=== PATIENT | female | born 1940 | race Caucasian/White ===

== ENCOUNTER → 2017-09-20 | Outpatient (CLI) | payer MEDICARE, BC | END | disposition home or self-care (01) | LOC: KCIC MRI 13:03 | DX: M16.11 Unilateral primary osteoarthritis, right hip (principal); M25.751 Osteophyte, right hip | CPT/HCPCS: 73721 ==

== ENCOUNTER → 2017-10-20 | Outpatient (CLI) | payer MEDICARE, BC ==
[2017-10-20] MEDS: methylPREDNISolone ACETATE 40 MG/ML VIAL. INT ART (15:40)
[2017-10-20] MEDS: LIDOCAINE 1% Multi-Dose 20 ML VIAL. ID (15:40)
[2017-10-20] MEDS: BUPIVACAINE MPF 0.5% 10 ML VIAL for KCIC. IJ (15:40)
[2017-10-20] MEDS: IOHEXOL 300 MG/ML 50 ML VIAL. INT ART (15:40)
== END | disposition home or self-care (01) ==
LOC: KCIC 13:12
DX: M16.11 Unilateral primary osteoarthritis, right hip (principal)
CPT/HCPCS: 20610; 77002; J1030; Q9967

== ENCOUNTER → 2018-01-31 | Outpatient (CLI) | payer MEDICARE, BC ==
[2018-01-31 09:11] LABS: INR 0.9 (0.8-1.1)
[2018-01-31 09:12] LABS: PARTIAL THROMBOPLASTIN TIME 26 SEC (24-38)
[2018-01-31 10:07] LABS: SEDIMENTATION RATE 35 (0-25)
[2018-01-31 22:11] LABS: MRSA BY PCR Negative (Negative)
== END | disposition home or self-care (01) ==
LOC: SURGPAT 13:06
DX: Z01.818 Encounter for other preprocedural examination (principal); I10 Essential (primary) hypertension; J84.10 Pulmonary fibrosis, unspecified
CPT/HCPCS: 36415; 71046; 85610; 85651; 85730; 87641; 93005

== ENCOUNTER 2018-05-20 18:46 | Inpatient (IN) | payer MEDICARE, BC ==
[~2018-05-20] VITALS: Ht 162.6 cm; Wt 88.5 kg
[~2018-05-20 18:46] MED LIST: ASCO1TAB5 PO; BIOT10005 PO; CHOL100013 PO; ESTR2TAB4 PO; FAMO40TA4 PO; LEVO50TA5 PO; METF500T16 PO; POTA20TA82 PO; POTA99TA3 PO
[2018-05-20 21:00] VITALS: BP 146/76
[2018-05-20 21:15] VITALS: BP 142/52
[2018-05-20 21:30] VITALS: BP 112/53
[2018-05-20] MEDS ORDERED: ACETAMINOPHEN 325 MG TABLET. PO PRN (21:30)
[2018-05-20] MEDS ORDERED: MORPHINE SULFATE 2 MG/ML VIAL. IV PRN (21:30)
[2018-05-20 22:00] VITALS: BP 137/49
[2018-05-20] MEDS ORDERED: PANTOPRAZOLE IV PUSH 40 MG VIAL. IVP ONE (22:00)
[2018-05-20] MEDS ORDERED: METF10007 PO (22:02)
[2018-05-20] MEDS ORDERED: GLYB2.5T2 PO (22:02)
[2018-05-20] MEDS: PANTOPRAZOLE SODIUM IV DRIP 80 MG in IV NORMAL SALINE 100ML 100 ML IV SCH (22:26)
[2018-05-20] MEDS: IV NORMAL SALINE 1000ML BAG 1,000 ML IV SCH (22:27)
[2018-05-20 23:00] VITALS: BP 131/51
[2018-05-21] VITALS (25 sets, daily range): BP systolic 84–160; BP diastolic 39–73
[2018-05-21 05:02] LABS: BASO # 0.1 x10^3/uL (0.0-0.2); BASO % 1 % (0-3); EOS # 0.1 x10^3/uL (0.0-0.7); EOS % 2 % (0-3); HEMATOCRIT 30.4 % (36.0-47.0); HEMOGLOBIN 10.4 g/dL (12.0-15.5); LYMPH # 2.2 x10^3/uL (1.0-4.8); LYMPH % 28 % (24-48); MEAN CORPUSCULAR HEMOGLOBIN 35 pg (25-35); MEAN CORPUSCULAR HGB CONC 34 g/dL (31-37); MEAN CORPUSCULAR VOLUME 101 fL (79-100); MONO # 0.8 x10^3/uL (0.0-1.1); MONO % 11 % (0-9); NEUT # 4.7 x10^3uL (1.8-7.7); NEUT % 59 % (31-73); PLATELET COUNT 191 x10^3/uL (140-400); RED BLOOD COUNT 3.01 x10^6/uL (3.50-5.40); RED CELL DISTRIBUTION WIDTH 13.5 % (11.5-14.5); WHITE BLOOD COUNT 7.9 x10^3/uL (4.0-11.0)
[2018-05-21 05:08] LABS: PROTHROMBIN TIME PATIENT 14.3 SEC (11.7-14.0)
[2018-05-21 05:25] LABS: CALCIUM 7.8 mg/dL (8.5-10.1); CREATININE 0.6 mg/dL (0.6-1.0); GFR 97.2; POTASSIUM 4.2 mmol/L (3.5-5.1)
[2018-05-21] MEDS: PANTOPRAZOLE SODIUM IV DRIP 80 MG in IV NORMAL SALINE 100ML 100 ML IV SCH ×2 (06:47→22:53)
[2018-05-21] MEDS ORDERED: PANTOPRAZOLE IV PUSH 40 MG VIAL. IVP SCH (07:30)
[2018-05-21] MEDS: ONDANSETRON PF 4 MG/2 ML VIAL. IV PRN ×2 (09:39→21:55)
[2018-05-21] MEDS ORDERED: HEPARIN for NUC MED 500 UNIT/5 ML DISP.SYRIN. IV ONE (10:30)
[2018-05-21] MEDS ORDERED: IV NORMAL SALINE 1000ML BAG 1,000 ML IV ONE (10:45)
--- NOTE | 2018-05-21 12:39 | RAD ---
EXAM: Gastrointestinal bleeding study. HISTORY: Gastrointestinal hemorrhage, hypotension. COMPARISON: None. FINDINGS: 33 mCi technetium 99m UltraTag red blood cells were administered intravenously. Scintigraphic images of the abdomen were obtained through one hour. Activity develops within the left upper quadrant at approximately 33 minutes. This appears to be in the region of the splenic flexure of the colon. Activity passes retrograde into the transverse portion and slightly into the descending portion. IMPRESSION: 1. Active bleeding in the region of the splenic flexure of the colon. These findings were called to Jim by Haresh Brunson on 05/21/2018 at 12:34 PM. Electronically signed by: Basil Brunson MD (05/21/2018 12:36 PM) [facility]
[2018-05-21 12:52] LABS: HEMATOCRIT 29.8 % (36.0-47.0); HEMOGLOBIN 10.2 g/dL (12.0-15.5)
[2018-05-21] MEDS ORDERED: DEXTROSE 50% 25 GM / 50ML DISP.SYRIN. IV PRN (13:00)
--- NOTE | 2018-05-21 13:04 | PDOC1 ---
History and Physical Date of Admission Date of Admission 05/21/18 Identification/Chief Complaint Chief Complaint gib Source Source: Chart review, Patient History of Present Illness History of Present Illness 78YO f, previous EMT, with dm2, was transferred from [facility] for lower gib. pt said she has diverticula thinking it is from there and never happened before. SHe started to have bright red BM with some clots yesterday, 2 times before going to [facility] and 2 times here overnight. Pt said it looks "like wine". hb 14 in [facility], 10 here. BP lower side at 80s-90s systolic. when asked if she has any abd pain or N/V, she just said"no symptom". Past Medical History Endocrine: Diabetes Past Surgical History Past Surgical History: Other, No pertinent history Family History Family History: Hypertension Social History Smoke: No ALCOHOL: none Drugs: None Current Medications Current Medications Current Medications Medications (Trade) Dose Ordered Sig/Marco Start Time Stop Time Status Last Admin Dose Admin Acetaminophen (Tylenol) 650 mg PRN Q6HRS PRN 05/20/18 21:30 Heparin Sodium (Porcine) (HEPARIN for NUC MED) 100 unit 1X ONCE 05/21/18 10:30 05/21/18 10:31 DC 05/21/18 10:30 100 UNIT Morphine Sulfate (Morphine Sulfate) 2 mg PRN Q2HR PRN 05/20/18 21:30 Ondansetron HCl (Zofran) 4 mg PRN Q6HRS PRN 05/20/18 21:30 05/21/18 09:39 4 MG Pantoprazole Sodium (PROTONIX VIAL for IV PUSH) 80 mg 1X ONCE 05/20/18 22:00 05/20/18 22:01 DC 05/20/18 22:27 80 MG Pantoprazole Sodium 80 mg/ Sodium Chloride 100 ml @ 10 mls/hr Q10H 05/20/18 22:00 05/21/18 06:47 10 MLS/HR Sodium Chloride 1,000 ml @ 1,000 mls/hr 1X ONCE 05/21/18 10:45 05/21/18 11:44 DC 05/21/18 10:38 1,000 MLS/HR Allergies Allergies Allergies Coded Allergies Type Severity Reaction Last Updated Verified codeine Allergy Intermediate 10/20/17 Yes cephalexin Adverse Reaction Intermediate Rash 02/03/18 Yes ROS Review of System CONSTITUTIONAL: No fever or chills EYES: No recent changes SKIN: No rash or itching CARDIOVASCULAR: No chest pain, syncope, palpitations, or edema RESPIRATORY: No SOB or cough GASTROINTESTINAL: No nausea, vomiting or abdominal pain NEUROLOGICAL: No headaches or weakness ENDOCRINE: No cold or heat intolerance GENITOURINARY: No urgency or frequency of urination MUSCULOSKELETAL: No back pain or joint pain LYMPHATICS: No enlarged lymph nodes PSYCHIATRIC: No anxiety or depression Physical Exam Physical Exam GEN.: No apparent distress. Alert and oriented. HEENT: Head is normocephalic, atraumatic NECK: Supple. LUNGS: Clear to auscultation. HEART: RRR, S1, S2 present. Peripheral pulses intact ABDOMEN: Soft, nontender. very active bowel sounds. EXTREMITIES: Without any cyanosis. NEUROLOGIC: Normal speech, normal tone PSYCHIATRIC: Normal affect, normal mood. SKIN: No ulcerations Vitals Vitals Vital Signs Date Time Temp Pulse Resp B/P (MAP) Pulse Ox O2 Delivery O2 Flow Rate FiO2 05/21/18 11:00 79 16 131/57 (81) 97 Nasal Cannula 3.0 05/21/18 04:00 97.5 97.5 Labs Labs Laboratory Tests Test 05/21/18 03:45 05/21/18 12:45 White Blood Count 7.9 x10^3/uL (4.0-11.0) Red Blood Count 3.01 x10^6/uL (3.50-5.40) Hemoglobin 10.4 g/dL (12.0-15.5) 10.2 g/dL (12.0-15.5) Hematocrit 30.4 % (36.0-47.0) 29.8 % (36.0-47.0) Mean Corpuscular Volume 101 fL (79-100) Mean Corpuscular Hemoglobin 35 pg (25-35) Mean Corpuscular Hemoglobin Concent 34 g/dL (31-37) 34 g/dL (31-37) Red Cell Distribution Width 13.5 % (11.5-14.5) Platelet Count 191 x10^3/uL (140-400) Neutrophils (%) (Auto) 59 % (31-73) Lymphocytes (%) (Auto) 28 % (24-48) Monocytes (%) (Auto) 11 % (0-9) Eosinophils (%) (Auto) 2 % (0-3) Basophils (%) (Auto) 1 % (0-3) Neutrophils # (Auto) 4.7 x10^3uL (1.8-7.7) Lymphocytes # (Auto) 2.2 x10^3/uL (1.0-4.8) Monocytes # (Auto) 0.8 x10^3/uL (0.0-1.1) Eosinophils # (Auto) 0.1 x10^3/uL (0.0-0.7) Basophils # (Auto) 0.1 x10^3/uL (0.0-0.2) Prothrombin Time 14.3 SEC (11.7-14.0) Prothromb Time International Ratio 1.2 (0.8-1.1) Sodium Level 141 mmol/L (136-145) Potassium Level 4.2 mmol/L (3.5-5.1) Chloride Level 106 mmol/L (98-107) Carbon Dioxide Level 30 mmol/L (21-32) Anion Gap 5 (6-14) Blood Urea Nitrogen 25 mg/dL (7-20) Creatinine 0.6 mg/dL (0.6-1.0) Estimated GFR (Cockcroft-Gault) 97.2 Glucose Level 100 mg/dL (70-99) Calcium Level 7.8 mg/dL (8.5-10.1) Laboratory Tests Test 05/21/18 03:45 05/21/18 12:45 White Blood Count 7.9 x10^3/uL (4.0-11.0) Red Blood Count 3.01 x10^6/uL (3.50-5.40) Hemoglobin 10.4 g/dL (12.0-15.5) 10.2 g/dL (12.0-15.5) Hematocrit 30.4 % (36.0-47.0) 29.8 % (36.0-47.0) Mean Corpuscular Volume 101 fL (79-100) Mean Corpuscular Hemoglobin 35 pg (25-35) Mean Corpuscular Hemoglobin Concent 34 g/dL (31-37) 34 g/dL (31-37) Red Cell Distribution Width 13.5 % (11.5-14.5) Platelet Count 191 x10^3/uL (140-400) Neutrophils (%) (Auto) 59 % (31-73) Lymphocytes (%) (Auto) 28 % (24-48) Monocytes (%) (Auto) 11 % (0-9) Eosinophils (%) (Auto) 2 % (0-3) Basophils (%) (Auto) 1 % (0-3) Neutrophils # (Auto) 4.7 x10^3uL (1.8-7.7) Lymphocytes # (Auto) 2.2 x10^3/uL (1.0-4.8) Monocytes # (Auto) 0.8 x10^3/uL (0.0-1.1) Eosinophils # (Auto) 0.1 x10^3/uL (0.0-0.7) Basophils # (Auto) 0.1 x10^3/uL (0.0-0.2) Prothrombin Time 14.3 SEC (11.7-14.0) Prothromb Time International Ratio 1.2 (0.8-1.1) Sodium Level 141 mmol/L (136-145) Potassium Level 4.2 mmol/L (3.5-5.1) Chloride Level 106 mmol/L (98-107) Carbon Dioxide Level 30 mmol/L (21-32) Anion Gap 5 (6-14) Blood Urea Nitrogen 25 mg/dL (7-20) Creatinine 0.6 mg/dL (0.6-1.0) Estimated GFR (Cockcroft-Gault) 97.2 Glucose Level 100 mg/dL (70-99) Calcium Level 7.8 mg/dL (8.5-10.1) VTE Prophylaxis Ordered VTE Prophylaxis Devices: Yes VTE Pharmacological Prophylaxi: No Assessment/Plan Assessment/Plan active lower gib 2/2 diverticular bleeding likely acute anemia with gib hypotension with gib dm2 hld hypothyroidism plan: gi consult on protonix drip, can cont for now. not helping much if lower gib HH q6h 1u PRBC TRANSFusion given low BP altho Hb is ok. however, ICU nurse paged 4 h after i saw pt and said transfusion not done yet and cont having 4 times bloody BM and + bleeding scan at splenic flexure told ICU nurse to get IR consult and transfuse and cont monitor HH will get sx on board hold po home meds change synthroid to iv ssi, low dose for now IVF NS 100cc/h, BP actually better after bolus ICU care cc time 35min DARELL GUAMAN MD May 21, 2018 13:04
[2018-05-21] MEDS ORDERED: SODIUM PHOSPHATES 19/7GM 133 ML ENEMA. PR ONE ×2 (13:15)
--- NOTE | 2018-05-21 13:52 | PDOC2 ---
GI CONSULT Reason For Consult: gi bleed HPI: HPI: 78 year old female transfer from [facility]. She was at home yesterday when she began to have blood in her stools. She started to have more blood in her BMs. Initial Hgb 10.4.down to 10.2. Bleeding scan positive at splenic flexure. She has been taking Aleve for her hip. She reports a colonoscopy with Dr elizabeth 10 years ago that revealed a solitary diverticulum. She was planning on having another colonoscopy this year. PMH: PMH: Diabete left hip Vit D def hypothyroids GERD Meds: See MAR Includes daily aleve FH: Family History: Hypertension Social History: Smoke: No ALCOHOL: none Drugs: None ROS: GEN: Denies fevers, chills, sweats HEENT: Denies blurred vision, sore throat CV: Denies chest pain RESP: Denies shortness of air, cough GI: Per HPI : Denies hematuria, dysuria ENDO: Denies weight changes NEURO: Denies confusion, dizziness MSK: left hip pain SKIN: Denies jaundice, pruritus VItals: Vitals: Vital Signs Date Time Temp Pulse Resp B/P (MAP) Pulse Ox O2 Delivery O2 Flow Rate FiO2 05/21/18 13:34 97.7 78 16 111/45 97.7 05/21/18 11:00 97 Nasal Cannula 3.0 Labs: Labs: Laboratory Tests Test 05/21/18 03:45 05/21/18 12:45 White Blood Count 7.9 x10^3/uL (4.0-11.0) Red Blood Count 3.01 x10^6/uL (3.50-5.40) Hemoglobin 10.4 g/dL (12.0-15.5) 10.2 g/dL (12.0-15.5) Hematocrit 30.4 % (36.0-47.0) 29.8 % (36.0-47.0) Mean Corpuscular Volume 101 fL (79-100) Mean Corpuscular Hemoglobin 35 pg (25-35) Mean Corpuscular Hemoglobin Concent 34 g/dL (31-37) 34 g/dL (31-37) Red Cell Distribution Width 13.5 % (11.5-14.5) Platelet Count 191 x10^3/uL (140-400) Neutrophils (%) (Auto) 59 % (31-73) Lymphocytes (%) (Auto) 28 % (24-48) Monocytes (%) (Auto) 11 % (0-9) Eosinophils (%) (Auto) 2 % (0-3) Basophils (%) (Auto) 1 % (0-3) Neutrophils # (Auto) 4.7 x10^3uL (1.8-7.7) Lymphocytes # (Auto) 2.2 x10^3/uL (1.0-4.8) Monocytes # (Auto) 0.8 x10^3/uL (0.0-1.1) Eosinophils # (Auto) 0.1 x10^3/uL (0.0-0.7) Basophils # (Auto) 0.1 x10^3/uL (0.0-0.2) Prothrombin Time 14.3 SEC (11.7-14.0) Prothromb Time International Ratio 1.2 (0.8-1.1) Sodium Level 141 mmol/L (136-145) Potassium Level 4.2 mmol/L (3.5-5.1) Chloride Level 106 mmol/L (98-107) Carbon Dioxide Level 30 mmol/L (21-32) Anion Gap 5 (6-14) Blood Urea Nitrogen 25 mg/dL (7-20) Creatinine 0.6 mg/dL (0.6-1.0) Estimated GFR (Cockcroft-Gault) 97.2 Glucose Level 100 mg/dL (70-99) Calcium Level 7.8 mg/dL (8.5-10.1) Imaging: Imaging: EXAM: Gastrointestinal bleeding study. HISTORY: Gastrointestinal hemorrhage, hypotension. COMPARISON: None. FINDINGS: 33 mCi technetium 99m UltraTag red blood cells were administered intravenously. Scintigraphic images of the abdomen were obtained through one hour. Activity develops within the left upper quadrant at approximately 33 minutes. This appears to be in the region of the splenic flexure of the colon. Activity passes retrograde into the transverse portion and slightly into the descending portion. IMPRESSION: 1. Active bleeding in the region of the splenic flexure of the colon. These findings were called to Jim by Haresh Brunson on 05/21/2018 at 12:34 PM. Electronically signed by: Basil Brunson MD (05/21/2018 12:36 PM) PE: GEN: NAD HEENT: Atraumatic, PERRLA LUNGS: CTAB HEART: RRR, no murmurs ABD: NABS, S/ND/NT, no masses EXTREMITY: No edema SKIN: No rashes, no jaundice NEURO/PSYCH: A & O 3 A/P: A/P: A) 1) GIB 2) Positive bleed scan 3) Anemia P) Started PPI gtts last night Colonoscopy today- risks and benefits explained HAVEN BUSH MD May 21, 2018 13:52
[2018-05-21] MEDS: LEVOTHYROXINE SODIUM IVP SCH (13:56)
[2018-05-21] MEDS: NORMAL SALINE IVP SCH (13:56)
[2018-05-21] MEDS ORDERED: MIDAZOLAM HCL/PF 5 MG/5 ML VIAL. ONE ×2 (14:00→14:11)
[2018-05-21] MEDS ORDERED: fentaNYL PF VIAL 100 MCG/2 ML VIAL ONE ×2 (14:00→14:12)
[2018-05-21] MEDS ORDERED: EPINEPHrine SYRINGE 1 MG/10 ML SYRINGE ONE ×2 (14:00→14:47)
[2018-05-21] MEDS ORDERED: EPINEPHrine 1 MG/ML VIAL ONE (14:46)
[2018-05-21] MEDS ORDERED: fentaNYL PF VIAL 100 MCG/2 ML VIAL IV ONE ×2 (14:50→14:54)
[2018-05-21] MEDS ORDERED: MIDAZOLAM HCL/PF 5 MG/5 ML VIAL. IV ONE ×4 (14:51→15:02)
[2018-05-21] MEDS: IV NORMAL SALINE 1000ML BAG 1,000 ML IV SCH (15:00)
--- NOTE | 2018-05-21 15:47 | OP ---
DATE OF SURGERY: 05/21/2018 REQUESTING PHYSICIAN: Dr. Peters. PRIMARY CARE PHYSICIAN: Dr. Raman Plunkett. REASON FOR PROCEDURE: GI bleed. HISTORY OF PRESENT ILLNESS: This is a 78-year-old female who presented with rectal bleeding. She has had bright red blood per rectum and underwent a nuclear medicine bleeding scan that showed active bleeding in the region of the splenic flexure. She is to undergo colonoscopy for further evaluation. The risks and benefits including bleeding, perforation, non-diagnosis and sedation were explained and she has agreed to proceed. MEDICATIONS: 1. Versed 4 mg. 2. Fentanyl 100 mcg. DESCRIPTION OF PROCEDURE: The Olympus endoscope was introduced from the rectum and passed the sigmoid colon, descending colon, splenic flexure, transverse colon, ascending colon. The cecum was identified by the presence of the appendiceal orifice and ileocecal valve. The colon visualization was difficult due to both blood and stool in the colon. Of note, the colon was unprepped. A 360-degree view was performed upon withdrawal. Blood in stool was noted throughout the colon. Diverticulosis was also found. There was no one site of active bleeding. Visualization was precluded by the blood and stool. Retroflexion was performed. The scope was completely withdrawn. There were no complications. FINDINGS: 1. Blood and stool in the colon, precluding visualization. 2. Diverticulosis. 3. No single active site of bleeding found. Plan discussed with granddaughter, who is her DPOA. At this time, we will proceed with an Interventional Radiology consult due to positive bleeding scan. If they are unable to locate the bleeder or stop it, then we can consider doing a bowel prep and repeat colonoscopy tomorrow. At this time, we will continue her PPI drip and keep her n.p.o. Thank you for allowing me to participate in the care of this patient. HAVEN BUSH MD DR: BEV/boby JOB#: [id number] / [id number] RAMAN Marcano MD, CHUNMEI MD
[2018-05-21 16:22] LABS: HEMATOCRIT 31.9 % (36.0-47.0); HEMOGLOBIN 11.1 g/dL (12.0-15.5)
[2018-05-21] MEDS: INSULIN LISPRO 300 UNITS/3 ML INSULN.PEN. SQ SCH (17:00)
[2018-05-21] MEDS ORDERED: IOHEXOL 300 MG/ML 100ML VIAL. IV ONE (17:15)
--- NOTE | 2018-05-21 17:44 | RAD ---
CT ANGIOGRAPHY ABD AND PELVIS dated 05/21/2018 4:52 PM Indication:. Bleedingpositive gi bleed, Omni 300 90ml
. Comparison: Nuclear medicine study dated same day. Technique: Contiguous axial imaging of the abdomen and pelvis performed with and without the administration of 90 cc Isovue-370. Study performed as dedicated GI bleeding study with imaging acquired in the arterial and portal venous phases. Thin cut coronal and sagittal MIPS reconstructions and 3-D rotational reconstructions. One or more of the following individualized dose reduction techniques were utilized for this examination: 1. Automated exposure control 2. Adjustment of the mA and/or kV according to patient size 3. Use of iterative reconstruction technique Findings: There is some high density material within the splenic flexure and transverse colon on the precontrast images, limiting evaluation. This remains fairly static on the arterial and venous phases. There are a few scattered diverticula. No definite area of wall thickening or pericolonic inflammatory stranding. The appendix is normal in caliber. Abdominal aorta normal in caliber. There are abscess chronic calcifications throughout. There is mild narrowing of the celiac artery origin and moderate narrowing of SMA origin due to calcific plaque. Liver and spleen are homogeneous. No apparent hepatic mass. Biliary tree normal in caliber. Gallbladder surgically absent. Pancreas, adrenal glands and kidneys are unremarkable. No hydronephrosis. Images of pelvis show nondistended urinary bladder. Uterus is surgically absent.. No free fluid or lymphadenopathy. Limited images of lung bases are clear. Heart size within normal limits. No pleural or pericardial effusion. Bone windows show no acute findings. Multilevel spondylosis. IMPRESSION: 1. There is high density material within the splenic flexure and transverse colon on the precontrast images which remains relatively static on the postcontrast series. This could represent some intraluminal hemorrhage, although there is no definite active source identified on the CT exam. Based on the prior nuclear medicine study active hemorrhage was present and this could be intermittent. Correlate clinically. 2. Diverticulosis. 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 Electronically signed by: Kenny Trinh MD (05/21/2018 5:41 PM) [id number]
[2018-05-21] MEDS ORDERED: PEG 3350/NA SULF,BICARB,CL/KCL 4,000 ML SOLUTION. PO ONE (18:30)
[2018-05-22] VITALS (33 sets, daily range): BP systolic 69–148; BP diastolic 32–64
[2018-05-22 01:28] LABS: HEMATOCRIT 25.5 % (36.0-47.0)
[2018-05-22 04:42] LABS: BASO % 1 % (0-3); EOS # 0.1 x10^3/uL (0.0-0.7); EOS % 2 % (0-3); HEMATOCRIT 26.8 % (36.0-47.0); LYMPH # 2.3 x10^3/uL (1.0-4.8); LYMPH % 24 % (24-48); MEAN CORPUSCULAR HEMOGLOBIN 34 pg (25-35); MEAN CORPUSCULAR HGB CONC 34 g/dL (31-37); MEAN CORPUSCULAR VOLUME 101 fL (79-100); MONO # 0.9 x10^3/uL (0.0-1.1); MONO % 9 % (0-9); NEUT # 6.2 x10^3uL (1.8-7.7); NEUT % 65 % (31-73); PLATELET COUNT 164 x10^3/uL (140-400); RED BLOOD COUNT 2.66 x10^6/uL (3.50-5.40); RED CELL DISTRIBUTION WIDTH 13.9 % (11.5-14.5); WHITE BLOOD COUNT 9.5 x10^3/uL (4.0-11.0)
[2018-05-22 05:03] LABS: ALBUMIN 2.1 g/dL (3.4-5.0); ALBUMIN/GLOBULIN RATIO 0.8 (1.0-1.7); CALCIUM 7.6 mg/dL (8.5-10.1); CREATININE 0.5 mg/dL (0.6-1.0); POTASSIUM 3.9 mmol/L (3.5-5.1); TOTAL BILIRUBIN 0.3 mg/dL (0.2-1.0); TOTAL PROTEIN 4.9 g/dL (6.4-8.2)
[2018-05-22] MEDS: INSULIN LISPRO 300 UNITS/3 ML INSULN.PEN. SQ SCH ×3 (08:00→17:00)
[2018-05-22] MEDS: PANTOPRAZOLE SODIUM IV DRIP 80 MG in IV NORMAL SALINE 100ML 100 ML IV SCH ×2 (08:14→21:35)
--- NOTE | 2018-05-22 09:25 | PDOC2 ---
CONSULT Date of Consult Date of Consult DATE: 05/22/18 TIME: 09:19 History of Present Illness Reason for Visit: The patient is a 78 year old female who was admitted with a lower GI bleed. On Wednesday she noticed passage of significant amount of blood in her stool. She had no other symptoms and denies pain. Past Medical History Endocrine: Diabetes Past Surgical History Past Surgical History: Other, No pertinent history Family History Family History: Hypertension Social History No ALCOHOL: none Drugs: None Current Medications Current Medications Current Medications Sodium Chloride 1,000 ml @ 100 mls/hr Q10H IV Last administered on 05/21/18at 15:00; Start 05/20/18 at 21:30 Pantoprazole Sodium (PROTONIX VIAL for IV PUSH) 40 mg DAILYAC IVP ; Start at 07:30; Stop 05/21/18 at 13:41; Status DC Ondansetron HCl (Zofran) 4 mg PRN Q6HRS PRN IV NAUSEA/VOMITING Last administered on 05/21/18at 21:55; Start 05/20/18 at 21:30 Acetaminophen (Tylenol) 650 mg PRN Q6HRS PRN PO MILD PAIN; Start 05/20/18 at 21 :30 Morphine Sulfate (Morphine Sulfate) 2 mg PRN Q2HR PRN IV PAIN; Start 05/20/18 at 21:30 Pantoprazole Sodium 80 mg/ Sodium Chloride 100 ml @ 10 mls/hr Q10H IV Last administered on 05/22/18at 08:14; Start 05/20/18 at 22:00 Pantoprazole Sodium (PROTONIX VIAL for IV PUSH) 80 mg 1X ONCE IVP Last administered on 05/20/18at 22:27; Start 05/20/18 at 22:00; Stop 05/20/18 at 22:01 ; Status DC Heparin Sodium (Porcine) (HEPARIN for NUC MED) 100 unit 1X ONCE IV Last administered on 05/21/18at 10:30; Start 05/21/18 at 10:30; Stop 05/21/18 at 10:31 ; Status DC Sodium Chloride 1,000 ml @ 1,000 mls/hr 1X ONCE IV Last administered on at 10:38; Start 05/21/18 at 10:45; Stop 05/21/18 at 11:44; Status DC Levothyroxine Sodium 25 mcg/ Sodium Chloride 5 ml @ 100 mls/hr DAILY IVP Last administered on 05/21/18at 13:56; Start 05/21/18 at 13:00 Insulin Human Lispro (HumaLOG) 0-5 UNITS TIDWMEALS SQ ; Start 05/21/18 at 17:00 Dextrose (Dextrose 50%-Water Syringe) 12.5 gm PRN Q15MIN PRN IV SEE COMMENTS; Start 05/21/18 at 13:00 Sodium Monofluorophosphate (Fleet Adult) 133 ml 1X ONCE UT Last administered on 05/21/18at 13:58; Start 05/21/18 at 13:15; Stop 05/21/18 at 13:20; Status DC Sodium Monofluorophosphate (Fleet Adult) 133 ml 1X ONCE UT Last administered on 05/21/18at 13:55; Start 05/21/18 at 13:15; Stop 05/21/18 at 13:26; Status DC Midazolam HCl (Versed) 5 mg STK-MED ONCE .ROUTE ; Start 05/21/18 at 14:11; Stop 05/21/18 at 14:12; Status DC Fentanyl Citrate (Fentanyl 2ml Vial) 100 mcg STK-MED ONCE .ROUTE ; Start at 14:12; Stop 05/21/18 at 14:13; Status DC Epinephrine HCl (Adrenalin) 1 mg STK-MED ONCE .ROUTE ; Start 05/21/18 at 14:46; Stop 05/21/18 at 14:47; Status DC Epinephrine HCl (EPINEPHrine SYRINGE) 1 mg STK-MED ONCE .ROUTE ; Start 05/21/18 at 14:47; Stop 05/21/18 at 14:48; Status DC Fentanyl Citrate (Fentanyl 2ml Vial) 100 mcg STK-MED ONCE IV Last administered on 05/21/18at 14:50; Start 05/21/18 at 14:50; Stop 05/21/18 at 15:55; Status DC Midazolam HCl (Versed) 5 mg STK-MED ONCE IV Last administered on 05/21/18at 14: 51; Start 05/21/18 at 14:51; Stop 05/21/18 at 15:55; Status DC Midazolam HCl (Versed) 5 mg STK-MED ONCE IV Last administered on 05/21/18at 14: 52; Start 05/21/18 at 14:52; Stop 05/21/18 at 15:55; Status DC Fentanyl Citrate (Fentanyl 2ml Vial) 100 mcg STK-MED ONCE IV Last administered on 05/21/18at 14:54; Start 05/21/18 at 14:54; Stop 05/21/18 at 15:55; Status DC Midazolam HCl (Versed) 5 mg STK-MED ONCE IV Last administered on 05/21/18at 14: 56; Start 05/21/18 at 14:56; Stop 05/21/18 at 15:55; Status DC Midazolam HCl (Versed) 5 mg STK-MED ONCE IV Last administered on 05/21/18at 15: 02; Start 05/21/18 at 15:02; Stop 05/21/18 at 15:55; Status DC Iohexol (Omnipaque 300 Mg/ml) 90 ml 1X ONCE IV ; Start 05/21/18 at 17:15; Stop 05/21/18 at 17:17; Status DC Sodium Cl/Sod Bicarb/Potass Cl/ PEG (Golytely) 4,000 ml 1X ONCE PO Last administered on 05/21/18at 19:33; Start 05/21/18 at 18:30; Stop 05/21/18 at 18:31 ; Status DC Active Scripts Active Reported Metformin Hcl 1,000 Mg Tablet 1,000 Mg PO BID Glyburide 2.5 Mg Tablet 1 Tab PO DAILY Vitamin D (Cholecalciferol (Vitamin D3)) 1,000 Unit Capsule 1,500 Unit PO DAILY Famotidine 40 Mg Tablet 40 Mg PO DAILY Levothyroxine Sodium 50 Mcg Tablet 50 Mcg PO DAILYAC Estrace (Estradiol) 2 Mg Tablet 2 Mg PO DAILY Biotin 10,000 Mcg Capsule 10,000 Mcg PO DAILY Sugey-C 1,000 Mg Tablet (Ascorbate Calcium/Bioflavonoid) 1 Each Tablet 1 Each PO DAILY Allergies Allergies: Coded Allergies: codeine (Verified Allergy, Intermediate, 10/20/17) cephalexin (Verified Adverse Reaction, Intermediate, Rash, 02/03/18) ROS General: No: Chills, Night Sweats, Fatigue, Malaise, Appetite, Other PSYCHOLOGICAL ROS: No: Anxiety, Behavioral Disorder, Concentration difficultie , Decreased libido, Depression, Disorientation, Hallucinations, Hostility, Irritablity, Memory difficulties, Mood Swings, Obsessive thoughts, Physical abuse, Sexual abuse, Sleep disturbances, Suicidal ideation, Other Eyes: No Blurry vision, No Decreased vision, No Double vision, No Dry eyes, No Excessive tearing, No Eye Pain, No Itchy Eyes, No Loss of vision, No Photophobia , No Scotomata, No Uses contacts, No Uses glasses, No Other HEENT: No: Heacaches, Visual Changes, Hearing change, Nasal congestion, Nasal discharge, Oral lesions, Sinus pain, Sore Throat, Epistaxis, Sneezing, Snoring, Tinnitus, Vertigo, Vocal changes, Other Respiratory: No: Cough, Hemoptysis, Orthopnea, Pleuritic Pain, Shortness of breath, SOB with excertion, Sputum Changes, Stridor, Tachypnea, Wheezing, Other Cardiovascular: No Chest Pain, No Palpitations, No Orthopnea, No Paroxysmal Noc. Dyspnea, No Edema, No Lt Headedness, No Other Gastrointestinal: No Nausea, No Vomiting, No Abdominal Pain, No Diarrhea, No Constipation, No Melena, No Hematochezia, No Other Genitourinary: No Dysuria, No Frequency, No Incontinence, No Hematuria, No Retention, No Discharge, No Urgency, No Pain, No Flank Pain, No Other, No , No , No , No , No , No , No Musculoskeletal: No Gait Disturbance, No Joint Pain, No Joint Stiffness, No Joint Swelling, No Muscle Pain, No Muscular Weakness, No Pain In:, No Swelling In:, No Other Skin: No Dry Skin, No Eczema, No Hair Changes, No Lumps, No Mole Changes, No Mottling, No Nail Changes, No Pruritus, No Rash, No Skin Lesion Changes, No Other, No Acne Physical Exam General: Alert, Oriented X3, Cooperative, No acute distress HEENT: Atraumatic Lungs: Clear to auscultation Abdomen: Soft Extremities: No clubbing, No cyanosis Skin: No rashes Neuro: Normal speech Psych/Mental Status: Mental status NL Vitals VITALS Vital Signs Date Time Temp Pulse Resp B/P (MAP) Pulse Ox O2 Delivery O2 Flow Rate FiO2 05/22/18 09:00 86 16 148/59 (88) 95 Nasal Cannula 2.0 05/22/18 08:00 97.9 97.9 Labs Labs Laboratory Tests Test 05/20/18 23:45 05/21/18 03:45 10/6/18 12:45 05/21/18 14:00 Nasal Screen MRSA (PCR) Negative (Negative) White Blood Count 7.9 x10^3/uL (4.0-11.0) Red Blood Count 3.01 x10^6/uL (3.50-5.40) Hemoglobin 10.4 g/dL (12.0-15.5) 10.2 g/dL (12.0-15.5) Hematocrit 30.4 % (36.0-47.0) 29.8 % (36.0-47.0) Mean Corpuscular Volume 101 fL (79-100) Mean Corpuscular Hemoglobin 35 pg (25-35) Mean Corpuscular Hemoglobin Concent 34 g/dL (31-37) 34 g/dL (31-37) Red Cell Distribution Width 13.5 % (11.5-14.5) Platelet Count 191 x10^3/uL (140-400) Neutrophils (%) (Auto) 59 % (31-73) Lymphocytes (%) (Auto) 28 % (24-48) Monocytes (%) (Auto) 11 % (0-9) Eosinophils (%) (Auto) 2 % (0-3) Basophils (%) (Auto) 1 % (0-3) Neutrophils # (Auto) 4.7 x10^3uL (1.8-7.7) Lymphocytes # (Auto) 2.2 x10^3/uL (1.0-4.8) Monocytes # (Auto) 0.8 x10^3/uL (0.0-1.1) Eosinophils # (Auto) 0.1 x10^3/uL (0.0-0.7) Basophils # (Auto) 0.1 x10^3/uL (0.0-0.2) Prothrombin Time 14.3 SEC (11.7-14.0) Prothromb Time International Ratio 1.2 (0.8-1.1) Sodium Level 141 mmol/L (136-145) Potassium Level 4.2 mmol/L (3.5-5.1) Chloride Level 106 mmol/L (98-107) Carbon Dioxide Level 30 mmol/L (21-32) Anion Gap 5 (6-14) Blood Urea Nitrogen 25 mg/dL (7-20) Creatinine 0.6 mg/dL (0.6-1.0) Estimated GFR (Cockcroft-Gault) 97.2 Glucose Level 100 mg/dL (70-99) Calcium Level 7.8 mg/dL (8.5-10.1) Glucose (Fingerstick) 132 mg/dL (70-99) Test 05/21/18 16:00 05/21/18 18:33 05/22/18 01:10 05/22/18 03:30 Hemoglobin 11.1 g/dL (12.0-15.5) 9.0 g/dL (12.0-15.5) Hematocrit 31.9 % (36.0-47.0) 25.5 % (36.0-47.0) Mean Corpuscular Hemoglobin Concent 35 g/dL (31-37) 35 g/dL (31-37) Glucose (Fingerstick) 123 mg/dL (70-99) Sodium Level 140 mmol/L (136-145) Potassium Level 3.9 mmol/L (3.5-5.1) Chloride Level 106 mmol/L (98-107) Carbon Dioxide Level 28 mmol/L (21-32) Anion Gap 6 (6-14) Blood Urea Nitrogen 18 mg/dL (7-20) Creatinine 0.5 mg/dL (0.6-1.0) Estimated GFR (Cockcroft-Gault) 120.0 BUN/Creatinine Ratio 36 (6-20) Glucose Level 100 mg/dL (70-99) Calcium Level 7.6 mg/dL (8.5-10.1) Total Bilirubin 0.3 mg/dL (0.2-1.0) Aspartate Amino Transf (AST/SGOT) 13 U/L (15-37) Alanine Aminotransferase (ALT/SGPT) 11 U/L (14-59) Alkaline Phosphatase 35 U/L (46-116) Total Protein 4.9 g/dL (6.4-8.2) Albumin 2.1 g/dL (3.4-5.0) Albumin/Globulin Ratio 0.8 (1.0-1.7) Test 05/22/18 04:30 05/22/18 08:13 White Blood Count 9.5 x10^3/uL (4.0-11.0) Red Blood Count 2.66 x10^6/uL (3.50-5.40) Hemoglobin 9.0 g/dL (12.0-15.5) Hematocrit 26.8 % (36.0-47.0) Mean Corpuscular Volume 101 fL (79-100) Mean Corpuscular Hemoglobin 34 pg (25-35) Mean Corpuscular Hemoglobin Concent 34 g/dL (31-37) Red Cell Distribution Width 13.9 % (11.5-14.5) Platelet Count 164 x10^3/uL (140-400) Neutrophils (%) (Auto) 65 % (31-73) Lymphocytes (%) (Auto) 24 % (24-48) Monocytes (%) (Auto) 9 % (0-9) Eosinophils (%) (Auto) 2 % (0-3) Basophils (%) (Auto) 1 % (0-3) Neutrophils # (Auto) 6.2 x10^3uL (1.8-7.7) Lymphocytes # (Auto) 2.3 x10^3/uL (1.0-4.8) Monocytes # (Auto) 0.9 x10^3/uL (0.0-1.1) Eosinophils # (Auto) 0.1 x10^3/uL (0.0-0.7) Basophils # (Auto) 0.0 x10^3/uL (0.0-0.2) Glucose (Fingerstick) 97 mg/dL (70-99) Laboratory Tests Test 05/21/18 12:45 05/21/18 14:00 05/21/18 16:00 05/21/18 18:33 Hemoglobin 10.2 g/dL (12.0-15.5) 11.1 g/dL (12.0-15.5) Hematocrit 29.8 % (36.0-47.0) 31.9 % (36.0-47.0) Mean Corpuscular Hemoglobin Concent 34 g/dL (31-37) 35 g/dL (31-37) Glucose (Fingerstick) 132 mg/dL (70-99) 123 mg/dL (70-99) Test 05/22/18 01:10 05/22/18 03:30 05/22/18 04:30 05/22/18 08:13 Hemoglobin 9.0 g/dL (12.0-15.5) 9.0 g/dL (12.0-15.5) Hematocrit 25.5 % (36.0-47.0) 26.8 % (36.0-47.0) Mean Corpuscular Hemoglobin Concent 35 g/dL (31-37) 34 g/dL (31-37) Sodium Level 140 mmol/L (136-145) Potassium Level 3.9 mmol/L (3.5-5.1) Chloride Level 106 mmol/L (98-107) Carbon Dioxide Level 28 mmol/L (21-32) Anion Gap 6 (6-14) Blood Urea Nitrogen 18 mg/dL (7-20) Creatinine 0.5 mg/dL (0.6-1.0) Estimated GFR (Cockcroft-Gault) 120.0 BUN/Creatinine Ratio 36 (6-20) Glucose Level 100 mg/dL (70-99) Calcium Level 7.6 mg/dL (8.5-10.1) Total Bilirubin 0.3 mg/dL (0.2-1.0) Aspartate Amino Transf (AST/SGOT) 13 U/L (15-37) Alanine Aminotransferase (ALT/SGPT) 11 U/L (14-59) Alkaline Phosphatase 35 U/L (46-116) Total Protein 4.9 g/dL (6.4-8.2) Albumin 2.1 g/dL (3.4-5.0) Albumin/Globulin Ratio 0.8 (1.0-1.7) White Blood Count 9.5 x10^3/uL (4.0-11.0) Red Blood Count 2.66 x10^6/uL (3.50-5.40) Mean Corpuscular Volume 101 fL (79-100) Mean Corpuscular Hemoglobin 34 pg (25-35) Red Cell Distribution Width 13.9 % (11.5-14.5) Platelet Count 164 x10^3/uL (140-400) Neutrophils (%) (Auto) 65 % (31-73) Lymphocytes (%) (Auto) 24 % (24-48) Monocytes (%) (Auto) 9 % (0-9) Eosinophils (%) (Auto) 2 % (0-3) Basophils (%) (Auto) 1 % (0-3) Neutrophils # (Auto) 6.2 x10^3uL (1.8-7.7) Lymphocytes # (Auto) 2.3 x10^3/uL (1.0-4.8) Monocytes # (Auto) 0.9 x10^3/uL (0.0-1.1) Eosinophils # (Auto) 0.1 x10^3/uL (0.0-0.7) Basophils # (Auto) 0.0 x10^3/uL (0.0-0.2) Glucose (Fingerstick) 97 mg/dL (70-99) Assessment/Plan Assessment/Plan 78 year old female with lower GI bleed, scan suggestive of splenic flexure source. Colonoscopy planned for today, agree with plan of endoscopy with IR to follow. Surgery an option if less invasive measures do not control bleeding. WOODY SANCHEZ MD May 22, 2018 09:25
[2018-05-22] MEDS: NORMAL SALINE IVP SCH (09:46)
[2018-05-22] MEDS: LEVOTHYROXINE SODIUM IVP SCH (09:46)
[2018-05-22] MEDS: IV NORMAL SALINE 1000ML BAG 1,000 ML IV SCH ×3 (10:25→18:13)
[2018-05-22] MEDS: ONDANSETRON PF 4 MG/2 ML VIAL. IV PRN (11:23)
[2018-05-22 12:12] LABS: HEMOGLOBIN 7.7 g/dL (12.0-15.5)
[2018-05-22] MEDS ORDERED: PROPOFOL 40 ML IV ONE (12:33)
--- NOTE | 2018-05-22 12:34 | PDOC ---
PROGRESS NOTES Chief Complaint Chief Complaint active lower gib 2/2 diverticular bleeding likely acute anemia with gib hypotension with gib dm2 hld hypothyroidism plan: gi consulted, did colonoscopy 05/21, will do EGD AND Colonoscopy again today on protonix drip, can cont for now. not helping much if lower gib HH q6h 1u PRBc 05/21, 05/22 and + bleeding scan at splenic flexure, CTA not comfirmative with active bleeding got sx on board incase bleeding not controlled with gi and IR hold po home meds change synthroid to iv ssi, low dose for now IVF NS 100cc/h, BP actually better after bolus Pt cont having bright red bleeding per rectum overnight, Hb cont dropping, bp low now, will do another 1u PRBC, and EGD, COLOnoscopy as PER GI TOld ICU nurse to keep IR NOTified ICU care cc time 35min History of Present Illness History of Present Illness ROS: no fever, chills, sob or chest pain no abd pain, N/V cont having bright red bleeding many times, Hb 14 in [facility], 10 HERE, NOW 7 bp LOW to 100s now , this am was 130s systolic Vitals Vitals Vital Signs Date Time Temp Pulse Resp B/P (MAP) Pulse Ox O2 Delivery O2 Flow Rate FiO2 05/22/18 11:00 87 16 101/50 (67) 94 Nasal Cannula 2.0 05/22/18 08:00 97.9 97.9 Physical Exam General: Alert, Oriented X3, Cooperative, No acute distress Abdomen: Soft Extremities: No clubbing, No cyanosis Skin: No rashes Labs LABS Laboratory Tests Test 05/21/18 12:45 05/21/18 14:00 05/21/18 16:00 05/21/18 18:33 Hemoglobin 10.2 g/dL (12.0-15.5) 11.1 g/dL (12.0-15.5) Hematocrit 29.8 % (36.0-47.0) 31.9 % (36.0-47.0) Mean Corpuscular Hemoglobin Concent 34 g/dL (31-37) 35 g/dL (31-37) Glucose (Fingerstick) 132 mg/dL (70-99) 123 mg/dL (70-99) Test 05/22/18 01:10 10/7/18 03:30 05/22/18 04:30 05/22/18 08:13 Hemoglobin 9.0 g/dL (12.0-15.5) 9.0 g/dL (12.0-15.5) Hematocrit 25.5 % (36.0-47.0) 26.8 % (36.0-47.0) Mean Corpuscular Hemoglobin Concent 35 g/dL (31-37) 34 g/dL (31-37) Sodium Level 140 mmol/L (136-145) Potassium Level 3.9 mmol/L (3.5-5.1) Chloride Level 106 mmol/L (98-107) Carbon Dioxide Level 28 mmol/L (21-32) Anion Gap 6 (6-14) Blood Urea Nitrogen 18 mg/dL (7-20) Creatinine 0.5 mg/dL (0.6-1.0) Estimated GFR (Cockcroft-Gault) 120.0 BUN/Creatinine Ratio 36 (6-20) Glucose Level 100 mg/dL (70-99) Calcium Level 7.6 mg/dL (8.5-10.1) Total Bilirubin 0.3 mg/dL (0.2-1.0) Aspartate Amino Transf (AST/SGOT) 13 U/L (15-37) Alanine Aminotransferase (ALT/SGPT) 11 U/L (14-59) Alkaline Phosphatase 35 U/L (46-116) Total Protein 4.9 g/dL (6.4-8.2) Albumin 2.1 g/dL (3.4-5.0) Albumin/Globulin Ratio 0.8 (1.0-1.7) White Blood Count 9.5 x10^3/uL (4.0-11.0) Red Blood Count 2.66 x10^6/uL (3.50-5.40) Mean Corpuscular Volume 101 fL (79-100) Mean Corpuscular Hemoglobin 34 pg (25-35) Red Cell Distribution Width 13.9 % (11.5-14.5) Platelet Count 164 x10^3/uL (140-400) Neutrophils (%) (Auto) 65 % (31-73) Lymphocytes (%) (Auto) 24 % (24-48) Monocytes (%) (Auto) 9 % (0-9) Eosinophils (%) (Auto) 2 % (0-3) Basophils (%) (Auto) 1 % (0-3) Neutrophils # (Auto) 6.2 x10^3uL (1.8-7.7) Lymphocytes # (Auto) 2.3 x10^3/uL (1.0-4.8) Monocytes # (Auto) 0.9 x10^3/uL (0.0-1.1) Eosinophils # (Auto) 0.1 x10^3/uL (0.0-0.7) Basophils # (Auto) 0.0 x10^3/uL (0.0-0.2) Glucose (Fingerstick) 97 mg/dL (70-99) Test 05/22/18 11:59 05/22/18 12:00 Glucose (Fingerstick) 110 mg/dL (70-99) Hemoglobin 7.7 g/dL (12.0-15.5) Hematocrit 22.0 % (36.0-47.0) Mean Corpuscular Hemoglobin Concent 35 g/dL (31-37) Comment Review of Relevant I have reviewed the following items cynthia (where applicable) has been applied. Labs Laboratory Tests Test 05/20/18 23:45 05/21/18 03:45 05/21/18 12:45 05/21/18 14:00 Nasal Screen MRSA (PCR) Negative (Negative) White Blood Count 7.9 x10^3/uL (4.0-11.0) Red Blood Count 3.01 x10^6/uL (3.50-5.40) Hemoglobin 10.4 g/dL (12.0-15.5) 10.2 g/dL (12.0-15.5) Hematocrit 30.4 % (36.0-47.0) 29.8 % (36.0-47.0) Mean Corpuscular Volume 101 fL (79-100) Mean Corpuscular Hemoglobin 35 pg (25-35) Mean Corpuscular Hemoglobin Concent 34 g/dL (31-37) 34 g/dL (31-37) Red Cell Distribution Width 13.5 % (11.5-14.5) Platelet Count 191 x10^3/uL (140-400) Neutrophils (%) (Auto) 59 % (31-73) Lymphocytes (%) (Auto) 28 % (24-48) Monocytes (%) (Auto) 11 % (0-9) Eosinophils (%) (Auto) 2 % (0-3) Basophils (%) (Auto) 1 % (0-3) Neutrophils # (Auto) 4.7 x10^3uL (1.8-7.7) Lymphocytes # (Auto) 2.2 x10^3/uL (1.0-4.8) Monocytes # (Auto) 0.8 x10^3/uL (0.0-1.1) Eosinophils # (Auto) 0.1 x10^3/uL (0.0-0.7) Basophils # (Auto) 0.1 x10^3/uL (0.0-0.2) Prothrombin Time 14.3 SEC (11.7-14.0) Prothromb Time International Ratio 1.2 (0.8-1.1) Sodium Level 141 mmol/L (136-145) Potassium Level 4.2 mmol/L (3.5-5.1) Chloride Level 106 mmol/L (98-107) Carbon Dioxide Level 30 mmol/L (21-32) Anion Gap 5 (6-14) Blood Urea Nitrogen 25 mg/dL (7-20) Creatinine 0.6 mg/dL (0.6-1.0) Estimated GFR (Cockcroft-Gault) 97.2 Glucose Level 100 mg/dL (70-99) Calcium Level 7.8 mg/dL (8.5-10.1) Glucose (Fingerstick) 132 mg/dL (70-99) Test 05/21/18 16:00 05/21/18 18:33 05/22/18 01:10 05/22/18 03:30 Hemoglobin 11.1 g/dL (12.0-15.5) 9.0 g/dL (12.0-15.5) Hematocrit 31.9 % (36.0-47.0) 25.5 % (36.0-47.0) Mean Corpuscular Hemoglobin Concent 35 g/dL (31-37) 35 g/dL (31-37) Glucose (Fingerstick) 123 mg/dL (70-99) Sodium Level 140 mmol/L (136-145) Potassium Level 3.9 mmol/L (3.5-5.1) Chloride Level 106 mmol/L (98-107) Carbon Dioxide Level 28 mmol/L (21-32) Anion Gap 6 (6-14) Blood Urea Nitrogen 18 mg/dL (7-20) Creatinine 0.5 mg/dL (0.6-1.0) Estimated GFR (Cockcroft-Gault) 120.0 BUN/Creatinine Ratio 36 (6-20) Glucose Level 100 mg/dL (70-99) Calcium Level 7.6 mg/dL (8.5-10.1) Total Bilirubin 0.3 mg/dL (0.2-1.0) Aspartate Amino Transf (AST/SGOT) 13 U/L (15-37) Alanine Aminotransferase (ALT/SGPT) 11 U/L (14-59) Alkaline Phosphatase 35 U/L (46-116) Total Protein 4.9 g/dL (6.4-8.2) Albumin 2.1 g/dL (3.4-5.0) Albumin/Globulin Ratio 0.8 (1.0-1.7) Test 05/22/18 04:30 05/22/18 08:13 05/22/18 11:59 05/22/18 12:00 White Blood Count 9.5 x10^3/uL (4.0-11.0) Red Blood Count 2.66 x10^6/uL (3.50-5.40) Hemoglobin 9.0 g/dL (12.0-15.5) 7.7 g/dL (12.0-15.5) Hematocrit 26.8 % (36.0-47.0) 22.0 % (36.0-47.0) Mean Corpuscular Volume 101 fL (79-100) Mean Corpuscular Hemoglobin 34 pg (25-35) Mean Corpuscular Hemoglobin Concent 34 g/dL (31-37) 35 g/dL (31-37) Red Cell Distribution Width 13.9 % (11.5-14.5) Platelet Count 164 x10^3/uL (140-400) Neutrophils (%) (Auto) 65 % (31-73) Lymphocytes (%) (Auto) 24 % (24-48) Monocytes (%) (Auto) 9 % (0-9) Eosinophils (%) (Auto) 2 % (0-3) Basophils (%) (Auto) 1 % (0-3) Neutrophils # (Auto) 6.2 x10^3uL (1.8-7.7) Lymphocytes # (Auto) 2.3 x10^3/uL (1.0-4.8) Monocytes # (Auto) 0.9 x10^3/uL (0.0-1.1) Eosinophils # (Auto) 0.1 x10^3/uL (0.0-0.7) Basophils # (Auto) 0.0 x10^3/uL (0.0-0.2) Glucose (Fingerstick) 97 mg/dL (70-99) 110 mg/dL (70-99) Laboratory Tests Test 05/21/18 12:45 05/21/18 14:00 05/21/18 16:00 05/21/18 18:33 Hemoglobin 10.2 g/dL (12.0-15.5) 11.1 g/dL (12.0-15.5) Hematocrit 29.8 % (36.0-47.0) 31.9 % (36.0-47.0) Mean Corpuscular Hemoglobin Concent 34 g/dL (31-37) 35 g/dL (31-37) Glucose (Fingerstick) 132 mg/dL (70-99) 123 mg/dL (70-99) Test 05/22/18 01:10 05/22/18 03:30 05/22/18 04:30 05/22/18 08:13 Hemoglobin 9.0 g/dL (12.0-15.5) 9.0 g/dL (12.0-15.5) Hematocrit 25.5 % (36.0-47.0) 26.8 % (36.0-47.0) Mean Corpuscular Hemoglobin Concent 35 g/dL (31-37) 34 g/dL (31-37) Sodium Level 140 mmol/L (136-145) Potassium Level 3.9 mmol/L (3.5-5.1) Chloride Level 106 mmol/L (98-107) Carbon Dioxide Level 28 mmol/L (21-32) Anion Gap 6 (6-14) Blood Urea Nitrogen 18 mg/dL (7-20) Creatinine 0.5 mg/dL (0.6-1.0) Estimated GFR (Cockcroft-Gault) 120.0 BUN/Creatinine Ratio 36 (6-20) Glucose Level 100 mg/dL (70-99) Calcium Level 7.6 mg/dL (8.5-10.1) Total Bilirubin 0.3 mg/dL (0.2-1.0) Aspartate Amino Transf (AST/SGOT) 13 U/L (15-37) Alanine Aminotransferase (ALT/SGPT) 11 U/L (14-59) Alkaline Phosphatase 35 U/L (46-116) Total Protein 4.9 g/dL (6.4-8.2) Albumin 2.1 g/dL (3.4-5.0) Albumin/Globulin Ratio 0.8 (1.0-1.7) White Blood Count 9.5 x10^3/uL (4.0-11.0) Red Blood Count 2.66 x10^6/uL (3.50-5.40) Mean Corpuscular Volume 101 fL (79-100) Mean Corpuscular Hemoglobin 34 pg (25-35) Red Cell Distribution Width 13.9 % (11.5-14.5) Platelet Count 164 x10^3/uL (140-400) Neutrophils (%) (Auto) 65 % (31-73) Lymphocytes (%) (Auto) 24 % (24-48) Monocytes (%) (Auto) 9 % (0-9) Eosinophils (%) (Auto) 2 % (0-3) Basophils (%) (Auto) 1 % (0-3) Neutrophils # (Auto) 6.2 x10^3uL (1.8-7.7) Lymphocytes # (Auto) 2.3 x10^3/uL (1.0-4.8) Monocytes # (Auto) 0.9 x10^3/uL (0.0-1.1) Eosinophils # (Auto) 0.1 x10^3/uL (0.0-0.7) Basophils # (Auto) 0.0 x10^3/uL (0.0-0.2) Glucose (Fingerstick) 97 mg/dL (70-99) Test 05/22/18 11:59 05/22/18 12:00 Glucose (Fingerstick) 110 mg/dL (70-99) Hemoglobin 7.7 g/dL (12.0-15.5) Hematocrit 22.0 % (36.0-47.0) Mean Corpuscular Hemoglobin Concent 35 g/dL (31-37) Medications Current Medications Sodium Chloride 1,000 ml @ 100 mls/hr Q10H IV Last administered on 05/22/18at 10:25; Start 05/20/18 at 21:30 Pantoprazole Sodium (PROTONIX VIAL for IV PUSH) 40 mg DAILYAC IVP ; Start at 07:30; Stop 05/21/18 at 13:41; Status DC Ondansetron HCl (Zofran) 4 mg PRN Q6HRS PRN IV NAUSEA/VOMITING Last administered on 05/22/18at 11:23; Start 05/20/18 at 21:30 Acetaminophen (Tylenol) 650 mg PRN Q6HRS PRN PO MILD PAIN; Start 05/20/18 at 21 :30 Morphine Sulfate (Morphine Sulfate) 2 mg PRN Q2HR PRN IV PAIN; Start 05/20/18 at 21:30 Pantoprazole Sodium 80 mg/ Sodium Chloride 100 ml @ 10 mls/hr Q10H IV Last administered on 05/22/18at 08:14; Start 05/20/18 at 22:00 Pantoprazole Sodium (PROTONIX VIAL for IV PUSH) 80 mg 1X ONCE IVP Last administered on 05/20/18at 22:27; Start 05/20/18 at 22:00; Stop 05/20/18 at 22:01 ; Status DC Heparin Sodium (Porcine) (HEPARIN for NUC MED) 100 unit 1X ONCE IV Last administered on 05/21/18at 10:30; Start 05/21/18 at 10:30; Stop 05/21/18 at 10:31 ; Status DC Sodium Chloride 1,000 ml @ 1,000 mls/hr 1X ONCE IV Last administered on at 10:38; Start 05/21/18 at 10:45; Stop 05/21/18 at 11:44; Status DC Levothyroxine Sodium 25 mcg/ Sodium Chloride 5 ml @ 100 mls/hr DAILY IVP Last administered on 05/22/18at 09:46; Start 05/21/18 at 13:00 Insulin Human Lispro (HumaLOG) 0-5 UNITS TIDWMEALS SQ ; Start 05/21/18 at 17:00 Dextrose (Dextrose 50%-Water Syringe) 12.5 gm PRN Q15MIN PRN IV SEE COMMENTS; Start 05/21/18 at 13:00 Sodium Monofluorophosphate (Fleet Adult) 133 ml 1X ONCE MS Last administered on 05/21/18at 13:58; Start 05/21/18 at 13:15; Stop 05/21/18 at 13:20; Status DC Sodium Monofluorophosphate (Fleet Adult) 133 ml 1X ONCE MS Last administered on 05/21/18at 13:55; Start 05/21/18 at 13:15; Stop 05/21/18 at 13:26; Status DC Midazolam HCl (Versed) 5 mg STK-MED ONCE .ROUTE ; Start 05/21/18 at 14:11; Stop 05/21/18 at 14:12; Status DC Fentanyl Citrate (Fentanyl 2ml Vial) 100 mcg STK-MED ONCE .ROUTE ; Start at 14:12; Stop 05/21/18 at 14:13; Status DC Epinephrine HCl (Adrenalin) 1 mg STK-MED ONCE .ROUTE ; Start 05/21/18 at 14:46; Stop 05/21/18 at 14:47; Status DC Epinephrine HCl (EPINEPHrine SYRINGE) 1 mg STK-MED ONCE .ROUTE ; Start 05/21/18 at 14:47; Stop 05/21/18 at 14:48; Status DC Fentanyl Citrate (Fentanyl 2ml Vial) 100 mcg STK-MED ONCE IV Last administered on 05/21/18at 14:50; Start 05/21/18 at 14:50; Stop 05/21/18 at 15:55; Status DC Midazolam HCl (Versed) 5 mg STK-MED ONCE IV Last administered on 05/21/18at 14: 51; Start 05/21/18 at 14:51; Stop 05/21/18 at 15:55; Status DC Midazolam HCl (Versed) 5 mg STK-MED ONCE IV Last administered on 05/21/18at 14: 52; Start 05/21/18 at 14:52; Stop 05/21/18 at 15:55; Status DC Fentanyl Citrate (Fentanyl 2ml Vial) 100 mcg STK-MED ONCE IV Last administered on 05/21/18at 14:54; Start 05/21/18 at 14:54; Stop 05/21/18 at 15:55; Status DC Midazolam HCl (Versed) 5 mg STK-MED ONCE IV Last administered on 05/21/18at 14: 56; Start 05/21/18 at 14:56; Stop 05/21/18 at 15:55; Status DC Midazolam HCl (Versed) 5 mg STK-MED ONCE IV Last administered on 05/21/18at 15: 02; Start 05/21/18 at 15:02; Stop 05/21/18 at 15:55; Status DC Iohexol (Omnipaque 300 Mg/ml) 90 ml 1X ONCE IV ; Start 05/21/18 at 17:15; Stop 05/21/18 at 17:17; Status DC Sodium Cl/Sod Bicarb/Potass Cl/ PEG (Golytely) 4,000 ml 1X ONCE PO Last administered on 05/21/18at 19:33; Start 05/21/18 at 18:30; Stop 05/21/18 at 18:31 ; Status DC Active Scripts Active Reported Metformin Hcl 1,000 Mg Tablet 1,000 Mg PO BID Glyburide 2.5 Mg Tablet 1 Tab PO DAILY Vitamin D (Cholecalciferol (Vitamin D3)) 1,000 Unit Capsule 1,500 Unit PO DAILY Famotidine 40 Mg Tablet 40 Mg PO DAILY Levothyroxine Sodium 50 Mcg Tablet 50 Mcg PO DAILYAC Estrace (Estradiol) 2 Mg Tablet 2 Mg PO DAILY Biotin 10,000 Mcg Capsule 10,000 Mcg PO DAILY Sugey-C 1,000 Mg Tablet (Ascorbate Calcium/Bioflavonoid) 1 Each Tablet 1 Each PO DAILY Vitals/I & O Vital Sign - Last 24 Hours 05/21/18 05/21/18 05/21/18 05/21/18 13:00 13:34 13:49 14:00 Temp 97.7 98.1 97.7 98.1 Pulse 74 78 81 78 Resp 16 18 B/P (MAP) 111/45 (67) 111/45 132/50 132/50 (77) Pulse Ox 92 92 O2 Delivery Room Air Nasal Cannula O2 Flow Rate 2.0 05/21/18 05/21/18 05/21/18 05/21/18 14:49 14:50 14:55 15:00 Temp 98.5 98.5 Pulse 80 72 73 76 Resp 16 16 16 B/P (MAP) 160/53 160/53 (88) Pulse Ox 96 96 92 O2 Delivery Simple Mask Simple Mask Nasal Cannula O2 Flow Rate 10 10 2.0 05/21/18 05/21/18 05/21/18 05/21/18 15:00 15:05 15:08 15:10 Temp 97.0 98.1 97.0 98.1 Pulse 70 75 74 74 Resp 16 16 16 18 B/P (MAP) 107/51 85/45 Pulse Ox 96 98 98 O2 Delivery Simple Mask Simple Mask Simple Mask O2 Flow Rate 10 10 10 05/21/18 05/21/18 05/21/18 05/21/18 15:13 15:23 15:37 16:00 Temp 97.5 97.5 Pulse 75 84 82 70 Resp 18 16 16 B/P (MAP) 108/46 105/41 113/43 105/53 (70) Pulse Ox 99 93 93 97 O2 Delivery Nasal Cannula Nasal Cannula Nasal Cannula Nasal Cannula Simple Mask O2 Flow Rate 10 3 3 2.0 05/21/18 05/21/18 05/21/18 05/21/18 16:00 17:00 18:00 19:00 Temp 98.0 98.0 Pulse 74 64 71 Resp 18 16 16 B/P (MAP) 127/42 (70) 119/54 (75) 138/73 (94) Pulse Ox 97 97 96 O2 Delivery Room Air Nasal Cannula Nasal Cannula Nasal Cannula O2 Flow Rate 2.0 2.0 2.0 2.0 05/21/18 05/21/18 05/21/18 05/21/18 20:00 20:00 21:00 22:00 Pulse 75 78 78 Resp 18 16 16 B/P (MAP) 123/57 (79) 145/57 (86) 125/63 (83) Pulse Ox 97 98 97 O2 Delivery Nasal Cannula Room Air Nasal Cannula Nasal Cannula O2 Flow Rate 2.0 2.0 2.0 2.0 05/21/18 05/22/18 05/22/18 05/22/18 23:00 00:00 00:00 00:30 Temp 97.5 97.5 Pulse 76 75 Resp 16 18 B/P (MAP) 137/52 (80) 123/57 (79) 91/51 (64) Pulse Ox 98 98 O2 Delivery Nasal Cannula Nasal Cannula Room Air O2 Flow Rate 2.0 2.0 2.0 05/22/18 05/22/18 05/22/18 05/22/18 01:00 02:00 03:00 04:00 Temp 97.6 97.6 Pulse 78 66 81 80 Resp 16 17 16 18 B/P (MAP) 111/55 (73) 114/49 (70) 138/61 (86) 114/32 (59) Pulse Ox 98 99 98 98 O2 Delivery Nasal Cannula Nasal Cannula Nasal Cannula Nasal Cannula O2 Flow Rate 2.0 2.0 2.0 2.0 05/22/18 05/22/18 05/22/18 05/22/18 04:00 05:00 06:00 07:00 Pulse 77 78 75 Resp 16 16 16 B/P (MAP) 132/55 (80) 110/54 (72) 104/51 (68) Pulse Ox 96 98 96 O2 Delivery Room Air Nasal Cannula Nasal Cannula Nasal Cannula O2 Flow Rate 2.0 2.0 2.0 2.0 05/22/18 05/22/18 05/22/18 05/22/18 08:00 08:00 09:00 10:00 Temp 97.9 97.9 Pulse 82 86 81 Resp 16 16 18 B/P (MAP) 113/49 (70) 148/59 (88) 128/47 (74) Pulse Ox 95 95 96 O2 Delivery Nasal Cannula Nasal Cannula Nasal Cannula Nasal Cannula O2 Flow Rate 2.0 2.0 2.0 2.0 05/22/18 11:00 Pulse 87 Resp 16 B/P (MAP) 101/50 (67) Pulse Ox 94 O2 Delivery Nasal Cannula O2 Flow Rate 2.0 Intake and Output 05/21/18 05/21/18 05/22/18 15:00 23:00 07:00 Intake Total 1552 ml 1875 ml 2550 ml Output Total 1000 ml 1000 ml 1200 ml Balance 552 ml 875 ml 1350 ml DARELL GUAMAN MD May 22, 2018 12:34
--- NOTE | 2018-05-22 14:05 | PDOC ---
Subjective: Subjective: Hgb down to 7 today. More bleeding. Objective: Vital Signs: Vital Signs Date Time Temp Pulse Resp B/P (MAP) Pulse Ox O2 Delivery O2 Flow Rate FiO2 05/22/18 13:26 98.4 88 16 103/48 98.4 05/22/18 13:00 95 Nasal Cannula 2.0 Labs: Laboratory Tests Test 05/21/18 14:00 05/21/18 18:33 05/22/18 08:13 05/22/18 11:59 Glucose (Fingerstick) 132 mg/dL (70-99) 123 mg/dL (70-99) 97 mg/dL (70-99) 110 mg/dL (70-99) PE: GEN: NAD HEENT: Atraumatic, PERRLA LUNGS: CTAB HEART: RRR, no murmurs ABD: NABS, S/ND/NT, no masses EXTREMITY: No edema SKIN: No rashes, no jaundice NEURO/PSYCH: A & O 3 A/P: Full notes dictated [id number] EGD Findings: 1) normal esophagus 2) Normal stomach 3) Normal small bowel Plan: 1) Unrevealing EGD 2) colonoscopy today Colonoscopy Findings: 1) Diverticulosis 2) Internal hemorrhoids 3) Blood in entire colon 4) Red blood in terminal ileum to 30 cm Plan: 1) D/w IR. They will attempt intervention with 2) Surgery updated HAVEN BUSH MD May 22, 2018 14:05
--- NOTE | 2018-05-22 14:39 | OP ---
DATE OF SURGERY: 05/22/2018 PROCEDURES: Upper endoscopy report and Colonoscopy report REQUESTING PHYSICIAN: Dr. Peters. PRIMARY CARE PHYSICIAN: Dr. Raman Plunkett. REASON FOR PROCEDURE: GI bleeding. HISTORY OF PRESENT ILLNESS: This is a 78-year-old female who presented with a lower GI bleed. She initially came in with a hemoglobin of 11, then found in 7 range. She has received packed red blood cells and has been on a PPI drip. She was previously taking Aleve. She had a bleeding scan yesterday that demonstrated active bleeding at the splenic flexure. I attempted an unprepped colonoscopy yesterday and was unable to locate the bleeding. Today, she is to undergo upper endoscopy and colonoscopy after bowel prep to attempt to localize and stop the bleeding. The risks and benefits of the procedure including bleeding, perforation, non-diagnosis and sedation were explained to her and her family and they agreed to proceed. MEDICATIONS: Propofol per Anesthesia. EGD DESCRIPTION OF PROCEDURE: The upper Olympus endoscope was introduced in the mouth and passed through upper, middle, and lower esophagus. There were no abnormalities. The scope then passed through fundus, body and antrum of the stomach. No abnormalities were found. Retroflexion was performed. There was no hiatal hernia. The scope was then passed through the body and antrum of the stomach. No mucosal abnormalities were found. The scope was passed through the pylorus and into the duodenal bulb and first and second portion of the duodenum. No abnormalities were found. There was no evidence of bleeding. The scope was completely withdrawn. The patient suffered no complication. PLAN: 1. Unrevealing EGD. 2. Colonoscopy today. COLONOSCOPY REPORT DESCRIPTION OF PROCEDURE: The lower Olympus pediatric colonoscope was introduced in the rectum and passed through the sigmoid colon, descending colon, splenic flexure, transverse colon, hepatic flexure, ascending colon and the cecum was identified with the presence of the ileocecal valve and appendiceal orifice. Blood was found throughout the entire colon. The terminal ileum was intubated, approximately 30 cm. Bright blood was found. 360-degree viewing was performed upon withdrawal and diverticulosis was found. There was no evidence of active bleeding. Retroflexion was performed in the rectum, and internal hemorrhoids were noted. The scope was completely withdrawn. The patient suffered no complications. FINDINGS: 1. Diverticulosis. 2. Internal hemorrhoids. 3. Blood in the entire colon. 4. Red blood in the terminal ileum to 30 cm. PLAN: 1. I have discussed these findings with IR. They will attempt mesenteric angiography today. 2. I have also discussed these findings with Dr. Feliciano, so that he is aware. Thank you for allowing me to participate in the care of this patient. HAVEN BUSH MD DR: BEV/boby JOB#: [id number] / [id number] ecc RAMAN PLUNKETT CHUNMEI MD
[2018-05-22] MEDS ORDERED: IOHEXOL 240 MG/ML 50ML VIAL. ONE (15:01)
[2018-05-22] MEDS ORDERED: IOHEXOL 300 MG/ML 100ML VIAL. ONE ×2 (15:01→16:51)
[2018-05-22] MEDS ORDERED: LIDOCAINE WITH 8.4% SOD BICARB 3 ML DISP.SYRIN. ONE (15:01)
[2018-05-22] MEDS ORDERED: MIDAZOLAM HCL/PF 2 MG/2 ML VIAL. ONE ×2 (15:35→16:45)
[2018-05-22] MEDS ORDERED: fentaNYL PF VIAL 100 MCG/2 ML VIAL ONE ×2 (15:36→16:46)
[2018-05-22] MEDS ORDERED: IOHEXOL 240 MG/ML 50ML VIAL. IART ONE (16:45)
[2018-05-22] MEDS ORDERED: IOHEXOL 300 MG/ML 100ML VIAL. IART ONE (16:45)
[2018-05-22] MEDS ORDERED: LIDOCAINE WITH 8.4% SOD BICARB 3 ML DISP.SYRIN. IJ ONE (16:45)
[2018-05-22] MEDS ORDERED: fentaNYL PF VIAL 100 MCG/2 ML VIAL IV ONE (16:45)
[2018-05-22] MEDS ORDERED: MIDAZOLAM HCL/PF 2 MG/2 ML VIAL. IV ONE (16:45)
[2018-05-22] MEDS ORDERED: CONTRAST GIVEN. MC PRN (17:00)
--- NOTE | 2018-05-22 17:41 | PDOC ---
Exam [employer] brandie Transportation Department Head Transportation Department Head n/a Pre-Procedure Diagnosis Pre-Procedure Diagnosis Small Intestine Bleeding Post-Procedure Diagnosis Post-Procedure Diagnosis Descending Colon Hemorrhage Procedure Performed Procedure Performed 3 vessel Angiography with superselective SMA x 4, KEDAR x 1; Coil Embolization left colic branches marginal artery descending colon Type of Anesthesia Type of Anesthesia moderate sedation Estimated Blood Loss EBL: trace Specimens Specimans n/a Condition of Patient Condition of Patient stable Disposition Disposition ICU JOSE ROBERTO TSAI MD May 22, 2018 17:41
[2018-05-22 18:17] LABS: HEMOGLOBIN 9.4 g/dL (12.0-15.5)
[2018-05-23] VITALS (15 sets, daily range): BP systolic 90–147; BP diastolic 38–64
[2018-05-23 00:49] LABS: HEMATOCRIT 29.3 % (36.0-47.0)
[2018-05-23] MEDS: PANTOPRAZOLE SODIUM IV DRIP 80 MG in IV NORMAL SALINE 100ML 100 ML IV SCH ×2 (03:07→09:29)
[2018-05-23] MEDS: IV NORMAL SALINE 1000ML BAG 1,000 ML IV SCH (03:07)
[2018-05-23 05:18] LABS: BASO % 0 % (0-3); EOS % 0 % (0-3); HEMATOCRIT 26.1 % (36.0-47.0); HEMOGLOBIN 9.1 g/dL (12.0-15.5); LYMPH # 1.7 x10^3/uL (1.0-4.8); LYMPH % 17 % (24-48); MEAN CORPUSCULAR HEMOGLOBIN 33 pg (25-35); MEAN CORPUSCULAR HGB CONC 35 g/dL (31-37); MONO # 1.1 x10^3/uL (0.0-1.1); MONO % 11 % (0-9); NEUT # 7.6 x10^3uL (1.8-7.7); NEUT % 73 % (31-73); PLATELET COUNT 110 x10^3/uL (140-400); RED BLOOD COUNT 2.75 x10^6/uL (3.50-5.40); RED CELL DISTRIBUTION WIDTH 16.4 % (11.5-14.5); WHITE BLOOD COUNT 10.5 x10^3/uL (4.0-11.0)
[2018-05-23 05:28] LABS: MEAN CORPUSCULAR VOLUME 95 fL (79-100)
[2018-05-23 05:34] LABS: CALCIUM 6.8 mg/dL (8.5-10.1); CREATININE 0.6 mg/dL (0.6-1.0); GFR 97.2; POTASSIUM 3.9 mmol/L (3.5-5.1)
[2018-05-23] MEDS: INSULIN LISPRO 300 UNITS/3 ML INSULN.PEN. SQ SCH ×3 (08:00→17:00)
[2018-05-23] MEDS: LEVOTHYROXINE SODIUM IVP SCH (09:29)
[2018-05-23] MEDS: NORMAL SALINE IVP SCH (09:29)
--- NOTE | 2018-05-23 09:35 | PDOC ---
REECE RUSSELL [employer] APPRENTICE 05/23/18 0935: SURGICAL PROGRESS NOTE Subjective no pain no further bleeding after coil last night very thirsty Vital Signs Vital Signs Date Time Temp Pulse Resp B/P (MAP) Pulse Ox O2 Delivery O2 Flow Rate FiO2 05/23/18 06:00 83 10 106/48 (67) 96 Nasal Cannula 4.0 05/23/18 04:00 97.9 97.9 I&O Intake and Output 05/23/18 07:00 Intake Total 6713.8 ml Output Total 1050 ml Balance 5663.8 ml IV Total 3750.8 ml Blood Product IV Normal Saline Flush 2963 ml Urine/Stool Mix 1050 ml # Voids 5 General: Alert, Oriented X3, Cooperative, No acute distress Abdomen: Soft, No tenderness Labs Laboratory Tests Test 05/21/18 12:45 05/21/18 14:00 05/21/18 16:00 05/21/18 18:33 Hemoglobin 10.2 g/dL (12.0-15.5) 11.1 g/dL (12.0-15.5) Hematocrit 29.8 % (36.0-47.0) 31.9 % (36.0-47.0) Mean Corpuscular Hemoglobin Concent 34 g/dL (31-37) 35 g/dL (31-37) Glucose (Fingerstick) 132 mg/dL (70-99) 123 mg/dL (70-99) Test 05/22/18 01:10 05/22/18 03:30 05/22/18 04:30 05/22/18 08:13 Hemoglobin 9.0 g/dL (12.0-15.5) 9.0 g/dL (12.0-15.5) Hematocrit 25.5 % (36.0-47.0) 26.8 % (36.0-47.0) Mean Corpuscular Hemoglobin Concent 35 g/dL (31-37) 34 g/dL (31-37) Sodium Level 140 mmol/L (136-145) Potassium Level 3.9 mmol/L (3.5-5.1) Chloride Level 106 mmol/L (98-107) Carbon Dioxide Level 28 mmol/L (21-32) Anion Gap 6 (6-14) Blood Urea Nitrogen 18 mg/dL (7-20) Creatinine 0.5 mg/dL (0.6-1.0) Estimated GFR (Cockcroft-Gault) 120.0 BUN/Creatinine Ratio 36 (6-20) Glucose Level 100 mg/dL (70-99) Calcium Level 7.6 mg/dL (8.5-10.1) Total Bilirubin 0.3 mg/dL (0.2-1.0) Aspartate Amino Transf (AST/SGOT) 13 U/L (15-37) Alanine Aminotransferase (ALT/SGPT) 11 U/L (14-59) Alkaline Phosphatase 35 U/L (46-116) Total Protein 4.9 g/dL (6.4-8.2) Albumin 2.1 g/dL (3.4-5.0) Albumin/Globulin Ratio 0.8 (1.0-1.7) White Blood Count 9.5 x10^3/uL (4.0-11.0) Red Blood Count 2.66 x10^6/uL (3.50-5.40) Mean Corpuscular Volume 101 fL (79-100) Mean Corpuscular Hemoglobin 34 pg (25-35) Red Cell Distribution Width 13.9 % (11.5-14.5) Platelet Count 164 x10^3/uL (140-400) Neutrophils (%) (Auto) 65 % (31-73) Lymphocytes (%) (Auto) 24 % (24-48) Monocytes (%) (Auto) 9 % (0-9) Eosinophils (%) (Auto) 2 % (0-3) Basophils (%) (Auto) 1 % (0-3) Neutrophils # (Auto) 6.2 x10^3uL (1.8-7.7) Lymphocytes # (Auto) 2.3 x10^3/uL (1.0-4.8) Monocytes # (Auto) 0.9 x10^3/uL (0.0-1.1) Eosinophils # (Auto) 0.1 x10^3/uL (0.0-0.7) Basophils # (Auto) 0.0 x10^3/uL (0.0-0.2) Glucose (Fingerstick) 97 mg/dL (70-99) Test 05/22/18 11:59 05/22/18 12:00 05/22/18 14:54 05/22/18 18:05 Glucose (Fingerstick) 110 mg/dL (70-99) 108 mg/dL (70-99) Hemoglobin 7.7 g/dL (12.0-15.5) 9.4 g/dL (12.0-15.5) Hematocrit 22.0 % (36.0-47.0) 28.0 % (36.0-47.0) Mean Corpuscular Hemoglobin Concent 35 g/dL (31-37) 34 g/dL (31-37) Test 05/22/18 18:11 05/23/18 00:40 05/23/18 04:45 Glucose (Fingerstick) 137 mg/dL (70-99) Hemoglobin 10.0 g/dL (12.0-15.5) 9.1 g/dL (12.0-15.5) Hematocrit 29.3 % (36.0-47.0) 26.1 % (36.0-47.0) Mean Corpuscular Hemoglobin Concent 34 g/dL (31-37) 35 g/dL (31-37) White Blood Count 10.5 x10^3/uL (4.0-11.0) Red Blood Count 2.75 x10^6/uL (3.50-5.40) Mean Corpuscular Volume 95 fL (79-100) Mean Corpuscular Hemoglobin 33 pg (25-35) Red Cell Distribution Width 16.4 % (11.5-14.5) Platelet Count 110 x10^3/uL (140-400) Neutrophils (%) (Auto) 73 % (31-73) Lymphocytes (%) (Auto) 17 % (24-48) Monocytes (%) (Auto) 11 % (0-9) Eosinophils (%) (Auto) 0 % (0-3) Basophils (%) (Auto) 0 % (0-3) Neutrophils # (Auto) 7.6 x10^3uL (1.8-7.7) Lymphocytes # (Auto) 1.7 x10^3/uL (1.0-4.8) Monocytes # (Auto) 1.1 x10^3/uL (0.0-1.1) Eosinophils # (Auto) 0.0 x10^3/uL (0.0-0.7) Basophils # (Auto) 0.0 x10^3/uL (0.0-0.2) Sodium Level 144 mmol/L (136-145) Potassium Level 3.9 mmol/L (3.5-5.1) Chloride Level 110 mmol/L (98-107) Carbon Dioxide Level 27 mmol/L (21-32) Anion Gap 7 (6-14) Blood Urea Nitrogen 12 mg/dL (7-20) Creatinine 0.6 mg/dL (0.6-1.0) Estimated GFR (Cockcroft-Gault) 97.2 Glucose Level 122 mg/dL (70-99) Calcium Level 6.8 mg/dL (8.5-10.1) Laboratory Tests Test 05/22/18 11:59 05/22/18 12:00 05/22/18 14:54 05/22/18 18:05 Glucose (Fingerstick) 110 mg/dL (70-99) 108 mg/dL (70-99) Hemoglobin 7.7 g/dL (12.0-15.5) 9.4 g/dL (12.0-15.5) Hematocrit 22.0 % (36.0-47.0) 28.0 % (36.0-47.0) Mean Corpuscular Hemoglobin Concent 35 g/dL (31-37) 34 g/dL (31-37) Test 05/22/18 18:11 05/23/18 00:40 05/23/18 04:45 Glucose (Fingerstick) 137 mg/dL (70-99) Hemoglobin 10.0 g/dL (12.0-15.5) 9.1 g/dL (12.0-15.5) Hematocrit 29.3 % (36.0-47.0) 26.1 % (36.0-47.0) Mean Corpuscular Hemoglobin Concent 34 g/dL (31-37) 35 g/dL (31-37) White Blood Count 10.5 x10^3/uL (4.0-11.0) Red Blood Count 2.75 x10^6/uL (3.50-5.40) Mean Corpuscular Volume 95 fL (79-100) Mean Corpuscular Hemoglobin 33 pg (25-35) Red Cell Distribution Width 16.4 % (11.5-14.5) Platelet Count 110 x10^3/uL (140-400) Neutrophils (%) (Auto) 73 % (31-73) Lymphocytes (%) (Auto) 17 % (24-48) Monocytes (%) (Auto) 11 % (0-9) Eosinophils (%) (Auto) 0 % (0-3) Basophils (%) (Auto) 0 % (0-3) Neutrophils # (Auto) 7.6 x10^3uL (1.8-7.7) Lymphocytes # (Auto) 1.7 x10^3/uL (1.0-4.8) Monocytes # (Auto) 1.1 x10^3/uL (0.0-1.1) Eosinophils # (Auto) 0.0 x10^3/uL (0.0-0.7) Basophils # (Auto) 0.0 x10^3/uL (0.0-0.2) Sodium Level 144 mmol/L (136-145) Potassium Level 3.9 mmol/L (3.5-5.1) Chloride Level 110 mmol/L (98-107) Carbon Dioxide Level 27 mmol/L (21-32) Anion Gap 7 (6-14) Blood Urea Nitrogen 12 mg/dL (7-20) Creatinine 0.6 mg/dL (0.6-1.0) Estimated GFR (Cockcroft-Gault) 97.2 Glucose Level 122 mg/dL (70-99) Calcium Level 6.8 mg/dL (8.5-10.1) Problem List gi bleed coil embolization no further bleeding ok with clears if ok with GI WOODY SANCHEZ MD 05/23/18 1221: SURGICAL PROGRESS NOTE Assessment/Plan Reviewed, agree with above REECE RUSSELL [employer] APPRENTICE May 23, 2018 09:35 WOODY SANCHEZ MD May 23, 2018 12:21
--- NOTE | 2018-05-23 10:20 | PDOC ---
Subjective: Subjective: "I've had no symptoms." Wants to be sure I know she had a colonoscopy and doesn't need another. Objective: Objective: No bleeding per RN, asks about clear liquid trial and transfer out of ICU. Vital Signs: Vital Signs Date Time Temp Pulse Resp B/P (MAP) Pulse Ox O2 Delivery O2 Flow Rate FiO2 05/23/18 09:00 87 16 116/48 (70) 96 Nasal Cannula 4.0 05/23/18 07:00 98.9 98.9 Labs: Laboratory Tests Test 05/22/18 11:59 05/22/18 12:00 05/22/18 14:54 05/22/18 18:05 Glucose (Fingerstick) 110 mg/dL 108 mg/dL Hemoglobin 7.7 g/dL 9.4 g/dL Hematocrit 22.0 % 28.0 % Mean Corpuscular Hemoglobin Concent 35 g/dL 34 g/dL Test 05/22/18 18:11 05/23/18 00:40 05/23/18 04:45 Glucose (Fingerstick) 137 mg/dL Hemoglobin 10.0 g/dL 9.1 g/dL Hematocrit 29.3 % 26.1 % Mean Corpuscular Hemoglobin Concent 34 g/dL 35 g/dL White Blood Count 10.5 x10^3/uL Red Blood Count 2.75 x10^6/uL Mean Corpuscular Volume 95 fL Mean Corpuscular Hemoglobin 33 pg Red Cell Distribution Width 16.4 % Platelet Count 110 x10^3/uL Neutrophils (%) (Auto) 73 % Lymphocytes (%) (Auto) 17 % Monocytes (%) (Auto) 11 % Eosinophils (%) (Auto) 0 % Basophils (%) (Auto) 0 % Neutrophils # (Auto) 7.6 x10^3uL Lymphocytes # (Auto) 1.7 x10^3/uL Monocytes # (Auto) 1.1 x10^3/uL Eosinophils # (Auto) 0.0 x10^3/uL Basophils # (Auto) 0.0 x10^3/uL Sodium Level 144 mmol/L Potassium Level 3.9 mmol/L Chloride Level 110 mmol/L Carbon Dioxide Level 27 mmol/L Anion Gap 7 Blood Urea Nitrogen 12 mg/dL Creatinine 0.6 mg/dL Estimated GFR (Cockcroft-Gault) 97.2 Glucose Level 122 mg/dL Calcium Level 6.8 mg/dL Imaging: GI Bleed 05/21 IMPRESSION: 1. Active bleeding in the region of the splenic flexure of the colon. Colonoscopy 05/21 Blood and stool in the colon, precluding visualization. Diverticulosis. No single active site of bleeding found. CTA A/P 05/21 IMPRESSION: 1. There is high density material within the splenic flexure and transverse colon on the precontrast images which remains relatively static on the postcontrast series. This could represent some intraluminal hemorrhage, although there is no definite active source identified on the CT exam. Based on the prior nuclear medicine study active hemorrhage was present and this could be intermittent. Correlate clinically. 2. Diverticulosis. 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 EGD and colonoscopy 05/22 Unrevealing EGD. Diverticulosis. Internal hemorrhoids. Blood in the entire colon. IR note 05/22 - 3 vessel Angiography with superselective SMA x 4, KEDAR x 1; Coil Embolization left colic branches marginal artery descending colon PE: GEN: NAD, up to chair LUNGS: NC HEART: RRR ABD: S/ND/NT NEURO/PSYCH: A & O 3 A/P: GI bleeding - resolved s/p IR coil -- Reviewed w/ Dr. Rosario - okay to try APOLONIA hughes, transfer our of ICU. JULIO CESAR RENTERIA May 23, 2018 10:20
[2018-05-23] MEDS ORDERED: ACETAMINOPHEN 500 MG TABLET PO PRN (11:45)
--- NOTE | 2018-05-23 11:59 | PDOC ---
PROGRESS NOTES Chief Complaint Chief Complaint active lower gib 2/2 diverticular bleeding likely s/p coiling by iR acute anemia with gib hypotension with gib resolved dm2 controlled hld hypothyroidism History of Present Illness History of Present Illness Status post coiling by IR yesterday Wednesday and so far no major bleeding, some bright red blood per rectum residual but nothing major Vital signs holding No abdominal pain Started on clear liquid by GI Plan okay to transfer out of ICU Current IVF to consume DC HHV-6, H&H tomorrow If no more rebleeding possible discharge tomorrow ROS: no fever, chills, sob or chest pain Vitals Vitals Vital Signs Date Time Temp Pulse Resp B/P (MAP) Pulse Ox O2 Delivery O2 Flow Rate FiO2 05/23/18 09:00 87 16 116/48 (70) 96 Nasal Cannula 4.0 05/23/18 07:00 98.9 98.9 Physical Exam General: Alert, Oriented X3, Cooperative, No acute distress Heart: Regular rate, Normal S1, Normal S2 Lungs: Clear, Wheezing Abdomen: Normal bowel sounds, Soft, No tenderness Extremities: No clubbing, No cyanosis Skin: No rashes, No breakdown Labs LABS Laboratory Tests Test 05/22/18 11:59 05/22/18 12:00 05/22/18 14:54 05/22/18 18:05 Glucose (Fingerstick) 110 mg/dL (70-99) 108 mg/dL (70-99) Hemoglobin 7.7 g/dL (12.0-15.5) 9.4 g/dL (12.0-15.5) Hematocrit 22.0 % (36.0-47.0) 28.0 % (36.0-47.0) Mean Corpuscular Hemoglobin Concent 35 g/dL (31-37) 34 g/dL (31-37) Test 05/22/18 18:11 05/23/18 00:40 05/23/18 04:45 Glucose (Fingerstick) 137 mg/dL (70-99) Hemoglobin 10.0 g/dL (12.0-15.5) 9.1 g/dL (12.0-15.5) Hematocrit 29.3 % (36.0-47.0) 26.1 % (36.0-47.0) Mean Corpuscular Hemoglobin Concent 34 g/dL (31-37) 35 g/dL (31-37) White Blood Count 10.5 x10^3/uL (4.0-11.0) Red Blood Count 2.75 x10^6/uL (3.50-5.40) Mean Corpuscular Volume 95 fL (79-100) Mean Corpuscular Hemoglobin 33 pg (25-35) Red Cell Distribution Width 16.4 % (11.5-14.5) Platelet Count 110 x10^3/uL (140-400) Neutrophils (%) (Auto) 73 % (31-73) Lymphocytes (%) (Auto) 17 % (24-48) Monocytes (%) (Auto) 11 % (0-9) Eosinophils (%) (Auto) 0 % (0-3) Basophils (%) (Auto) 0 % (0-3) Neutrophils # (Auto) 7.6 x10^3uL (1.8-7.7) Lymphocytes # (Auto) 1.7 x10^3/uL (1.0-4.8) Monocytes # (Auto) 1.1 x10^3/uL (0.0-1.1) Eosinophils # (Auto) 0.0 x10^3/uL (0.0-0.7) Basophils # (Auto) 0.0 x10^3/uL (0.0-0.2) Sodium Level 144 mmol/L (136-145) Potassium Level 3.9 mmol/L (3.5-5.1) Chloride Level 110 mmol/L (98-107) Carbon Dioxide Level 27 mmol/L (21-32) Anion Gap 7 (6-14) Blood Urea Nitrogen 12 mg/dL (7-20) Creatinine 0.6 mg/dL (0.6-1.0) Estimated GFR (Cockcroft-Gault) 97.2 Glucose Level 122 mg/dL (70-99) Calcium Level 6.8 mg/dL (8.5-10.1) Review of Systems Review of Systems A 14 point ROS was completed with the following noted as positive: Other systems reviewed and negative. \CONSTITUTIONAL: No fever or chills EYES: No recent changes SKIN: No rash or itching CARDIOVASCULAR: No chest pain, syncope, palpitations, or edema RESPIRATORY: No SOB or cough GASTROINTESTINAL: No nausea, vomiting or abdominal pain NEUROLOGICAL: No headaches or weakness ENDOCRINE: No cold or heat intolerance GENITOURINARY: No urgency or frequency of urination MUSCULOSKELETAL: No back pain or joint pain LYMPHATICS: No enlarged lymph nodes PSYCHIATRIC: No anxiety or depression Comment Review of Relevant I have reviewed the following items cynthia (where applicable) has been applied. Labs Laboratory Tests Test 05/21/18 12:45 05/21/18 14:00 05/21/18 16:00 05/21/18 18:33 Hemoglobin 10.2 g/dL (12.0-15.5) 11.1 g/dL (12.0-15.5) Hematocrit 29.8 % (36.0-47.0) 31.9 % (36.0-47.0) Mean Corpuscular Hemoglobin Concent 34 g/dL (31-37) 35 g/dL (31-37) Glucose (Fingerstick) 132 mg/dL (70-99) 123 mg/dL (70-99) Test 05/22/18 01:10 05/22/18 03:30 05/22/18 04:30 05/22/18 08:13 Hemoglobin 9.0 g/dL (12.0-15.5) 9.0 g/dL (12.0-15.5) Hematocrit 25.5 % (36.0-47.0) 26.8 % (36.0-47.0) Mean Corpuscular Hemoglobin Concent 35 g/dL (31-37) 34 g/dL (31-37) Sodium Level 140 mmol/L (136-145) Potassium Level 3.9 mmol/L (3.5-5.1) Chloride Level 106 mmol/L (98-107) Carbon Dioxide Level 28 mmol/L (21-32) Anion Gap 6 (6-14) Blood Urea Nitrogen 18 mg/dL (7-20) Creatinine 0.5 mg/dL (0.6-1.0) Estimated GFR (Cockcroft-Gault) 120.0 BUN/Creatinine Ratio 36 (6-20) Glucose Level 100 mg/dL (70-99) Calcium Level 7.6 mg/dL (8.5-10.1) Total Bilirubin 0.3 mg/dL (0.2-1.0) Aspartate Amino Transf (AST/SGOT) 13 U/L (15-37) Alanine Aminotransferase (ALT/SGPT) 11 U/L (14-59) Alkaline Phosphatase 35 U/L (46-116) Total Protein 4.9 g/dL (6.4-8.2) Albumin 2.1 g/dL (3.4-5.0) Albumin/Globulin Ratio 0.8 (1.0-1.7) White Blood Count 9.5 x10^3/uL (4.0-11.0) Red Blood Count 2.66 x10^6/uL (3.50-5.40) Mean Corpuscular Volume 101 fL (79-100) Mean Corpuscular Hemoglobin 34 pg (25-35) Red Cell Distribution Width 13.9 % (11.5-14.5) Platelet Count 164 x10^3/uL (140-400) Neutrophils (%) (Auto) 65 % (31-73) Lymphocytes (%) (Auto) 24 % (24-48) Monocytes (%) (Auto) 9 % (0-9) Eosinophils (%) (Auto) 2 % (0-3) Basophils (%) (Auto) 1 % (0-3) Neutrophils # (Auto) 6.2 x10^3uL (1.8-7.7) Lymphocytes # (Auto) 2.3 x10^3/uL (1.0-4.8) Monocytes # (Auto) 0.9 x10^3/uL (0.0-1.1) Eosinophils # (Auto) 0.1 x10^3/uL (0.0-0.7) Basophils # (Auto) 0.0 x10^3/uL (0.0-0.2) Glucose (Fingerstick) 97 mg/dL (70-99) Test 05/22/18 11:59 05/22/18 12:00 05/22/18 14:54 05/22/18 18:05 Glucose (Fingerstick) 110 mg/dL (70-99) 108 mg/dL (70-99) Hemoglobin 7.7 g/dL (12.0-15.5) 9.4 g/dL (12.0-15.5) Hematocrit 22.0 % (36.0-47.0) 28.0 % (36.0-47.0) Mean Corpuscular Hemoglobin Concent 35 g/dL (31-37) 34 g/dL (31-37) Test 05/22/18 18:11 05/23/18 00:40 05/23/18 04:45 Glucose (Fingerstick) 137 mg/dL (70-99) Hemoglobin 10.0 g/dL (12.0-15.5) 9.1 g/dL (12.0-15.5) Hematocrit 29.3 % (36.0-47.0) 26.1 % (36.0-47.0) Mean Corpuscular Hemoglobin Concent 34 g/dL (31-37) 35 g/dL (31-37) White Blood Count 10.5 x10^3/uL (4.0-11.0) Red Blood Count 2.75 x10^6/uL (3.50-5.40) Mean Corpuscular Volume 95 fL (79-100) Mean Corpuscular Hemoglobin 33 pg (25-35) Red Cell Distribution Width 16.4 % (11.5-14.5) Platelet Count 110 x10^3/uL (140-400) Neutrophils (%) (Auto) 73 % (31-73) Lymphocytes (%) (Auto) 17 % (24-48) Monocytes (%) (Auto) 11 % (0-9) Eosinophils (%) (Auto) 0 % (0-3) Basophils (%) (Auto) 0 % (0-3) Neutrophils # (Auto) 7.6 x10^3uL (1.8-7.7) Lymphocytes # (Auto) 1.7 x10^3/uL (1.0-4.8) Monocytes # (Auto) 1.1 x10^3/uL (0.0-1.1) Eosinophils # (Auto) 0.0 x10^3/uL (0.0-0.7) Basophils # (Auto) 0.0 x10^3/uL (0.0-0.2) Sodium Level 144 mmol/L (136-145) Potassium Level 3.9 mmol/L (3.5-5.1) Chloride Level 110 mmol/L (98-107) Carbon Dioxide Level 27 mmol/L (21-32) Anion Gap 7 (6-14) Blood Urea Nitrogen 12 mg/dL (7-20) Creatinine 0.6 mg/dL (0.6-1.0) Estimated GFR (Cockcroft-Gault) 97.2 Glucose Level 122 mg/dL (70-99) Calcium Level 6.8 mg/dL (8.5-10.1) Laboratory Tests Test 05/22/18 11:59 05/22/18 12:00 05/22/18 14:54 05/22/18 18:05 Glucose (Fingerstick) 110 mg/dL (70-99) 108 mg/dL (70-99) Hemoglobin 7.7 g/dL (12.0-15.5) 9.4 g/dL (12.0-15.5) Hematocrit 22.0 % (36.0-47.0) 28.0 % (36.0-47.0) Mean Corpuscular Hemoglobin Concent 35 g/dL (31-37) 34 g/dL (31-37) Test 05/22/18 18:11 05/23/18 00:40 05/23/18 04:45 Glucose (Fingerstick) 137 mg/dL (70-99) Hemoglobin 10.0 g/dL (12.0-15.5) 9.1 g/dL (12.0-15.5) Hematocrit 29.3 % (36.0-47.0) 26.1 % (36.0-47.0) Mean Corpuscular Hemoglobin Concent 34 g/dL (31-37) 35 g/dL (31-37) White Blood Count 10.5 x10^3/uL (4.0-11.0) Red Blood Count 2.75 x10^6/uL (3.50-5.40) Mean Corpuscular Volume 95 fL (79-100) Mean Corpuscular Hemoglobin 33 pg (25-35) Red Cell Distribution Width 16.4 % (11.5-14.5) Platelet Count 110 x10^3/uL (140-400) Neutrophils (%) (Auto) 73 % (31-73) Lymphocytes (%) (Auto) 17 % (24-48) Monocytes (%) (Auto) 11 % (0-9) Eosinophils (%) (Auto) 0 % (0-3) Basophils (%) (Auto) 0 % (0-3) Neutrophils # (Auto) 7.6 x10^3uL (1.8-7.7) Lymphocytes # (Auto) 1.7 x10^3/uL (1.0-4.8) Monocytes # (Auto) 1.1 x10^3/uL (0.0-1.1) Eosinophils # (Auto) 0.0 x10^3/uL (0.0-0.7) Basophils # (Auto) 0.0 x10^3/uL (0.0-0.2) Sodium Level 144 mmol/L (136-145) Potassium Level 3.9 mmol/L (3.5-5.1) Chloride Level 110 mmol/L (98-107) Carbon Dioxide Level 27 mmol/L (21-32) Anion Gap 7 (6-14) Blood Urea Nitrogen 12 mg/dL (7-20) Creatinine 0.6 mg/dL (0.6-1.0) Estimated GFR (Cockcroft-Gault) 97.2 Glucose Level 122 mg/dL (70-99) Calcium Level 6.8 mg/dL (8.5-10.1) Medications Current Medications Sodium Chloride 1,000 ml @ 100 mls/hr Q10H IV Last administered on 05/23/18at 03:07; Start 05/20/18 at 21:30 Pantoprazole Sodium (PROTONIX VIAL for IV PUSH) 40 mg DAILYAC IVP ; Start at 07:30; Stop 05/21/18 at 13:41; Status DC Ondansetron HCl (Zofran) 4 mg PRN Q6HRS PRN IV NAUSEA/VOMITING Last administered on 05/22/18at 11:23; Start 05/20/18 at 21:30 Acetaminophen (Tylenol) 650 mg PRN Q6HRS PRN PO MILD PAIN; Start 05/20/18 at 21 :30; Stop 05/23/18 at 11:35; Status DC Morphine Sulfate (Morphine Sulfate) 2 mg PRN Q2HR PRN IV PAIN; Start 05/20/18 at 21:30 Pantoprazole Sodium 80 mg/ Sodium Chloride 100 ml @ 10 mls/hr Q10H IV Last administered on 05/23/18at 09:29; Start 05/20/18 at 22:00; Stop 05/23/18 at 10:19 ; Status DC Pantoprazole Sodium (PROTONIX VIAL for IV PUSH) 80 mg 1X ONCE IVP Last administered on 05/20/18at 22:27; Start 05/20/18 at 22:00; Stop 05/20/18 at 22:01 ; Status DC Heparin Sodium (Porcine) (HEPARIN for NUC MED) 100 unit 1X ONCE IV Last administered on 05/21/18at 10:30; Start 05/21/18 at 10:30; Stop 05/21/18 at 10:31 ; Status DC Sodium Chloride 1,000 ml @ 1,000 mls/hr 1X ONCE IV Last administered on at 10:38; Start 05/21/18 at 10:45; Stop 05/21/18 at 11:44; Status DC Levothyroxine Sodium 25 mcg/ Sodium Chloride 5 ml @ 100 mls/hr DAILY IVP Last administered on 05/23/18at 09:29; Start 05/21/18 at 13:00; Stop 05/23/18 at 11:33 ; Status DC Insulin Human Lispro (HumaLOG) 0-5 UNITS TIDWMEALS SQ ; Start 05/21/18 at 17:00 Dextrose (Dextrose 50%-Water Syringe) 12.5 gm PRN Q15MIN PRN IV SEE COMMENTS; Start 05/21/18 at 13:00 Sodium Monofluorophosphate (Fleet Adult) 133 ml 1X ONCE [place] Last administered on 05/21/18at 13:58; Start 05/21/18 at 13:15; Stop 05/21/18 at 13:20; Status DC Sodium Monofluorophosphate (Fleet Adult) 133 ml 1X ONCE IL Last administered on 05/21/18at 13:55; Start 05/21/18 at 13:15; Stop 05/21/18 at 13:26; Status DC Midazolam HCl (Versed) 5 mg STK-MED ONCE .ROUTE ; Start 05/21/18 at 14:11; Stop 05/21/18 at 14:12; Status DC Fentanyl Citrate (Fentanyl 2ml Vial) 100 mcg STK-MED ONCE .ROUTE ; Start at 14:12; Stop 05/21/18 at 14:13; Status DC Epinephrine HCl (Adrenalin) 1 mg STK-MED ONCE .ROUTE ; Start 05/21/18 at 14:46; Stop 05/21/18 at 14:47; Status DC Epinephrine HCl (EPINEPHrine SYRINGE) 1 mg STK-MED ONCE .ROUTE ; Start 05/21/18 at 14:47; Stop 05/21/18 at 14:48; Status DC Fentanyl Citrate (Fentanyl 2ml Vial) 100 mcg STK-MED ONCE IV Last administered on 05/21/18at 14:50; Start 05/21/18 at 14:50; Stop 05/21/18 at 15:55; Status DC Midazolam HCl (Versed) 5 mg STK-MED ONCE IV Last administered on 05/21/18at 14: 51; Start 05/21/18 at 14:51; Stop 05/21/18 at 15:55; Status DC Midazolam HCl (Versed) 5 mg STK-MED ONCE IV Last administered on 05/21/18at 14: 52; Start 05/21/18 at 14:52; Stop 05/21/18 at 15:55; Status DC Fentanyl Citrate (Fentanyl 2ml Vial) 100 mcg STK-MED ONCE IV Last administered on 05/21/18at 14:54; Start 05/21/18 at 14:54; Stop 05/21/18 at 15:55; Status DC Midazolam HCl (Versed) 5 mg STK-MED ONCE IV Last administered on 05/21/18at 14: 56; Start 05/21/18 at 14:56; Stop 05/21/18 at 15:55; Status DC Midazolam HCl (Versed) 5 mg STK-MED ONCE IV Last administered on 05/21/18at 15: 02; Start 05/21/18 at 15:02; Stop 05/21/18 at 15:55; Status DC Iohexol (Omnipaque 300 Mg/ml) 90 ml 1X ONCE IV ; Start 05/21/18 at 17:15; Stop 05/21/18 at 17:17; Status DC Sodium Cl/Sod Bicarb/Potass Cl/ PEG (Golytely) 4,000 ml 1X ONCE PO Last administered on 05/21/18at 19:33; Start 05/21/18 at 18:30; Stop 05/21/18 at 18:31 ; Status DC Propofol 40 ml @ As Directed STK-MED ONCE IV ; Start 05/22/18 at 12:33; Stop at 12:34; Status DC Lidocaine/Sodium Bicarbonate (Buffered Lidocaine 1%) 3 ml STK-MED ONCE .ROUTE ; Start 05/22/18 at 15:01; Stop 05/22/18 at 15:02; Status DC Iohexol (Omnipaque 240 Mg/ml) 50 ml STK-MED ONCE .ROUTE ; Start 05/22/18 at 15: 01; Stop 05/22/18 at 15:02; Status DC Iohexol (Omnipaque 300 Mg/ml) 100 ml STK-MED ONCE .ROUTE ; Start 05/22/18 at 15: 01; Stop 05/22/18 at 15:02; Status DC Heparin Sodium/ Sodium Chloride 1,000 ml @ As Directed STK-MED ONCE .ROUTE ; Start 05/22/18 at 15:01; Stop 05/22/18 at 15:02; Status DC Midazolam HCl (Versed) 2 mg STK-MED ONCE .ROUTE ; Start 05/22/18 at 15:35; Stop 05/22/18 at 15:36; Status DC Fentanyl Citrate (Fentanyl 2ml Vial) 100 mcg STK-MED ONCE .ROUTE ; Start at 15:36; Stop 05/22/18 at 15:37; Status DC Heparin Sodium/ Sodium Chloride (HEPARIN for ARTERIAL LINE FLUSH) 1,000 unit 1X ONCE IART Last administered on 05/22/18at 17:40; Start 05/22/18 at 16:45; Stop 05/22/18 at 16:46; Status DC Lidocaine/Sodium Bicarbonate (Buffered Lidocaine 1%) 3 ml 1X ONCE IJ Last administered on 05/22/18at 17:40; Start 05/22/18 at 16:45; Stop 05/22/18 at 16:46 ; Status DC Midazolam HCl (Versed) 2 mg 1X ONCE IV Last administered on 05/22/18 17:39; Start 05/22/18 at 16:45; Stop 05/22/18 at 16:46; Status DC Fentanyl Citrate (Fentanyl 2ml Vial) 100 mcg 1X ONCE IV Last administered on 05/22/18at 17:39; Start 05/22/18 at 16:45; Stop 05/22/18 at 16:46; Status DC Iohexol (Omnipaque 300 Mg/ml) 100 ml 1X ONCE IART Last administered on at 17:39; Start 05/22/18 at 16:45; Stop 05/22/18 at 16:46; Status DC Iohexol (Omnipaque 240 Mg/ml) 50 ml 1X ONCE IART Last administered on at 17:40; Start 05/22/18 at 16:45; Stop 05/22/18 at 16:46; Status DC Info (CONTRAST GIVEN -- Rx MONITORING) 1 each PRN DAILY PRN MC SEE COMMENTS; Start 05/22/18 at 17:00; Stop 05/24/18 at 16:59 Midazolam HCl (Versed) 2 mg STK-MED ONCE .ROUTE ; Start 05/22/18 at 16:45; Stop 05/22/18 at 16:46; Status DC Fentanyl Citrate (Fentanyl 2ml Vial) 100 mcg STK-MED ONCE .ROUTE ; Start at 16:46; Stop 05/22/18 at 16:47; Status DC Iohexol (Omnipaque 300 Mg/ml) 100 ml STK-MED ONCE .ROUTE ; Start 05/22/18 at 16: 51; Stop 05/22/18 at 16:52; Status DC Epinephrine HCl (EPINEPHrine SYRINGE) 1 mg STK-MED ONCE .ROUTE ; Start 05/21/18 at 14:00; Stop 05/23/18 at 07:59; Status DC Fentanyl Citrate (Fentanyl 2ml Vial) 100 mcg STK-MED ONCE .ROUTE ; Start at 14:00; Stop 05/23/18 at 07:59; Status DC Midazolam HCl (Versed) 5 mg STK-MED ONCE .ROUTE ; Start 05/21/18 at 14:00; Stop 05/23/18 at 07:59; Status DC Pantoprazole Sodium (Protonix) 40 mg DAILYAC PO ; Start 05/24/18 at 07:30 Acetaminophen (Tylenol) 500 mg PRN Q6HRS PRN PO MILD PAIN / TEMP; Start at 11:45 Levothyroxine Sodium (Synthroid) 50 mcg DAILY06 PO ; Start 05/24/18 at 06:00 Active Scripts Active Reported Metformin Hcl 1,000 Mg Tablet 1,000 Mg PO BID Glyburide 2.5 Mg Tablet 1 Tab PO DAILY Vitamin D (Cholecalciferol (Vitamin D3)) 1,000 Unit Capsule 1,500 Unit PO DAILY Famotidine 40 Mg Tablet 40 Mg PO DAILY Levothyroxine Sodium 50 Mcg Tablet 50 Mcg PO DAILYAC Estrace (Estradiol) 2 Mg Tablet 2 Mg PO DAILY Biotin 10,000 Mcg Capsule 10,000 Mcg PO DAILY Sugey-C 1,000 Mg Tablet (Ascorbate Calcium/Bioflavonoid) 1 Each Tablet 1 Each PO DAILY Vitals/I & O Vital Sign - Last 24 Hours 05/22/18 05/22/18 05/22/18 05/22/18 12:00 12:00 12:49 13:00 Temp 98.4 97.9 98.4 97.9 Pulse 88 90 88 Resp 16 16 16 B/P (MAP) 122/52 (75) 116/53 (74) Pulse Ox 95 94 95 O2 Delivery Nasal Cannula Nasal Cannula Nasal Cannula O2 Flow Rate 2.0 2.0 2.0 05/22/18 05/22/18 05/22/18 05/22/18 13:26 13:45 13:51 13:53 Temp 98.4 98.8 97.5 98.4 98.8 97.5 Pulse 88 80 86 91 Resp 16 16 16 16 B/P (MAP) 103/48 80/34 69/42 83/32 Pulse Ox 97 97 O2 Delivery Nasal Cannula Nasal Cannula O2 Flow Rate 3 2 05/22/18 05/22/18 05/22/18 05/22/18 13:59 14:00 14:08 14:20 Pulse 91 90 97 89 Resp 16 18 16 16 B/P (MAP) 96/39 93/39 (57) 101/45 118/52 Pulse Ox 96 97 96 7 O2 Delivery Nasal Cannula Nasal Cannula Nasal Cannula Nasal Cannula O2 Flow Rate 3 2.0 2 3 05/22/18 05/22/18 05/22/18 05/22/18 14:30 15:00 16:00 16:25 Temp 97.5 98.8 97.5 98.8 Pulse 87 89 87 Resp 16 16 20 B/P (MAP) 147/57 147/57 (87) 122/51 Pulse Ox 94 O2 Delivery Nasal Cannula Non-Rebreather O2 Flow Rate 3.0 15.0 05/22/18 05/22/18 05/22/18 05/22/18 16:38 17:25 17:39 17:41 Temp 99.0 98.0 99.0 98.0 Pulse 88 89 97 Resp 20 20 16 20 B/P (MAP) 117/53 142/51 Pulse Ox 94 94 O2 Delivery Nasal Cannula Nasal Cannula O2 Flow Rate 4.0 4.0 05/22/18 05/22/18 05/22/18 05/22/18 17:45 18:00 18:20 18:31 Temp 97.5 97.6 97.6 97.5 97.6 97.6 Pulse 85 89 89 Resp 15 15 15 16 B/P (MAP) 127/64 127/64 (85) 134/64 Pulse Ox 98 98 O2 Delivery Nasal Cannula Nasal Cannula O2 Flow Rate 4.0 4.0 05/22/18 05/22/18 05/22/18 05/22/18 19:00 20:00 20:00 20:30 Temp 97.6 98.1 97.6 98.1 Pulse 89 104 60 Resp 16 18 18 B/P (MAP) 138/56 (83) 99/48 (65) 125/48 Pulse Ox 99 99 O2 Delivery Nasal Cannula Nasal Cannula Nasal Cannula O2 Flow Rate 4.0 4.0 4.0 05/22/18 05/22/18 05/22/18 05/23/18 21:00 22:00 23:00 00:00 Temp 98.0 98.0 Pulse 94 91 93 98 Resp 15 26 23 10 B/P (MAP) 137/45 (75) 125/53 (77) 125/53 (77) 104/47 (66) Pulse Ox 99 99 99 96 O2 Delivery Nasal Cannula Nasal Cannula Nasal Cannula Nasal Cannula O2 Flow Rate 4.0 4.0 4.0 4.0 05/23/18 05/23/18 05/23/18 05/23/18 00:00 01:00 02:00 03:00 Pulse 87 85 90 Resp 12 14 12 B/P (MAP) 143/49 (80) 100/40 (60) 90/38 (55) Pulse Ox 98 98 97 O2 Delivery Nasal Cannula Nasal Cannula Nasal Cannula Nasal Cannula O2 Flow Rate 4.0 4.0 4.0 4.0 05/23/18 05/23/18 05/23/18 05/23/18 04:00 04:00 05:00 06:00 Temp 97.9 97.9 Pulse 89 87 83 Resp 15 12 10 B/P (MAP) 100/48 (65) 110/54 (72) 106/48 (67) Pulse Ox 94 96 96 O2 Delivery Nasal Cannula Nasal Cannula Nasal Cannula Nasal Cannula O2 Flow Rate 4.0 4.0 4.0 4.0 05/23/18 05/23/18 05/23/18 05/23/18 07:00 08:00 08:00 08:30 Temp 98.9 98.9 Pulse 88 88 Resp 16 16 B/P (MAP) 111/57 (75) 147/50 (82) Pulse Ox 96 96 86 O2 Delivery Nasal Cannula Nasal Cannula Nasal Cannula Room Air O2 Flow Rate 4.0 4.0 4.0 05/23/18 09:00 Pulse 87 Resp 16 B/P (MAP) 116/48 (70) Pulse Ox 96 O2 Delivery Nasal Cannula O2 Flow Rate 4.0 Intake and Output 05/22/18 05/22/18 05/23/18 15:00 23:00 07:00 Intake Total 1629 ml 3409 ml 1675.8 ml Output Total 1050 ml Balance 579 ml 3409 ml 1675.8 ml GREY MANE MD May 23, 2018 11:59
[2018-05-23 12:03] LABS: HEMATOCRIT 28.2 % (36.0-47.0); HEMOGLOBIN 9.6 g/dL (12.0-15.5)
--- NOTE | 2018-05-23 14:24 | RAD ---
Ultrasound-guided vascular access, celiac artery angiogram; mesenteric artery angiogram; inferior mesenteric artery angiograms; superselective SMA second order branches x3; super selective inferior mesenteric artery fourth order x1; inferior mesenteric artery embolization: HISTORY: Patient with gastrointestinal hemorrhage. Positive nuclear medicine study suggesting splenic flexure: Hemorrhage, negative CT angiography, persistent GI bleeding. Upper endoscopy clear. Lower endoscopy shows blood and all of the visualized ileum suggesting small intestine hemorrhage. Exposure: Herman area product: 570 Gycm2 Anesthesia: Conscious sedation was performed with continuous cardiopulmonary monitoring by independent observer. Intravenous Versed and fentanyl were administered. Intraprocedure [id number] time was 126 minutes. ULTRASOUND: Real-time [place] scale sonographic imaging of the right groin was made. A very short right common femoral artery was seen but is noted to be patent. This was documented in the patient's permanent record in [facility] PACS. PROCEDURE: The right groin was draped and prepped in normal sterile fashion. Maximal barrier sterile technique was used. Local anesthesia with 1 percent lidocaine was performed. Under real-time ultrasound a 21-gauge needle was advanced to the right common femoral artery. Needle placement was confirmed by pulsatile blood flow. A microwire was placed the needle was exchanged with a wire for transitional sheath. This was exchanged over a wire for a short 5 [place] vascular sheath. Injuring the arteriotomy confirms a very short right common femoral artery with the arteriotomy in the middle of the right common femoral artery. There is mild spasm of the mid right external iliac artery incidentally noted with no flow limitation. A selective catheter was advanced into the upper abdominal aorta over a wire. Selective catheterization of the superior mesenteric artery was performed. Digital subtraction power injection angiography was performed of the superior mesenteric artery. This reveals some calcific plaque at the origin without evidence of significant stenosis. There is no evidence of contrast extravasation to suggest active hemorrhaging. Superselective catheterization with a microcatheter of early jejunal arcade going to the left upper quadrant proximal small intestine was selectively catheterized and digital subtraction angiogram was performed. No evidence of active hemorrhage. A second early SMA second order branch was selectively catheterized and this was seen in the mid upper abdomen and digital traction injury and was performed. This reveals a inferior pancreaticoduodenal artery with reflux collateral flow into a dorsal pancreatic artery off the celiac. No evidence of active gastrointestinal hemorrhage is seen. The third superselective catheterization with a microcatheter of a proximal SMA branch was performed. This reveals a component of the right colic artery but no evidence of active gastrointestinal hemorrhage. Selective catheterization of the celiac artery was performed. Digital subtraction power injection angiogram was obtained. No evidence of active gastrointestinal hemorrhage is identified. Selective catheterization of the inferior mesenteric artery was performed. Power injection digital subtraction angiogram was obtained. Active gastrointestinal hemorrhage is identified in the mid proximal descending colon. The microcatheter was then advanced out the left colic artery to the fourth order marginal artery of the mid descending colon just distal to the hemorrhage. 3 mm x 2 mm tornado coils were then deployed in sequence both proximal and distal to the hemorrhagic side with progression angiograms performed to document progression of hemostasis from the hemorrhage site. Perclose device was utilized for good hemostasis at the arteriotomy. IMPRESSION: Active hemorrhage identified in the mid descending colon off of fourth order and fifth order branches of the left colic artery in the marginal artery of [place]. Successful coil embolization with no evidence of residual hemorrhage following embolization Negative angiography in the SMA with superselective branches as described Negative angiography of the celiac artery Electronically signed by: Yared Osman MD (05/23/2018 2:21 PM) [facility] [place]
[2018-05-23] MEDS: ONDANSETRON PF 4 MG/2 ML VIAL. IV PRN (16:59)
[2018-05-23] MEDS ORDERED: CHOL10003 PO (20:10)
[2018-05-24] VITALS (7 sets, daily range): BP systolic 118–165; BP diastolic 40–80
[2018-05-24] MEDS: LEVOTHYROXINE 50 MCG TABLET PO SCH (06:20)
[2018-05-24] MEDS ORDERED: Pantoprazole PO (07:48)
[2018-05-24 07:50] LABS: HEMATOCRIT 26.2 % (36.0-47.0)
--- NOTE | 2018-05-24 08:36 | PDOC ---
PROGRESS NOTES Chief Complaint Chief Complaint AV mal, diverticular bleed s/p coiling by iR (04/22/18) acute anemia with gib hypotension with gib resolved dm2 controlled hld hypothyroidism History of Present Illness History of Present Illness Some blood-tinged stool today Hemodynamically stable Hemoglobin did drop to 9 from 9.6 in the last 12- 24 hrs. No abdominal pain Plan: Maintain clear for now, await GI Rounds H&H tomorrow if patient still stays Patient transfer out of ICU to room 508 Vitals Vitals Vital Signs Date Time Temp Pulse Resp B/P (MAP) Pulse Ox O2 Delivery O2 Flow Rate FiO2 05/24/18 04:00 98.0 85 18 127/40 (69) 100 Nasal Cannula 4.0 98.0 Physical Exam General: Alert, Oriented X3, Cooperative, No acute distress Heart: Regular rate, Normal S1, Normal S2 Lungs: Clear, Wheezing Abdomen: Normal bowel sounds, Soft, No tenderness Extremities: No clubbing, No cyanosis Skin: No rashes, No breakdown Labs LABS Laboratory Tests Test 05/23/18 11:45 05/23/18 12:25 05/23/18 17:28 05/23/18 20:26 Hemoglobin 9.6 g/dL (12.0-15.5) Hematocrit 28.2 % (36.0-47.0) Mean Corpuscular Hemoglobin Concent 34 g/dL (31-37) Glucose (Fingerstick) 131 mg/dL (70-99) 150 mg/dL (70-99) 133 mg/dL (70-99) Test 05/24/18 06:47 Hemoglobin 9.0 g/dL (12.0-15.5) Hematocrit 26.2 % (36.0-47.0) Mean Corpuscular Hemoglobin Concent 34 g/dL (31-37) Review of Systems Review of Systems A 14 point ROS was completed with the following noted as positive: Other systems reviewed and negative. \CONSTITUTIONAL: No fever or chills EYES: No recent changes SKIN: No rash or itching CARDIOVASCULAR: No chest pain, syncope, palpitations, or edema RESPIRATORY: No SOB or cough GASTROINTESTINAL: No nausea, vomiting or abdominal pain NEUROLOGICAL: No headaches or weakness ENDOCRINE: No cold or heat intolerance GENITOURINARY: No urgency or frequency of urination MUSCULOSKELETAL: No back pain or joint pain LYMPHATICS: No enlarged lymph nodes PSYCHIATRIC: No anxiety or depression Comment Review of Relevant I have reviewed the following items cynthia (where applicable) has been applied. Labs Laboratory Tests Test 05/22/18 11:59 05/22/18 12:00 05/22/18 14:54 05/22/18 18:05 Glucose (Fingerstick) 110 mg/dL (70-99) 108 mg/dL (70-99) Hemoglobin 7.7 g/dL (12.0-15.5) 9.4 g/dL (12.0-15.5) Hematocrit 22.0 % (36.0-47.0) 28.0 % (36.0-47.0) Mean Corpuscular Hemoglobin Concent 35 g/dL (31-37) 34 g/dL (31-37) Test 05/22/18 18:11 05/23/18 00:40 05/23/18 04:45 05/23/18 11:45 Glucose (Fingerstick) 137 mg/dL (70-99) Hemoglobin 10.0 g/dL (12.0-15.5) 9.1 g/dL (12.0-15.5) 9.6 g/dL (12.0-15.5) Hematocrit 29.3 % (36.0-47.0) 26.1 % (36.0-47.0) 28.2 % (36.0-47.0) Mean Corpuscular Hemoglobin Concent 34 g/dL (31-37) 35 g/dL (31-37) 34 g/dL (31-37) White Blood Count 10.5 x10^3/uL (4.0-11.0) Red Blood Count 2.75 x10^6/uL (3.50-5.40) Mean Corpuscular Volume 95 fL (79-100) Mean Corpuscular Hemoglobin 33 pg (25-35) Red Cell Distribution Width 16.4 % (11.5-14.5) Platelet Count 110 x10^3/uL (140-400) Neutrophils (%) (Auto) 73 % (31-73) Lymphocytes (%) (Auto) 17 % (24-48) Monocytes (%) (Auto) 11 % (0-9) Eosinophils (%) (Auto) 0 % (0-3) Basophils (%) (Auto) 0 % (0-3) Neutrophils # (Auto) 7.6 x10^3uL (1.8-7.7) Lymphocytes # (Auto) 1.7 x10^3/uL (1.0-4.8) Monocytes # (Auto) 1.1 x10^3/uL (0.0-1.1) Eosinophils # (Auto) 0.0 x10^3/uL (0.0-0.7) Basophils # (Auto) 0.0 x10^3/uL (0.0-0.2) Sodium Level 144 mmol/L (136-145) Potassium Level 3.9 mmol/L (3.5-5.1) Chloride Level 110 mmol/L (98-107) Carbon Dioxide Level 27 mmol/L (21-32) Anion Gap 7 (6-14) Blood Urea Nitrogen 12 mg/dL (7-20) Creatinine 0.6 mg/dL (0.6-1.0) Estimated GFR (Cockcroft-Gault) 97.2 Glucose Level 122 mg/dL (70-99) Calcium Level 6.8 mg/dL (8.5-10.1) Test 05/23/18 12:25 05/23/18 17:28 05/23/18 20:26 05/24/18 06:47 Glucose (Fingerstick) 131 mg/dL (70-99) 150 mg/dL (70-99) 133 mg/dL (70-99) Hemoglobin 9.0 g/dL (12.0-15.5) Hematocrit 26.2 % (36.0-47.0) Mean Corpuscular Hemoglobin Concent 34 g/dL (31-37) Laboratory Tests Test 05/23/18 11:45 05/23/18 12:25 05/23/18 17:28 05/23/18 20:26 Hemoglobin 9.6 g/dL (12.0-15.5) Hematocrit 28.2 % (36.0-47.0) Mean Corpuscular Hemoglobin Concent 34 g/dL (31-37) Glucose (Fingerstick) 131 mg/dL (70-99) 150 mg/dL (70-99) 133 mg/dL (70-99) Test 05/24/18 06:47 Hemoglobin 9.0 g/dL (12.0-15.5) Hematocrit 26.2 % (36.0-47.0) Mean Corpuscular Hemoglobin Concent 34 g/dL (31-37) Medications Current Medications Sodium Chloride 1,000 ml @ 100 mls/hr Q10H IV Last administered on 05/23/18 03:07; Start 05/20/18 at 21:30; Stop 05/23/18 at 11:58; Status DC Pantoprazole Sodium (PROTONIX VIAL for IV PUSH) 40 mg DAILYAC IVP ; Start at 07:30; Stop 05/21/18 at 13:41; Status DC Ondansetron HCl (Zofran) 4 mg PRN Q6HRS PRN IV NAUSEA/VOMITING Last administered on 05/23/18at 16:59; Start 05/20/18 at 21:30 Acetaminophen (Tylenol) 650 mg PRN Q6HRS PRN PO MILD PAIN; Start 05/20/18 at 21 :30; Stop 05/23/18 at 11:35; Status DC Morphine Sulfate (Morphine Sulfate) 2 mg PRN Q2HR PRN IV PAIN; Start 05/20/18 at 21:30 Pantoprazole Sodium 80 mg/ Sodium Chloride 100 ml @ 10 mls/hr Q10H IV Last administered on 05/23/18at 09:29; Start 05/20/18 at 22:00; Stop 05/23/18 at 10:19 ; Status DC Pantoprazole Sodium (PROTONIX VIAL for IV PUSH) 80 mg 1X ONCE IVP Last administered on 05/20/18at 22:27; Start 05/20/18 at 22:00; Stop 05/20/18 at 22:01 ; Status DC Heparin Sodium (Porcine) (HEPARIN for NUC MED) 100 unit 1X ONCE IV Last administered on 05/21/18at 10:30; Start 05/21/18 at 10:30; Stop 05/21/18 at 10:31 ; Status DC Sodium Chloride 1,000 ml @ 1,000 mls/hr 1X ONCE IV Last administered on at 10:38; Start 05/21/18 at 10:45; Stop 05/21/18 at 11:44; Status DC Levothyroxine Sodium 25 mcg/ Sodium Chloride 5 ml @ 100 mls/hr DAILY IVP Last administered on 10/8/18at 09:29; Start 05/21/18 at 13:00; Stop 05/23/18 at 11:33 ; Status DC Insulin Human Lispro (HumaLOG) 0-5 UNITS TIDWMEALS SQ ; Start 05/21/18 at 17:00 Dextrose (Dextrose 50%-Water Syringe) 12.5 gm PRN Q15MIN PRN IV SEE COMMENTS; Start 05/21/18 at 13:00 Sodium Monofluorophosphate (Fleet Adult) 133 ml 1X ONCE CA Last administered on 05/21/18at 13:58; Start 05/21/18 at 13:15; Stop 05/21/18 at 13:20; Status DC Sodium Monofluorophosphate (Fleet Adult) 133 ml 1X ONCE CA Last administered on 05/21/18at 13:55; Start 05/21/18 at 13:15; Stop 05/21/18 at 13:26; Status DC Midazolam HCl (Versed) 5 mg STK-MED ONCE .ROUTE ; Start 05/21/18 at 14:11; Stop 05/21/18 at 14:12; Status DC Fentanyl Citrate (Fentanyl 2ml Vial) 100 mcg STK-MED ONCE .ROUTE ; Start at 14:12; Stop 05/21/18 at 14:13; Status DC Epinephrine HCl (Adrenalin) 1 mg STK-MED ONCE .ROUTE ; Start 05/21/18 at 14:46; Stop 05/21/18 at 14:47; Status DC Epinephrine HCl (EPINEPHrine SYRINGE) 1 mg STK-MED ONCE .ROUTE ; Start 05/21/18 at 14:47; Stop 05/21/18 at 14:48; Status DC Fentanyl Citrate (Fentanyl 2ml Vial) 100 mcg STK-MED ONCE IV Last administered on 05/21/18at 14:50; Start 05/21/18 at 14:50; Stop 05/21/18 at 15:55; Status DC Midazolam HCl (Versed) 5 mg STK-MED ONCE IV Last administered on 05/21/18at 14: 51; Start 05/21/18 at 14:51; Stop 05/21/18 at 15:55; Status DC Midazolam HCl (Versed) 5 mg STK-MED ONCE IV Last administered on 05/21/18at 14: 52; Start 05/21/18 at 14:52; Stop 05/21/18 at 15:55; Status DC Fentanyl Citrate (Fentanyl 2ml Vial) 100 mcg STK-MED ONCE IV Last administered on 05/21/18at 14:54; Start 05/21/18 at 14:54; Stop 05/21/18 at 15:55; Status DC Midazolam HCl (Versed) 5 mg STK-MED ONCE IV Last administered on 05/21/18at 14: 56; Start 05/21/18 at 14:56; Stop 05/21/18 at 15:55; Status DC Midazolam HCl (Versed) 5 mg STK-MED ONCE IV Last administered on 05/21/18at 15: 02; Start 05/21/18 at 15:02; Stop 05/21/18 at 15:55; Status DC Iohexol (Omnipaque 300 Mg/ml) 90 ml 1X ONCE IV ; Start 05/21/18 at 17:15; Stop 05/21/18 at 17:17; Status DC Sodium Cl/Sod Bicarb/Potass Cl/ PEG (Golytely) 4,000 ml 1X ONCE PO Last administered on 05/21/18at 19:33; Start 05/21/18 at 18:30; Stop 05/21/18 at 18:31 ; Status DC Propofol 40 ml @ As Directed STK-MED ONCE IV ; Start 05/22/18 at 12:33; Stop at 12:34; Status DC Lidocaine/Sodium Bicarbonate (Buffered Lidocaine 1%) 3 ml STK-MED ONCE .ROUTE ; Start 05/22/18 at 15:01; Stop 05/22/18 at 15:02; Status DC Iohexol (Omnipaque 240 Mg/ml) 50 ml STK-MED ONCE .ROUTE ; Start 05/22/18 at 15: 01; Stop 05/22/18 at 15:02; Status DC Iohexol (Omnipaque 300 Mg/ml) 100 ml STK-MED ONCE .ROUTE ; Start 05/22/18 at 15: 01; Stop 05/22/18 at 15:02; Status DC Heparin Sodium/ Sodium Chloride 1,000 ml @ As Directed STK-MED ONCE .ROUTE ; Start 05/22/18 at 15:01; Stop 05/22/18 at 15:02; Status DC Midazolam HCl (Versed) 2 mg STK-MED ONCE .ROUTE ; Start 05/22/18 at 15:35; Stop 05/22/18 at 15:36; Status DC Fentanyl Citrate (Fentanyl 2ml Vial) 100 mcg STK-MED ONCE .ROUTE ; Start at 15:36; Stop 05/22/18 at 15:37; Status DC Heparin Sodium/ Sodium Chloride (HEPARIN for ARTERIAL LINE FLUSH) 1,000 unit 1X ONCE IART Last administered on 05/22/18at 17:40; Start 05/22/18 at 16:45; Stop 05/22/18 at 16:46; Status DC Lidocaine/Sodium Bicarbonate (Buffered Lidocaine 1%) 3 ml 1X ONCE IJ Last administered on 05/22/18at 17:40; Start 05/22/18 at 16:45; Stop 05/22/18 at 16:46 ; Status DC Midazolam HCl (Versed) 2 mg 1X ONCE IV Last administered on 05/22/18at 17:39; Start 05/22/18 at 16:45; Stop 05/22/18 at 16:46; Status DC Fentanyl Citrate (Fentanyl 2ml Vial) 100 mcg 1X ONCE IV Last administered on 05/22/18at 17:39; Start 05/22/18 at 16:45; Stop 05/22/18 at 16:46; Status DC Iohexol (Omnipaque 300 Mg/ml) 100 ml 1X ONCE IART Last administered on at 17:39; Start 05/22/18 at 16:45; Stop 05/22/18 at 16:46; Status DC Iohexol (Omnipaque 240 Mg/ml) 50 ml 1X ONCE IART Last administered on at 17:40; Start 05/22/18 at 16:45; Stop 05/22/18 at 16:46; Status DC Info (CONTRAST GIVEN -- Rx MONITORING) 1 each PRN DAILY PRN MC SEE COMMENTS; Start 05/22/18 at 17:00; Stop 05/24/18 at 16:59 Midazolam HCl (Versed) 2 mg STK-MED ONCE .ROUTE ; Start 05/22/18 at 16:45; Stop 05/22/18 at 16:46; Status DC Fentanyl Citrate (Fentanyl 2ml Vial) 100 mcg STK-MED ONCE .ROUTE ; Start at 16:46; Stop 05/22/18 at 16:47; Status DC Iohexol (Omnipaque 300 Mg/ml) 100 ml STK-MED ONCE .ROUTE ; Start 05/22/18 at 16: 51; Stop 05/22/18 at 16:52; Status DC Epinephrine HCl (EPINEPHrine SYRINGE) 1 mg STK-MED ONCE .ROUTE ; Start 05/21/18 at 14:00; Stop 05/23/18 at 07:59; Status DC Fentanyl Citrate (Fentanyl 2ml Vial) 100 mcg STK-MED ONCE .ROUTE ; Start at 14:00; Stop 05/23/18 at 07:59; Status DC Midazolam HCl (Versed) 5 mg STK-MED ONCE .ROUTE ; Start 05/21/18 at 14:00; Stop 05/23/18 at 07:59; Status DC Pantoprazole Sodium (Protonix) 40 mg DAILYAC PO ; Start 05/24/18 at 07:30 Acetaminophen (Tylenol) 500 mg PRN Q6HRS PRN PO MILD PAIN / TEMP; Start at 11:45 Levothyroxine Sodium (Synthroid) 50 mcg DAILY06 PO Last administered on at 06:20; Start 05/24/18 at 06:00 Vitamin D (Vitamin D3) 3,000 unit DAILY PO ; Start 05/24/18 at 09:00 Non-Formulary Medication (Ascorbate Calcium/ Bioflavonoid (Sugey-C 1,000 Mg Tablet)) 1 each DAILY PO ; Start 05/24/18 at 09:00; Status UNV Non-Formulary Medication (Biotin ) 10,000 mcg DAILY PO ; Start 05/24/18 at 09:00 ; Status UNV Estradiol (Estrace) 2 mg DAILY PO ; Start 05/24/18 at 09:00 Glyburide (Diabeta) 2.5 mg DAILY PO ; Start 05/24/18 at 09:00 Metformin HCl (Glucophage) 1,000 mg BIDWMEALS PO ; Start 05/24/18 at 17:00 Active Scripts Active [Pantoprazole] 40 MG Tablet.dr 40 Mg PO DAILYAC Reported Vitamin D3 (Cholecalciferol (Vitamin D3)) 1,000 Unit Tablet 3 Tab PO DAILY Metformin Hcl 1,000 Mg Tablet 1,000 Mg PO BID Glyburide 2.5 Mg Tablet 1 Tab PO DAILY Famotidine 40 Mg Tablet 40 Mg PO DAILY Levothyroxine Sodium 50 Mcg Tablet 50 Mcg PO DAILYAC Estrace (Estradiol) 2 Mg Tablet 2 Mg PO DAILY Biotin 10,000 Mcg Capsule 10,000 Mcg PO DAILY Sugey-C 1,000 Mg Tablet (Ascorbate Calcium/Bioflavonoid) 1 Each Tablet 1 Each PO DAILY Vitals/I & O Vital Sign - Last 24 Hours 05/23/18 05/23/18 05/23/18 05/23/18 09:00 10:00 11:00 12:00 Pulse 87 82 88 Resp 16 16 16 B/P (MAP) 116/48 (70) 135/53 (80) 118/42 (67) Pulse Ox 96 99 99 O2 Delivery Nasal Cannula Nasal Cannula Nasal Cannula Nasal Cannula O2 Flow Rate 4.0 4.0 4.0 4.0 05/23/18 05/23/18 05/23/18 05/23/18 12:00 16:00 20:00 21:00 Temp 98.1 98.0 97.9 98.1 98.0 97.9 Pulse 82 82 93 Resp 16 20 18 B/P (MAP) 94/60 (71) 102/56 (71) 138/64 (88) Pulse Ox 99 100 96 O2 Delivery Nasal Cannula Nasal Cannula Nasal Cannula Nasal Cannula O2 Flow Rate 4.0 4.0 4.0 4.0 05/24/18 05/24/18 00:00 04:00 Temp 98.1 98.0 98.1 98.0 Pulse 97 85 Resp 20 18 B/P (MAP) 165/80 (108) 127/40 (69) Pulse Ox 99 100 O2 Delivery Nasal Cannula Nasal Cannula O2 Flow Rate 4.0 4.0 Intake and Output 05/23/18 05/23/18 05/24/18 15:00 23:00 07:00 Intake Total 236 ml Output Total 360 ml 120 ml Balance -360 ml 116 ml GREY MANE MD May 24, 2018 08:36
[2018-05-24] MEDS ORDERED: NON FORMULARY ITEM (Biotin 10,000 MCG) PO SCH (09:00)
[2018-05-24] MEDS ORDERED: NON FORMULARY ITEM (Ascorbate Calcium/Bioflavonoid (Ester-C 1,000 Mg Tablet) 1 EACH) PO SCH (09:00)
[2018-05-24] MEDS: INSULIN LISPRO 300 UNITS/3 ML INSULN.PEN. SQ SCH ×3 (09:03→16:32)
[2018-05-24] MEDS: PANTOPRAZOLE 40 MG TABLET.DR. PO SCH (09:07)
--- NOTE | 2018-05-24 09:36 | PDOC ---
REECE RUSSELL [employer] 05/24/18 0936: SURGICAL PROGRESS NOTE Subjective tolerating liquids maybe one stool with blood yesterday, she is unsure none since Vital Signs Vital Signs Date Time Temp Pulse Resp B/P (MAP) Pulse Ox O2 Delivery O2 Flow Rate FiO2 05/24/18 04:00 98.0 85 18 127/40 (69) 100 Nasal Cannula 4.0 98.0 I&O Intake and Output 05/24/18 07:00 Intake Total 236 ml Output Total 480 ml Balance -244 ml Intake Oral 236 ml Urine/Stool Mix 480 ml # Voids 3 General: Alert, Oriented X3, Cooperative, No acute distress Abdomen: Soft, No tenderness Labs Laboratory Tests Test 05/22/18 11:59 05/22/18 12:00 05/22/18 14:54 05/22/18 18:05 Glucose (Fingerstick) 110 mg/dL (70-99) 108 mg/dL (70-99) Hemoglobin 7.7 g/dL (12.0-15.5) 9.4 g/dL (12.0-15.5) Hematocrit 22.0 % (36.0-47.0) 28.0 % (36.0-47.0) Mean Corpuscular Hemoglobin Concent 35 g/dL (31-37) 34 g/dL (31-37) Test 05/22/18 18:11 05/23/18 00:40 05/23/18 04:45 05/23/18 11:45 Glucose (Fingerstick) 137 mg/dL (70-99) Hemoglobin 10.0 g/dL (12.0-15.5) 9.1 g/dL (12.0-15.5) 9.6 g/dL (12.0-15.5) Hematocrit 29.3 % (36.0-47.0) 26.1 % (36.0-47.0) 28.2 % (36.0-47.0) Mean Corpuscular Hemoglobin Concent 34 g/dL (31-37) 35 g/dL (31-37) 34 g/dL (31-37) White Blood Count 10.5 x10^3/uL (4.0-11.0) Red Blood Count 2.75 x10^6/uL (3.50-5.40) Mean Corpuscular Volume 95 fL (79-100) Mean Corpuscular Hemoglobin 33 pg (25-35) Red Cell Distribution Width 16.4 % (11.5-14.5) Platelet Count 110 x10^3/uL (140-400) Neutrophils (%) (Auto) 73 % (31-73) Lymphocytes (%) (Auto) 17 % (24-48) Monocytes (%) (Auto) 11 % (0-9) Eosinophils (%) (Auto) 0 % (0-3) Basophils (%) (Auto) 0 % (0-3) Neutrophils # (Auto) 7.6 x10^3uL (1.8-7.7) Lymphocytes # (Auto) 1.7 x10^3/uL (1.0-4.8) Monocytes # (Auto) 1.1 x10^3/uL (0.0-1.1) Eosinophils # (Auto) 0.0 x10^3/uL (0.0-0.7) Basophils # (Auto) 0.0 x10^3/uL (0.0-0.2) Sodium Level 144 mmol/L (136-145) Potassium Level 3.9 mmol/L (3.5-5.1) Chloride Level 110 mmol/L (98-107) Carbon Dioxide Level 27 mmol/L (21-32) Anion Gap 7 (6-14) Blood Urea Nitrogen 12 mg/dL (7-20) Creatinine 0.6 mg/dL (0.6-1.0) Estimated GFR (Cockcroft-Gault) 97.2 Glucose Level 122 mg/dL (70-99) Calcium Level 6.8 mg/dL (8.5-10.1) Test 05/23/18 12:25 05/23/18 17:28 05/23/18 20:26 05/24/18 06:47 Glucose (Fingerstick) 131 mg/dL (70-99) 150 mg/dL (70-99) 133 mg/dL (70-99) Hemoglobin 9.0 g/dL (12.0-15.5) Hematocrit 26.2 % (36.0-47.0) Mean Corpuscular Hemoglobin Concent 34 g/dL (31-37) Test 05/24/18 09:01 Glucose (Fingerstick) 132 mg/dL (70-99) Laboratory Tests Test 05/23/18 11:45 05/23/18 12:25 05/23/18 17:28 05/23/18 20:26 Hemoglobin 9.6 g/dL (12.0-15.5) Hematocrit 28.2 % (36.0-47.0) Mean Corpuscular Hemoglobin Concent 34 g/dL (31-37) Glucose (Fingerstick) 131 mg/dL (70-99) 150 mg/dL (70-99) 133 mg/dL (70-99) Test 05/24/18 06:47 05/24/18 09:01 Hemoglobin 9.0 g/dL (12.0-15.5) Hematocrit 26.2 % (36.0-47.0) Mean Corpuscular Hemoglobin Concent 34 g/dL (31-37) Glucose (Fingerstick) 132 mg/dL (70-99) Problem List gi bleed, hgb 9, was 9.6 yesterday--no surgical plans at this point WOODY SANCHEZ MD 05/24/18 2158: SURGICAL PROGRESS NOTE Assessment/Plan Agree with above, stable following IR coiling REECE RUSSELL APRN May 24, 2018 09:36 WOODY SANCHEZ MD May 24, 2018 21:58
[2018-05-24] MEDS: glyBURIDE 5 MG TABLET PO SCH (10:23)
[2018-05-24] MEDS: ESTRADIOL 1 MG TABLET. PO SCH (10:23)
[2018-05-24] MEDS: CHOLECALCIFEROL (VITAMIN D3) 1,000 UNIT TABLET PO SCH (10:24)
--- NOTE | 2018-05-24 11:39 | PDOC ---
Subjective: Subjective: Asked about bleeding, she says "apparently I had some" but doesn't remember/didn 't see it. Had some nausea yesterday, better now. No abd pain, tolerating clears. Has some questions about diverticulosis. Objective: Objective: Reviewed w/ RN - in ICU this morning before transferring to floor, passed a small dark red clot without stool. Reviewed other notes - kept on clears. Vital Signs: Vital Signs Date Time Temp Pulse Resp B/P (MAP) Pulse Ox O2 Delivery O2 Flow Rate FiO2 05/24/18 08:00 Nasal Cannula 4.0 05/24/18 07:00 98.0 85 127/40 (69) 100 98.0 05/24/18 04:00 18 Labs: Laboratory Tests Test 05/23/18 11:45 05/23/18 12:25 05/23/18 17:28 05/23/18 20:26 Hemoglobin 9.6 g/dL Hematocrit 28.2 % Mean Corpuscular Hemoglobin Concent 34 g/dL Glucose (Fingerstick) 131 mg/dL 150 mg/dL 133 mg/dL Test 05/24/18 06:47 05/24/18 09:01 05/24/18 10:49 Hemoglobin 9.0 g/dL Hematocrit 26.2 % Mean Corpuscular Hemoglobin Concent 34 g/dL Glucose (Fingerstick) 132 mg/dL 125 mg/dL PE: GEN: NAD, up to chair LUNGS: NC HEART: RRR ABD: S/ND/NT NEURO/PSYCH: A & O 3 A/P: GI bleeding - s/p IR coil -- Passed some blood this morning - ?residual, Hgb stable (9.6 to 9) Has been kept on clears. RN called around 1400 - pt passed a larger amount of dark red blood w/ clots. Will check hemogram and defer to surgery re: bleeding (and diet). JULIO CESAR RENTERIA May 24, 2018 11:39
[2018-05-24 14:51] LABS: HEMATOCRIT 26.4 % (36.0-47.0); RED BLOOD COUNT 2.75 x10^6/uL (3.50-5.40); RED CELL DISTRIBUTION WIDTH 16.6 % (11.5-14.5); WHITE BLOOD COUNT 9.9 x10^3/uL (4.0-11.0)
[2018-05-24] MEDS: metFORMIN 500 MG TABLET PO SCH (17:00)
[2018-05-25] MEDS: LEVOTHYROXINE 50 MCG TABLET PO SCH (06:17)
[2018-05-25 06:24] LABS: HEMATOCRIT 23.1 % (36.0-47.0); HEMOGLOBIN 7.8 g/dL (12.0-15.5)
[2018-05-25 07:00] VITALS: BP 140/59
[2018-05-25] MEDS: INSULIN LISPRO 300 UNITS/3 ML INSULN.PEN. SQ SCH ×3 (07:48→17:00)
[2018-05-25] MEDS: metFORMIN 500 MG TABLET PO SCH ×3 (08:00→16:42)
[2018-05-25] MEDS: CHOLECALCIFEROL (VITAMIN D3) 1,000 UNIT TABLET PO SCH (08:03)
[2018-05-25] MEDS: glyBURIDE 5 MG TABLET PO SCH (08:04)
[2018-05-25] MEDS: PANTOPRAZOLE 40 MG TABLET.DR. PO SCH (08:04)
[2018-05-25] MEDS: ESTRADIOL 1 MG TABLET. PO SCH (08:04)
--- NOTE | 2018-05-25 08:15 | PDOC ---
REECE RUSSELL [employer] 05/25/18 0815: SURGICAL PROGRESS NOTE Subjective depressed hgb is down no pain no bleeding this AM some dark blood yesterday am pt thinks Vital Signs Vital Signs Date Time Temp Pulse Resp B/P (MAP) Pulse Ox O2 Delivery O2 Flow Rate FiO2 05/24/18 23:00 96.4 94 18 121/58 (79) 99 Nasal Cannula 3.0 96.4 I&O Intake and Output 05/25/18 07:00 Intake Total 300 ml Balance 300 ml Intake Oral 300 ml # Voids 2 General: Alert, Oriented X3, Cooperative, No acute distress Abdomen: Soft, No tenderness Labs Laboratory Tests Test 05/23/18 11:45 05/23/18 12:25 05/23/18 17:28 05/23/18 20:26 Hemoglobin 9.6 g/dL (12.0-15.5) Hematocrit 28.2 % (36.0-47.0) Mean Corpuscular Hemoglobin Concent 34 g/dL (31-37) Glucose (Fingerstick) 131 mg/dL (70-99) 150 mg/dL (70-99) 133 mg/dL (70-99) Test 05/24/18 06:47 05/24/18 09:01 05/24/18 10:49 05/24/18 14:40 Hemoglobin 9.0 g/dL (12.0-15.5) 9.0 g/dL (12.0-15.5) Hematocrit 26.2 % (36.0-47.0) 26.4 % (36.0-47.0) Mean Corpuscular Hemoglobin Concent 34 g/dL (31-37) 34 g/dL (31-37) Glucose (Fingerstick) 132 mg/dL (70-99) 125 mg/dL (70-99) White Blood Count 9.9 x10^3/uL (4.0-11.0) Red Blood Count 2.75 x10^6/uL (3.50-5.40) Mean Corpuscular Volume 96 fL (79-100) Mean Corpuscular Hemoglobin 33 pg (25-35) Red Cell Distribution Width 16.6 % (11.5-14.5) Platelet Count 126 x10^3/uL (140-400) Test 05/24/18 16:46 05/24/18 20:39 05/25/18 04:56 05/25/18 07:35 Glucose (Fingerstick) 98 mg/dL (70-99) 92 mg/dL (70-99) 98 mg/dL (70-99) Hemoglobin 7.8 g/dL (12.0-15.5) Hematocrit 23.1 % (36.0-47.0) Mean Corpuscular Hemoglobin Concent 34 g/dL (31-37) Laboratory Tests Test 05/24/18 09:01 05/24/18 10:49 05/24/18 14:40 05/24/18 16:46 Glucose (Fingerstick) 132 mg/dL (70-99) 125 mg/dL (70-99) 98 mg/dL (70-99) White Blood Count 9.9 x10^3/uL (4.0-11.0) Red Blood Count 2.75 x10^6/uL (3.50-5.40) Hemoglobin 9.0 g/dL (12.0-15.5) Hematocrit 26.4 % (36.0-47.0) Mean Corpuscular Volume 96 fL (79-100) Mean Corpuscular Hemoglobin 33 pg (25-35) Mean Corpuscular Hemoglobin Concent 34 g/dL (31-37) Red Cell Distribution Width 16.6 % (11.5-14.5) Platelet Count 126 x10^3/uL (140-400) Test 05/24/18 20:39 05/25/18 04:56 05/25/18 07:35 Glucose (Fingerstick) 92 mg/dL (70-99) 98 mg/dL (70-99) Hemoglobin 7.8 g/dL (12.0-15.5) Hematocrit 23.1 % (36.0-47.0) Mean Corpuscular Hemoglobin Concent 34 g/dL (31-37) Assessment/Plan gi bleed, s/p coil hgb 7.8-was 9---monitor for bleeding today, h/h in AM will review with WOODY Toledo MD 05/25/18 0951: SURGICAL PROGRESS NOTE Assessment/Plan Agree with above, continue observation REECE RUSSELL APRN May 25, 2018 08:15 WOODY SANCHEZ MD May 25, 2018 09:51
--- NOTE | 2018-05-25 08:51 | PDOC ---
PROGRESS NOTES Chief Complaint Chief Complaint AV mal, diverticular bleed s/p coiling by iR (04/22/18) acute anemia with gib DROP IN HGB hypotension with gib resolved dm2 controlled hld hypothyroidism History of Present Illness History of Present Illness Some blood-tinged stool Hemodynamically stable Hemoglobin did drop to 9 from 7.6 in the last 12- 48 hrs. No abdominal pain Plan: Maintain clear for now, await GI Rounds H&H AT 1 PM Vitals Vitals Vital Signs Date Time Temp Pulse Resp B/P (MAP) Pulse Ox O2 Delivery O2 Flow Rate FiO2 05/25/18 07:00 98.2 96 18 140/59 (86) 95 Nasal Cannula 3.0 98.2 Physical Exam General: Alert, Oriented X3, Cooperative, No acute distress Heart: Regular rate, Normal S1, Normal S2 Lungs: Clear, Wheezing Abdomen: Soft, No tenderness Extremities: No clubbing, No cyanosis Skin: No rashes, No breakdown Labs LABS Laboratory Tests Test 05/24/18 09:01 05/24/18 10:49 05/24/18 14:40 05/24/18 16:46 Glucose (Fingerstick) 132 mg/dL (70-99) 125 mg/dL (70-99) 98 mg/dL (70-99) White Blood Count 9.9 x10^3/uL (4.0-11.0) Red Blood Count 2.75 x10^6/uL (3.50-5.40) Hemoglobin 9.0 g/dL (12.0-15.5) Hematocrit 26.4 % (36.0-47.0) Mean Corpuscular Volume 96 fL (79-100) Mean Corpuscular Hemoglobin 33 pg (25-35) Mean Corpuscular Hemoglobin Concent 34 g/dL (31-37) Red Cell Distribution Width 16.6 % (11.5-14.5) Platelet Count 126 x10^3/uL (140-400) Test 05/24/18 20:39 05/25/18 04:56 05/25/18 07:35 Glucose (Fingerstick) 92 mg/dL (70-99) 98 mg/dL (70-99) Hemoglobin 7.8 g/dL (12.0-15.5) Hematocrit 23.1 % (36.0-47.0) Mean Corpuscular Hemoglobin Concent 34 g/dL (31-37) Comment Review of Relevant I have reviewed the following items cynthia (where applicable) has been applied. Labs Laboratory Tests Test 05/23/18 11:45 05/23/18 12:25 05/23/18 17:28 05/23/18 20:26 Hemoglobin 9.6 g/dL (12.0-15.5) Hematocrit 28.2 % (36.0-47.0) Mean Corpuscular Hemoglobin Concent 34 g/dL (31-37) Glucose (Fingerstick) 131 mg/dL (70-99) 150 mg/dL (70-99) 133 mg/dL (70-99) Test 05/24/18 06:47 05/24/18 09:01 05/24/18 10:49 05/24/18 14:40 Hemoglobin 9.0 g/dL (12.0-15.5) 9.0 g/dL (12.0-15.5) Hematocrit 26.2 % (36.0-47.0) 26.4 % (36.0-47.0) Mean Corpuscular Hemoglobin Concent 34 g/dL (31-37) 34 g/dL (31-37) Glucose (Fingerstick) 132 mg/dL (70-99) 125 mg/dL (70-99) White Blood Count 9.9 x10^3/uL (4.0-11.0) Red Blood Count 2.75 x10^6/uL (3.50-5.40) Mean Corpuscular Volume 96 fL (79-100) Mean Corpuscular Hemoglobin 33 pg (25-35) Red Cell Distribution Width 16.6 % (11.5-14.5) Platelet Count 126 x10^3/uL (140-400) Test 05/24/18 16:46 05/24/18 20:39 05/25/18 04:56 05/25/18 07:35 Glucose (Fingerstick) 98 mg/dL (70-99) 92 mg/dL (70-99) 98 mg/dL (70-99) Hemoglobin 7.8 g/dL (12.0-15.5) Hematocrit 23.1 % (36.0-47.0) Mean Corpuscular Hemoglobin Concent 34 g/dL (31-37) Laboratory Tests Test 05/24/18 09:01 05/24/18 10:49 05/24/18 14:40 05/24/18 16:46 Glucose (Fingerstick) 132 mg/dL (70-99) 125 mg/dL (70-99) 98 mg/dL (70-99) White Blood Count 9.9 x10^3/uL (4.0-11.0) Red Blood Count 2.75 x10^6/uL (3.50-5.40) Hemoglobin 9.0 g/dL (12.0-15.5) Hematocrit 26.4 % (36.0-47.0) Mean Corpuscular Volume 96 fL (79-100) Mean Corpuscular Hemoglobin 33 pg (25-35) Mean Corpuscular Hemoglobin Concent 34 g/dL (31-37) Red Cell Distribution Width 16.6 % (11.5-14.5) Platelet Count 126 x10^3/uL (140-400) Test 05/24/18 20:39 05/25/18 04:56 05/25/18 07:35 Glucose (Fingerstick) 92 mg/dL (70-99) 98 mg/dL (70-99) Hemoglobin 7.8 g/dL (12.0-15.5) Hematocrit 23.1 % (36.0-47.0) Mean Corpuscular Hemoglobin Concent 34 g/dL (31-37) Medications Current Medications Sodium Chloride 1,000 ml @ 100 mls/hr Q10H IV Last administered on 05/23/18at 03:07; Start 05/20/18 at 21:30; Stop 05/23/18 at 11:58; Status DC Pantoprazole Sodium (PROTONIX VIAL for IV PUSH) 40 mg DAILYAC IVP ; Start at 07:30; Stop 05/21/18 at 13:41; Status DC Ondansetron HCl (Zofran) 4 mg PRN Q6HRS PRN IV NAUSEA/VOMITING Last administered on 05/23/18at 16:59; Start 05/20/18 at 21:30 Acetaminophen (Tylenol) 650 mg PRN Q6HRS PRN PO MILD PAIN; Start 05/20/18 at 21 :30; Stop 05/23/18 at 11:35; Status DC Morphine Sulfate (Morphine Sulfate) 2 mg PRN Q2HR PRN IV PAIN; Start 05/20/18 at 21:30 Pantoprazole Sodium 80 mg/ Sodium Chloride 100 ml @ 10 mls/hr Q10H IV Last administered on 05/23/18at 09:29; Start 05/20/18 at 22:00; Stop 05/23/18 at 10:19 ; Status DC Pantoprazole Sodium (PROTONIX VIAL for IV PUSH) 80 mg 1X ONCE IVP Last administered on 05/20/18at 22:27; Start 05/20/18 at 22:00; Stop 05/20/18 at 22:01 ; Status DC Heparin Sodium (Porcine) (HEPARIN for NUC MED) 100 unit 1X ONCE IV Last administered on 05/21/18at 10:30; Start 05/21/18 at 10:30; Stop 05/21/18 at 10:31 ; Status DC Sodium Chloride 1,000 ml @ 1,000 mls/hr 1X ONCE IV Last administered on at 10:38; Start 05/21/18 at 10:45; Stop 05/21/18 at 11:44; Status DC Levothyroxine Sodium 25 mcg/ Sodium Chloride 5 ml @ 100 mls/hr DAILY IVP Last administered on 05/23/18at 09:29; Start 05/21/18 at 13:00; Stop 05/23/18 at 11:33 ; Status DC Insulin Human Lispro (HumaLOG) 0-5 UNITS TIDWMEALS SQ ; Start 05/21/18 at 17:00 Dextrose (Dextrose 50%-Water Syringe) 12.5 gm PRN Q15MIN PRN IV SEE COMMENTS; Start 05/21/18 at 13:00 Sodium Monofluorophosphate (Fleet Adult) 133 ml 1X ONCE SD Last administered on 05/21/18at 13:58; Start 05/21/18 at 13:15; Stop 05/21/18 at 13:20; Status DC Sodium Monofluorophosphate (Fleet Adult) 133 ml 1X ONCE SD Last administered on 05/21/18at 13:55; Start 05/21/18 at 13:15; Stop 05/21/18 at 13:26; Status DC Midazolam HCl (Versed) 5 mg STK-MED ONCE .ROUTE ; Start 05/21/18 at 14:11; Stop 05/21/18 at 14:12; Status DC Fentanyl Citrate (Fentanyl 2ml Vial) 100 mcg STK-MED ONCE .ROUTE ; Start at 14:12; Stop 05/21/18 at 14:13; Status DC Epinephrine HCl (Adrenalin) 1 mg STK-MED ONCE .ROUTE ; Start 05/21/18 at 14:46; Stop 05/21/18 at 14:47; Status DC Epinephrine HCl (EPINEPHrine SYRINGE) 1 mg STK-MED ONCE .ROUTE ; Start 05/21/18 at 14:47; Stop 05/21/18 at 14:48; Status DC Fentanyl Citrate (Fentanyl 2ml Vial) 100 mcg STK-MED ONCE IV Last administered on 05/21/18at 14:50; Start 05/21/18 at 14:50; Stop 05/21/18 at 15:55; Status DC Midazolam HCl (Versed) 5 mg STK-MED ONCE IV Last administered on 05/21/18at 14: 51; Start 05/21/18 at 14:51; Stop 05/21/18 at 15:55; Status DC Midazolam HCl (Versed) 5 mg STK-MED ONCE IV Last administered on 05/21/18at 14: 52; Start 05/21/18 at 14:52; Stop 05/21/18 at 15:55; Status DC Fentanyl Citrate (Fentanyl 2ml Vial) 100 mcg STK-MED ONCE IV Last administered on 05/21/18at 14:54; Start 05/21/18 at 14:54; Stop 05/21/18 at 15:55; Status DC Midazolam HCl (Versed) 5 mg STK-MED ONCE IV Last administered on 05/21/18at 14: 56; Start 05/21/18 at 14:56; Stop 05/21/18 at 15:55; Status DC Midazolam HCl (Versed) 5 mg STK-MED ONCE IV Last administered on 05/21/18at 15: 02; Start 05/21/18 at 15:02; Stop 05/21/18 at 15:55; Status DC Iohexol (Omnipaque 300 Mg/ml) 90 ml 1X ONCE IV ; Start 05/21/18 at 17:15; Stop 05/21/18 at 17:17; Status DC Sodium Cl/Sod Bicarb/Potass Cl/ PEG (Golytely) 4,000 ml 1X ONCE PO Last administered on 05/21/18at 19:33; Start 05/21/18 at 18:30; Stop 05/21/18 at 18:31 ; Status DC Propofol 40 ml @ As Directed STK-MED ONCE IV ; Start 05/22/18 at 12:33; Stop at 12:34; Status DC Lidocaine/Sodium Bicarbonate (Buffered Lidocaine 1%) 3 ml STK-MED ONCE .ROUTE ; Start 05/22/18 at 15:01; Stop 05/22/18 at 15:02; Status DC Iohexol (Omnipaque 240 Mg/ml) 50 ml STK-MED ONCE .ROUTE ; Start 05/22/18 at 15: 01; Stop 05/22/18 at 15:02; Status DC Iohexol (Omnipaque 300 Mg/ml) 100 ml STK-MED ONCE .ROUTE ; Start 05/22/18 at 15: 01; Stop 05/22/18 at 15:02; Status DC Heparin Sodium/ Sodium Chloride 1,000 ml @ As Directed STK-MED ONCE .ROUTE ; Start 05/22/18 at 15:01; Stop 05/22/18 at 15:02; Status DC Midazolam HCl (Versed) 2 mg STK-MED ONCE .ROUTE ; Start 05/22/18 at 15:35; Stop 05/22/18 at 15:36; Status DC Fentanyl Citrate (Fentanyl 2ml Vial) 100 mcg STK-MED ONCE .ROUTE ; Start at 15:36; Stop 05/22/18 at 15:37; Status DC Heparin Sodium/ Sodium Chloride (HEPARIN for ARTERIAL LINE FLUSH) 1,000 unit 1X ONCE IART Last administered on 05/22/18at 17:40; Start 05/22/18 at 16:45; Stop 05/22/18 at 16:46; Status DC Lidocaine/Sodium Bicarbonate (Buffered Lidocaine 1%) 3 ml 1X ONCE IJ Last administered on 05/22/18at 17:40; Start 05/22/18 at 16:45; Stop 05/22/18 at 16:46 ; Status DC Midazolam HCl (Versed) 2 mg 1X ONCE IV Last administered on 05/22/18at 17:39; Start 05/22/18 at 16:45; Stop 05/22/18 at 16:46; Status DC Fentanyl Citrate (Fentanyl 2ml Vial) 100 mcg 1X ONCE IV Last administered on 05/22/18at 17:39; Start 05/22/18 at 16:45; Stop 05/22/18 at 16:46; Status DC Iohexol (Omnipaque 300 Mg/ml) 100 ml 1X ONCE IART Last administered on at 17:39; Start 05/22/18 at 16:45; Stop 05/22/18 at 16:46; Status DC Iohexol (Omnipaque 240 Mg/ml) 50 ml 1X ONCE IART Last administered on at 17:40; Start 05/22/18 at 16:45; Stop 05/22/18 at 16:46; Status DC Info (CONTRAST GIVEN -- Rx MONITORING) 1 each PRN DAILY PRN MC SEE COMMENTS; Start 05/22/18 at 17:00; Stop 05/24/18 at 16:59; Status DC Midazolam HCl (Versed) 2 mg STK-MED ONCE .ROUTE ; Start 05/22/18 at 16:45; Stop 05/22/18 at 16:46; Status DC Fentanyl Citrate (Fentanyl 2ml Vial) 100 mcg STK-MED ONCE .ROUTE ; Start at 16:46; Stop 05/22/18 at 16:47; Status DC Iohexol (Omnipaque 300 Mg/ml) 100 ml STK-MED ONCE .ROUTE ; Start 05/22/18 at 16: 51; Stop 05/22/18 at 16:52; Status DC Epinephrine HCl (EPINEPHrine SYRINGE) 1 mg STK-MED ONCE .ROUTE ; Start 05/21/18 at 14:00; Stop 05/23/18 at 07:59; Status DC Fentanyl Citrate (Fentanyl 2ml Vial) 100 mcg STK-MED ONCE .ROUTE ; Start at 14:00; Stop 05/23/18 at 07:59; Status DC Midazolam HCl (Versed) 5 mg STK-MED ONCE .ROUTE ; Start 05/21/18 at 14:00; Stop 05/23/18 at 07:59; Status DC Pantoprazole Sodium (Protonix) 40 mg DAILYAC PO Last administered on at 08:04; Start 05/24/18 at 07:30 Acetaminophen (Tylenol) 500 mg PRN Q6HRS PRN PO MILD PAIN / TEMP; Start at 11:45 Levothyroxine Sodium (Synthroid) 50 mcg DAILY06 PO Last administered on at 06:17; Start 05/24/18 at 06:00 Vitamin D (Vitamin D3) 3,000 unit DAILY PO Last administered on 05/25/18at 08: 03; Start 05/24/18 at 09:00 Non-Formulary Medication (Ascorbate Calcium/ Bioflavonoid (Sugey-C 1,000 Mg Tablet)) 1 each DAILY PO ; Start 05/24/18 at 09:00; Status UNV Non-Formulary Medication (Biotin ) 10,000 mcg DAILY PO ; Start 05/24/18 at 09:00 ; Status UNV Estradiol (Estrace) 2 mg DAILY PO Last administered on 05/25/18at 08:04; Start 05/24/18 at 09:00 Glyburide (Diabeta) 2.5 mg DAILY PO Last administered on 05/25/18at 08:04; Start 05/24/18 at 09:00 Metformin HCl (Glucophage) 1,000 mg BIDWMEALS PO ; Start 05/24/18 at 17:00 Active Scripts Active [Pantoprazole] 40 MG Tablet.dr 40 Mg PO DAILYAC Reported Vitamin D3 (Cholecalciferol (Vitamin D3)) 1,000 Unit Tablet 3 Tab PO DAILY Metformin Hcl 1,000 Mg Tablet 1,000 Mg PO BID Glyburide 2.5 Mg Tablet 1 Tab PO DAILY Famotidine 40 Mg Tablet 40 Mg PO DAILY Levothyroxine Sodium 50 Mcg Tablet 50 Mcg PO DAILYAC Estrace (Estradiol) 2 Mg Tablet 2 Mg PO DAILY Biotin 10,000 Mcg Capsule 10,000 Mcg PO DAILY Sugey-C 1,000 Mg Tablet (Ascorbate Calcium/Bioflavonoid) 1 Each Tablet 1 Each PO DAILY Vitals/I & O Vital Sign - Last 24 Hours 05/24/18 05/24/18 05/24/18 05/24/18 11:00 15:00 19:00 19:49 Temp 97.5 97.9 97.9 97.5 97.9 97.9 Pulse 85 86 98 Resp 18 16 18 B/P (MAP) 118/40 (66) 136/53 (80) 151/68 (95) Pulse Ox 96 93 94 O2 Delivery Nasal Cannula Nasal Cannula Nasal Cannula Nasal Cannula O2 Flow Rate 3.0 3.0 05/24/18 05/25/18 23:00 07:00 Temp 96.4 98.2 96.4 98.2 Pulse 94 96 Resp 18 18 B/P (MAP) 121/58 (79) 140/59 (86) Pulse Ox 99 95 O2 Delivery Nasal Cannula Nasal Cannula O2 Flow Rate 3.0 3.0 Intake and Output 05/24/18 05/24/18 05/25/18 15:00 23:00 07:00 Intake Total 300 ml Balance 300 ml FADI MAX MD May 25, 2018 08:51
[2018-05-25 11:00] VITALS: BP 144/60
--- NOTE | 2018-05-25 11:46 | PDOC ---
Subjective: Subjective: Not encouraged that she's still seeing blood. Still on clears, doesn't want more than that. Objective: Objective: Reviewed w/ RN - passed some small red clots this morning. Vital Signs: Vital Signs Date Time Temp Pulse Resp B/P (MAP) Pulse Ox O2 Delivery O2 Flow Rate FiO2 05/25/18 08:10 Nasal Cannula 2.0 05/25/18 07:00 98.2 96 18 140/59 (86) 95 98.2 Labs: Laboratory Tests Test 05/24/18 14:40 05/24/18 16:46 05/24/18 20:39 05/25/18 04:56 White Blood Count 9.9 x10^3/uL Red Blood Count 2.75 x10^6/uL Hemoglobin 9.0 g/dL 7.8 g/dL Hematocrit 26.4 % 23.1 % Mean Corpuscular Volume 96 fL Mean Corpuscular Hemoglobin 33 pg Mean Corpuscular Hemoglobin Concent 34 g/dL 34 g/dL Red Cell Distribution Width 16.6 % Platelet Count 126 x10^3/uL Glucose (Fingerstick) 98 mg/dL 92 mg/dL Test 05/25/18 07:35 Glucose (Fingerstick) 98 mg/dL PE: GEN: NAD LUNGS: CTAB HEART: RRR ABD: S/ND/NT NEURO/PSYCH: A & O 3 A/P: GI bleed - s/p EGD, colonoscopy x 2 (diverticulosis), and IR coil to left colon 05/22 Anemia - Hgb 9 to 7.8 today -- She wants to continue clears. Surgery following. JULIO CESAR RENTERIA May 25, 2018 11:46
[2018-05-25 12:24] LABS: HEMATOCRIT 25.8 % (36.0-47.0); HEMOGLOBIN 8.9 g/dL (12.0-15.5); RED BLOOD COUNT 2.69 x10^6/uL (3.50-5.40); WHITE BLOOD COUNT 8.1 x10^3/uL (4.0-11.0)
[2018-05-25 14:52] VITALS: BP 132/67
[2018-05-25 19:00] VITALS: BP 187/81
[2018-05-25 23:00] VITALS: BP 203/81
[2018-05-25 23:30] VITALS: BP 138/85
[2018-05-26 03:00] VITALS: BP 126/58
[2018-05-26 05:06] LABS: BASO % 0 % (0-3); EOS # 0.2 x10^3/uL (0.0-0.7); EOS % 3 % (0-3); HEMATOCRIT 22.7 % (36.0-47.0); HEMOGLOBIN 8.1 g/dL (12.0-15.5); LYMPH # 1.6 x10^3/uL (1.0-4.8); LYMPH % 23 % (24-48); MEAN CORPUSCULAR HEMOGLOBIN 34 pg (25-35); MEAN CORPUSCULAR HGB CONC 36 g/dL (31-37); MEAN CORPUSCULAR VOLUME 95 fL (79-100); MONO # 0.8 x10^3/uL (0.0-1.1); MONO % 12 % (0-9); NEUT # 4.3 x10^3uL (1.8-7.7); NEUT % 62 % (31-73); PLATELET COUNT 145 x10^3/uL (140-400); RED BLOOD COUNT 2.38 x10^6/uL (3.50-5.40); RED CELL DISTRIBUTION WIDTH 15.5 % (11.5-14.5)
[2018-05-26] MEDS: LEVOTHYROXINE 50 MCG TABLET PO SCH (05:25)
[2018-05-26 05:59] LABS: ALBUMIN 2.1 g/dL (3.4-5.0); ALBUMIN/GLOBULIN RATIO 0.7 (1.0-1.7); CALCIUM 7.7 mg/dL (8.5-10.1); CREATININE 0.6 mg/dL (0.6-1.0); GFR 97.2; POTASSIUM 3.5 mmol/L (3.5-5.1); TOTAL BILIRUBIN 0.3 mg/dL (0.2-1.0); TOTAL PROTEIN 5.1 g/dL (6.4-8.2)
[2018-05-26 07:00] VITALS: BP 158/69
[2018-05-26] MEDS: glyBURIDE 5 MG TABLET PO SCH (07:38)
[2018-05-26] MEDS: metFORMIN 500 MG TABLET PO SCH ×2 (07:38→07:43)
[2018-05-26] MEDS: CHOLECALCIFEROL (VITAMIN D3) 1,000 UNIT TABLET PO SCH (07:39)
[2018-05-26] MEDS: PANTOPRAZOLE 40 MG TABLET.DR. PO SCH (07:39)
[2018-05-26] MEDS: ESTRADIOL 1 MG TABLET. PO SCH (07:40)
[2018-05-26] MEDS: INSULIN LISPRO 300 UNITS/3 ML INSULN.PEN. SQ SCH ×3 (08:00→17:00)
--- NOTE | 2018-05-26 09:47 | PDOC ---
REECE RUSSELL TIMBER SURVEYOR 05/26/18 0947: SURGICAL PROGRESS NOTE Subjective tolerating liquids had some dark blood in stool yesterday, none today so far Vital Signs Vital Signs Date Time Temp Pulse Resp B/P (MAP) Pulse Ox O2 Delivery O2 Flow Rate FiO2 05/26/18 07:00 97.7 92 18 158/69 (98) 96 Nasal Cannula 3.0 97.7 I&O Intake and Output 05/26/18 07:00 Intake Total 420 ml Balance 420 ml Intake Oral 420 ml # Voids 3 General: Alert, Oriented X3, Cooperative, No acute distress Abdomen: Soft, No tenderness Labs Laboratory Tests Test 05/24/18 10:49 05/24/18 14:40 05/24/18 16:46 05/24/18 20:39 Glucose (Fingerstick) 125 mg/dL (70-99) 98 mg/dL (70-99) 92 mg/dL (70-99) White Blood Count 9.9 x10^3/uL (4.0-11.0) Red Blood Count 2.75 x10^6/uL (3.50-5.40) Hemoglobin 9.0 g/dL (12.0-15.5) Hematocrit 26.4 % (36.0-47.0) Mean Corpuscular Volume 96 fL (79-100) Mean Corpuscular Hemoglobin 33 pg (25-35) Mean Corpuscular Hemoglobin Concent 34 g/dL (31-37) Red Cell Distribution Width 16.6 % (11.5-14.5) Platelet Count 126 x10^3/uL (140-400) Test 05/25/18 04:56 05/25/18 07:35 05/25/18 12:10 05/25/18 20:48 Hemoglobin 7.8 g/dL (12.0-15.5) 8.9 g/dL (12.0-15.5) Hematocrit 23.1 % (36.0-47.0) 25.8 % (36.0-47.0) Mean Corpuscular Hemoglobin Concent 34 g/dL (31-37) 35 g/dL (31-37) Glucose (Fingerstick) 98 mg/dL (70-99) 100 mg/dL (70-99) 93 mg/dL (70-99) White Blood Count 8.1 x10^3/uL (4.0-11.0) Red Blood Count 2.69 x10^6/uL (3.50-5.40) Mean Corpuscular Volume 96 fL (79-100) Mean Corpuscular Hemoglobin 33 pg (25-35) Red Cell Distribution Width 16.0 % (11.5-14.5) Platelet Count 141 x10^3/uL (140-400) Test 05/26/18 04:15 05/26/18 08:30 White Blood Count 7.0 x10^3/uL (4.0-11.0) Red Blood Count 2.38 x10^6/uL (3.50-5.40) Hemoglobin 8.1 g/dL (12.0-15.5) Hematocrit 22.7 % (36.0-47.0) Mean Corpuscular Volume 95 fL (79-100) Mean Corpuscular Hemoglobin 34 pg (25-35) Mean Corpuscular Hemoglobin Concent 36 g/dL (31-37) Red Cell Distribution Width 15.5 % (11.5-14.5) Platelet Count 145 x10^3/uL (140-400) Neutrophils (%) (Auto) 62 % (31-73) Lymphocytes (%) (Auto) 23 % (24-48) Monocytes (%) (Auto) 12 % (0-9) Eosinophils (%) (Auto) 3 % (0-3) Basophils (%) (Auto) 0 % (0-3) Neutrophils # (Auto) 4.3 x10^3uL (1.8-7.7) Lymphocytes # (Auto) 1.6 x10^3/uL (1.0-4.8) Monocytes # (Auto) 0.8 x10^3/uL (0.0-1.1) Eosinophils # (Auto) 0.2 x10^3/uL (0.0-0.7) Basophils # (Auto) 0.0 x10^3/uL (0.0-0.2) Sodium Level 144 mmol/L (136-145) Potassium Level 3.5 mmol/L (3.5-5.1) Chloride Level 106 mmol/L (98-107) Carbon Dioxide Level 29 mmol/L (21-32) Anion Gap 9 (6-14) Blood Urea Nitrogen 5 mg/dL (7-20) Creatinine 0.6 mg/dL (0.6-1.0) Estimated GFR (Cockcroft-Gault) 97.2 BUN/Creatinine Ratio 8 (6-20) Glucose Level 80 mg/dL (70-99) Calcium Level 7.7 mg/dL (8.5-10.1) Total Bilirubin 0.3 mg/dL (0.2-1.0) Aspartate Amino Transf (AST/SGOT) 11 U/L (15-37) Alanine Aminotransferase (ALT/SGPT) 12 U/L (14-59) Alkaline Phosphatase 43 U/L (46-116) Total Protein 5.1 g/dL (6.4-8.2) Albumin 2.1 g/dL (3.4-5.0) Albumin/Globulin Ratio 0.7 (1.0-1.7) Glucose (Fingerstick) 97 mg/dL (70-99) Laboratory Tests Test 05/25/18 12:10 05/25/18 20:48 05/26/18 04:15 05/26/18 08:30 White Blood Count 8.1 x10^3/uL (4.0-11.0) 7.0 x10^3/uL (4.0-11.0) Red Blood Count 2.69 x10^6/uL (3.50-5.40) 2.38 x10^6/uL (3.50-5.40) Hemoglobin 8.9 g/dL (12.0-15.5) 8.1 g/dL (12.0-15.5) Hematocrit 25.8 % (36.0-47.0) 22.7 % (36.0-47.0) Mean Corpuscular Volume 96 fL (79-100) 95 fL (79-100) Mean Corpuscular Hemoglobin 33 pg (25-35) 34 pg (25-35) Mean Corpuscular Hemoglobin Concent 35 g/dL (31-37) 36 g/dL (31-37) Red Cell Distribution Width 16.0 % (11.5-14.5) 15.5 % (11.5-14.5) Platelet Count 141 x10^3/uL (140-400) 145 x10^3/uL (140-400) Glucose (Fingerstick) 100 mg/dL (70-99) 93 mg/dL (70-99) 97 mg/dL (70-99) Neutrophils (%) (Auto) 62 % (31-73) Lymphocytes (%) (Auto) 23 % (24-48) Monocytes (%) (Auto) 12 % (0-9) Eosinophils (%) (Auto) 3 % (0-3) Basophils (%) (Auto) 0 % (0-3) Neutrophils # (Auto) 4.3 x10^3uL (1.8-7.7) Lymphocytes # (Auto) 1.6 x10^3/uL (1.0-4.8) Monocytes # (Auto) 0.8 x10^3/uL (0.0-1.1) Eosinophils # (Auto) 0.2 x10^3/uL (0.0-0.7) Basophils # (Auto) 0.0 x10^3/uL (0.0-0.2) Sodium Level 144 mmol/L (136-145) Potassium Level 3.5 mmol/L (3.5-5.1) Chloride Level 106 mmol/L (98-107) Carbon Dioxide Level 29 mmol/L (21-32) Anion Gap 9 (6-14) Blood Urea Nitrogen 5 mg/dL (7-20) Creatinine 0.6 mg/dL (0.6-1.0) Estimated GFR (Cockcroft-Gault) 97.2 BUN/Creatinine Ratio 8 (6-20) Glucose Level 80 mg/dL (70-99) Calcium Level 7.7 mg/dL (8.5-10.1) Total Bilirubin 0.3 mg/dL (0.2-1.0) Aspartate Amino Transf (AST/SGOT) 11 U/L (15-37) Alanine Aminotransferase (ALT/SGPT) 12 U/L (14-59) Alkaline Phosphatase 43 U/L (46-116) Total Protein 5.1 g/dL (6.4-8.2) Albumin 2.1 g/dL (3.4-5.0) Albumin/Globulin Ratio 0.7 (1.0-1.7) Problem List hgb improved stable no surgical plans WOODY SANCHEZ MD 05/26/18 9644: SURGICAL PROGRESS NOTE Assessment/Plan Agree with above, Hb stable after intervention; no surgical plans, please call if needed in the future REECE RUSSELL APRN May 26, 2018 09:47 WOODY SANCHEZ MD May 26, 2018 12:48
--- NOTE | 2018-05-26 10:43 | PDOC ---
Subjective: Subjective: Irritated - called 15 min ago to be helped to commode. Says no bleeding - passed brown stool yesterday. Anxious to go home but doesn't want to go too soon. Objective: Vital Signs: Vital Signs Date Time Temp Pulse Resp B/P (MAP) Pulse Ox O2 Delivery O2 Flow Rate FiO2 05/26/18 07:00 97.7 92 18 158/69 (98) 96 Nasal Cannula 3.0 97.7 Labs: Laboratory Tests Test 05/25/18 12:10 05/25/18 20:48 05/26/18 04:15 05/26/18 08:30 White Blood Count 8.1 x10^3/uL 7.0 x10^3/uL Red Blood Count 2.69 x10^6/uL 2.38 x10^6/uL Hemoglobin 8.9 g/dL 8.1 g/dL Hematocrit 25.8 % 22.7 % Mean Corpuscular Volume 96 fL 95 fL Mean Corpuscular Hemoglobin 33 pg 34 pg Mean Corpuscular Hemoglobin Concent 35 g/dL 36 g/dL Red Cell Distribution Width 16.0 % 15.5 % Platelet Count 141 x10^3/uL 145 x10^3/uL Glucose (Fingerstick) 100 mg/dL 93 mg/dL 97 mg/dL Neutrophils (%) (Auto) 62 % Lymphocytes (%) (Auto) 23 % Monocytes (%) (Auto) 12 % Eosinophils (%) (Auto) 3 % Basophils (%) (Auto) 0 % Neutrophils # (Auto) 4.3 x10^3uL Lymphocytes # (Auto) 1.6 x10^3/uL Monocytes # (Auto) 0.8 x10^3/uL Eosinophils # (Auto) 0.2 x10^3/uL Basophils # (Auto) 0.0 x10^3/uL Sodium Level 144 mmol/L Potassium Level 3.5 mmol/L Chloride Level 106 mmol/L Carbon Dioxide Level 29 mmol/L Anion Gap 9 Blood Urea Nitrogen 5 mg/dL Creatinine 0.6 mg/dL Estimated GFR (Cockcroft-Gault) 97.2 BUN/Creatinine Ratio 8 Glucose Level 80 mg/dL Calcium Level 7.7 mg/dL Total Bilirubin 0.3 mg/dL Aspartate Amino Transf (AST/SGOT) 11 U/L Alanine Aminotransferase (ALT/SGPT) 12 U/L Alkaline Phosphatase 43 U/L Total Protein 5.1 g/dL Albumin 2.1 g/dL Albumin/Globulin Ratio 0.7 PE: GEN: NAD LUNGS: NC HEART: RRR ABD: S/ND/NT NEURO/PSYCH: A & O 3 A/P: GI bleed - s/p EGD, colonoscopy x 2 (diverticulosis), and IR coil to left colon 05/22 Anemia - stable -- Spent 15 min in room - helped her to commode w/ walker, got a new brief, helped back to bed. Reports brown stool yesterday w/o bleeding. Has remained on clears - no surgical plans, so would ADAT and DC if tolerates. JULIO CESAR RENTERIA May 26, 2018 10:43
[2018-05-26 11:00] VITALS: BP 149/73
--- NOTE | 2018-05-26 11:59 | PDOC ---
PROGRESS NOTES Chief Complaint Chief Complaint AV mal, diverticular bleed s/p coiling by iR (04/22/18) acute anemia with gib DROP IN HGB hypotension with gib resolved dm2 controlled hld hypothyroidism EDEMA SEC LOW ALBUMIN History of Present Illness History of Present Illness Some blood-tinged stool Hemodynamically stable Hemoglobin did drop to 9 from 7.6 in the last 12- 48 hrs. No abdominal pain Plan: Maintain clear for now, await GI Rounds H&H AT 1 PM Vitals Vitals Vital Signs Date Time Temp Pulse Resp B/P (MAP) Pulse Ox O2 Delivery O2 Flow Rate FiO2 05/26/18 08:00 Nasal Cannula 3.0 05/26/18 07:00 97.7 92 18 158/69 (98) 96 97.7 Physical Exam General: Alert, Oriented X3, Cooperative, No acute distress Heart: Regular rate, Normal S1, Normal S2 Lungs: Clear, Wheezing Abdomen: Normal bowel sounds, Soft, No tenderness, No hepatosplenomegaly Extremities: No clubbing, No cyanosis, Other (MILD ANKLE EDEMA) Skin: No rashes, No breakdown Labs LABS Laboratory Tests Test 05/25/18 12:10 05/25/18 20:48 05/26/18 04:15 05/26/18 08:30 White Blood Count 8.1 x10^3/uL (4.0-11.0) 7.0 x10^3/uL (4.0-11.0) Red Blood Count 2.69 x10^6/uL (3.50-5.40) 2.38 x10^6/uL (3.50-5.40) Hemoglobin 8.9 g/dL (12.0-15.5) 8.1 g/dL (12.0-15.5) Hematocrit 25.8 % (36.0-47.0) 22.7 % (36.0-47.0) Mean Corpuscular Volume 96 fL (79-100) 95 fL (79-100) Mean Corpuscular Hemoglobin 33 pg (25-35) 34 pg (25-35) Mean Corpuscular Hemoglobin Concent 35 g/dL (31-37) 36 g/dL (31-37) Red Cell Distribution Width 16.0 % (11.5-14.5) 15.5 % (11.5-14.5) Platelet Count 141 x10^3/uL (140-400) 145 x10^3/uL (140-400) Glucose (Fingerstick) 100 mg/dL (70-99) 93 mg/dL (70-99) 97 mg/dL (70-99) Neutrophils (%) (Auto) 62 % (31-73) Lymphocytes (%) (Auto) 23 % (24-48) Monocytes (%) (Auto) 12 % (0-9) Eosinophils (%) (Auto) 3 % (0-3) Basophils (%) (Auto) 0 % (0-3) Neutrophils # (Auto) 4.3 x10^3uL (1.8-7.7) Lymphocytes # (Auto) 1.6 x10^3/uL (1.0-4.8) Monocytes # (Auto) 0.8 x10^3/uL (0.0-1.1) Eosinophils # (Auto) 0.2 x10^3/uL (0.0-0.7) Basophils # (Auto) 0.0 x10^3/uL (0.0-0.2) Sodium Level 144 mmol/L (136-145) Potassium Level 3.5 mmol/L (3.5-5.1) Chloride Level 106 mmol/L (98-107) Carbon Dioxide Level 29 mmol/L (21-32) Anion Gap 9 (6-14) Blood Urea Nitrogen 5 mg/dL (7-20) Creatinine 0.6 mg/dL (0.6-1.0) Estimated GFR (Cockcroft-Gault) 97.2 BUN/Creatinine Ratio 8 (6-20) Glucose Level 80 mg/dL (70-99) Calcium Level 7.7 mg/dL (8.5-10.1) Total Bilirubin 0.3 mg/dL (0.2-1.0) Aspartate Amino Transf (AST/SGOT) 11 U/L (15-37) Alanine Aminotransferase (ALT/SGPT) 12 U/L (14-59) Alkaline Phosphatase 43 U/L (46-116) Total Protein 5.1 g/dL (6.4-8.2) Albumin 2.1 g/dL (3.4-5.0) Albumin/Globulin Ratio 0.7 (1.0-1.7) Comment Review of Relevant I have reviewed the following items cynthia (where applicable) has been applied. Labs Laboratory Tests Test 05/24/18 14:40 05/24/18 16:46 05/24/18 20:39 05/25/18 04:56 White Blood Count 9.9 x10^3/uL (4.0-11.0) Red Blood Count 2.75 x10^6/uL (3.50-5.40) Hemoglobin 9.0 g/dL (12.0-15.5) 7.8 g/dL (12.0-15.5) Hematocrit 26.4 % (36.0-47.0) 23.1 % (36.0-47.0) Mean Corpuscular Volume 96 fL (79-100) Mean Corpuscular Hemoglobin 33 pg (25-35) Mean Corpuscular Hemoglobin Concent 34 g/dL (31-37) 34 g/dL (31-37) Red Cell Distribution Width 16.6 % (11.5-14.5) Platelet Count 126 x10^3/uL (140-400) Glucose (Fingerstick) 98 mg/dL (70-99) 92 mg/dL (70-99) Test 05/25/18 07:35 05/25/18 12:10 05/25/18 20:48 05/26/18 04:15 Glucose (Fingerstick) 98 mg/dL (70-99) 100 mg/dL (70-99) 93 mg/dL (70-99) White Blood Count 8.1 x10^3/uL (4.0-11.0) 7.0 x10^3/uL (4.0-11.0) Red Blood Count 2.69 x10^6/uL (3.50-5.40) 2.38 x10^6/uL (3.50-5.40) Hemoglobin 8.9 g/dL (12.0-15.5) 8.1 g/dL (12.0-15.5) Hematocrit 25.8 % (36.0-47.0) 22.7 % (36.0-47.0) Mean Corpuscular Volume 96 fL (79-100) 95 fL (79-100) Mean Corpuscular Hemoglobin 33 pg (25-35) 34 pg (25-35) Mean Corpuscular Hemoglobin Concent 35 g/dL (31-37) 36 g/dL (31-37) Red Cell Distribution Width 16.0 % (11.5-14.5) 15.5 % (11.5-14.5) Platelet Count 141 x10^3/uL (140-400) 145 x10^3/uL (140-400) Neutrophils (%) (Auto) 62 % (31-73) Lymphocytes (%) (Auto) 23 % (24-48) Monocytes (%) (Auto) 12 % (0-9) Eosinophils (%) (Auto) 3 % (0-3) Basophils (%) (Auto) 0 % (0-3) Neutrophils # (Auto) 4.3 x10^3uL (1.8-7.7) Lymphocytes # (Auto) 1.6 x10^3/uL (1.0-4.8) Monocytes # (Auto) 0.8 x10^3/uL (0.0-1.1) Eosinophils # (Auto) 0.2 x10^3/uL (0.0-0.7) Basophils # (Auto) 0.0 x10^3/uL (0.0-0.2) Sodium Level 144 mmol/L (136-145) Potassium Level 3.5 mmol/L (3.5-5.1) Chloride Level 106 mmol/L (98-107) Carbon Dioxide Level 29 mmol/L (21-32) Anion Gap 9 (6-14) Blood Urea Nitrogen 5 mg/dL (7-20) Creatinine 0.6 mg/dL (0.6-1.0) Estimated GFR (Cockcroft-Gault) 97.2 BUN/Creatinine Ratio 8 (6-20) Glucose Level 80 mg/dL (70-99) Calcium Level 7.7 mg/dL (8.5-10.1) Total Bilirubin 0.3 mg/dL (0.2-1.0) Aspartate Amino Transf (AST/SGOT) 11 U/L (15-37) Alanine Aminotransferase (ALT/SGPT) 12 U/L (14-59) Alkaline Phosphatase 43 U/L (46-116) Total Protein 5.1 g/dL (6.4-8.2) Albumin 2.1 g/dL (3.4-5.0) Albumin/Globulin Ratio 0.7 (1.0-1.7) Test 05/26/18 08:30 Glucose (Fingerstick) 97 mg/dL (70-99) Laboratory Tests Test 05/25/18 12:10 05/25/18 20:48 05/26/18 04:15 05/26/18 08:30 White Blood Count 8.1 x10^3/uL (4.0-11.0) 7.0 x10^3/uL (4.0-11.0) Red Blood Count 2.69 x10^6/uL (3.50-5.40) 2.38 x10^6/uL (3.50-5.40) Hemoglobin 8.9 g/dL (12.0-15.5) 8.1 g/dL (12.0-15.5) Hematocrit 25.8 % (36.0-47.0) 22.7 % (36.0-47.0) Mean Corpuscular Volume 96 fL (79-100) 95 fL (79-100) Mean Corpuscular Hemoglobin 33 pg (25-35) 34 pg (25-35) Mean Corpuscular Hemoglobin Concent 35 g/dL (31-37) 36 g/dL (31-37) Red Cell Distribution Width 16.0 % (11.5-14.5) 15.5 % (11.5-14.5) Platelet Count 141 x10^3/uL (140-400) 145 x10^3/uL (140-400) Glucose (Fingerstick) 100 mg/dL (70-99) 93 mg/dL (70-99) 97 mg/dL (70-99) Neutrophils (%) (Auto) 62 % (31-73) Lymphocytes (%) (Auto) 23 % (24-48) Monocytes (%) (Auto) 12 % (0-9) Eosinophils (%) (Auto) 3 % (0-3) Basophils (%) (Auto) 0 % (0-3) Neutrophils # (Auto) 4.3 x10^3uL (1.8-7.7) Lymphocytes # (Auto) 1.6 x10^3/uL (1.0-4.8) Monocytes # (Auto) 0.8 x10^3/uL (0.0-1.1) Eosinophils # (Auto) 0.2 x10^3/uL (0.0-0.7) Basophils # (Auto) 0.0 x10^3/uL (0.0-0.2) Sodium Level 144 mmol/L (136-145) Potassium Level 3.5 mmol/L (3.5-5.1) Chloride Level 106 mmol/L (98-107) Carbon Dioxide Level 29 mmol/L (21-32) Anion Gap 9 (6-14) Blood Urea Nitrogen 5 mg/dL (7-20) Creatinine 0.6 mg/dL (0.6-1.0) Estimated GFR (Cockcroft-Gault) 97.2 BUN/Creatinine Ratio 8 (6-20) Glucose Level 80 mg/dL (70-99) Calcium Level 7.7 mg/dL (8.5-10.1) Total Bilirubin 0.3 mg/dL (0.2-1.0) Aspartate Amino Transf (AST/SGOT) 11 U/L (15-37) Alanine Aminotransferase (ALT/SGPT) 12 U/L (14-59) Alkaline Phosphatase 43 U/L (46-116) Total Protein 5.1 g/dL (6.4-8.2) Albumin 2.1 g/dL (3.4-5.0) Albumin/Globulin Ratio 0.7 (1.0-1.7) Medications Current Medications Sodium Chloride 1,000 ml @ 100 mls/hr Q10H IV Last administered on 05/23/18at 03:07; Start 05/20/18 at 21:30; Stop 05/23/18 at 11:58; Status DC Pantoprazole Sodium (PROTONIX VIAL for IV PUSH) 40 mg DAILYAC IVP ; Start at 07:30; Stop 05/21/18 at 13:41; Status DC Ondansetron HCl (Zofran) 4 mg PRN Q6HRS PRN IV NAUSEA/VOMITING Last administered on 05/23/18at 16:59; Start 05/20/18 at 21:30 Acetaminophen (Tylenol) 650 mg PRN Q6HRS PRN PO MILD PAIN; Start 05/20/18 at 21 :30; Stop 05/23/18 at 11:35; Status DC Morphine Sulfate (Morphine Sulfate) 2 mg PRN Q2HR PRN IV PAIN; Start 05/20/18 at 21:30 Pantoprazole Sodium 80 mg/ Sodium Chloride 100 ml @ 10 mls/hr Q10H IV Last administered on 05/23/18at 09:29; Start 05/20/18 at 22:00; Stop 05/23/18 at 10:19 ; Status DC Pantoprazole Sodium (PROTONIX VIAL for IV PUSH) 80 mg 1X ONCE IVP Last administered on 05/20/18at 22:27; Start 05/20/18 at 22:00; Stop 05/20/18 at 22:01 ; Status DC Heparin Sodium (Porcine) (HEPARIN for NUC MED) 100 unit 1X ONCE IV Last administered on 05/21/18at 10:30; Start 05/21/18 at 10:30; Stop 05/21/18 at 10:31 ; Status DC Sodium Chloride 1,000 ml @ 1,000 mls/hr 1X ONCE IV Last administered on at 10:38; Start 05/21/18 at 10:45; Stop 05/21/18 at 11:44; Status DC Levothyroxine Sodium 25 mcg/ Sodium Chloride 5 ml @ 100 mls/hr DAILY IVP Last administered on 05/23/18at 09:29; Start 05/21/18 at 13:00; Stop 05/23/18 at 11:33 ; Status DC Insulin Human Lispro (HumaLOG) 0-5 UNITS TIDWMEALS SQ ; Start 05/21/18 at 17:00 Dextrose (Dextrose 50%-Water Syringe) 12.5 gm PRN Q15MIN PRN IV SEE COMMENTS; Start 05/21/18 at 13:00 Sodium Monofluorophosphate (Fleet Adult) 133 ml 1X ONCE SD Last administered on 05/21/18at 13:58; Start 05/21/18 at 13:15; Stop 05/21/18 at 13:20; Status DC Sodium Monofluorophosphate (Fleet Adult) 133 ml 1X ONCE SD Last administered on 05/21/18at 13:55; Start 05/21/18 at 13:15; Stop 05/21/18 at 13:26; Status DC Midazolam HCl (Versed) 5 mg STK-MED ONCE .ROUTE ; Start 05/21/18 at 14:11; Stop 05/21/18 at 14:12; Status DC Fentanyl Citrate (Fentanyl 2ml Vial) 100 mcg STK-MED ONCE .ROUTE ; Start at 14:12; Stop 05/21/18 at 14:13; Status DC Epinephrine HCl (Adrenalin) 1 mg STK-MED ONCE .ROUTE ; Start 05/21/18 at 14:46; Stop 05/21/18 at 14:47; Status DC Epinephrine HCl (EPINEPHrine SYRINGE) 1 mg STK-MED ONCE .ROUTE ; Start 05/21/18 at 14:47; Stop 05/21/18 at 14:48; Status DC Fentanyl Citrate (Fentanyl 2ml Vial) 100 mcg STK-MED ONCE IV Last administered on 05/21/18at 14:50; Start 05/21/18 at 14:50; Stop 05/21/18 at 15:55; Status DC Midazolam HCl (Versed) 5 mg STK-MED ONCE IV Last administered on 05/21/18at 14: 51; Start 05/21/18 at 14:51; Stop 05/21/18 at 15:55; Status DC Midazolam HCl (Versed) 5 mg STK-MED ONCE IV Last administered on 05/21/18at 14: 52; Start 05/21/18 at 14:52; Stop 05/21/18 at 15:55; Status DC Fentanyl Citrate (Fentanyl 2ml Vial) 100 mcg STK-MED ONCE IV Last administered on 05/21/18at 14:54; Start 05/21/18 at 14:54; Stop 05/21/18 at 15:55; Status DC Midazolam HCl (Versed) 5 mg STK-MED ONCE IV Last administered on 05/21/18at 14: 56; Start 05/21/18 at 14:56; Stop 05/21/18 at 15:55; Status DC Midazolam HCl (Versed) 5 mg STK-MED ONCE IV Last administered on 05/21/18at 15: 02; Start 05/21/18 at 15:02; Stop 05/21/18 at 15:55; Status DC Iohexol (Omnipaque 300 Mg/ml) 90 ml 1X ONCE IV ; Start 05/21/18 at 17:15; Stop 05/21/18 at 17:17; Status DC Sodium Cl/Sod Bicarb/Potass Cl/ PEG (Golytely) 4,000 ml 1X ONCE PO Last administered on 05/21/18at 19:33; Start 05/21/18 at 18:30; Stop 05/21/18 at 18:31 ; Status DC Propofol 40 ml @ As Directed STK-MED ONCE IV ; Start 05/22/18 at 12:33; Stop at 12:34; Status DC Lidocaine/Sodium Bicarbonate (Buffered Lidocaine 1%) 3 ml STK-MED ONCE .ROUTE ; Start 05/22/18 at 15:01; Stop 05/22/18 at 15:02; Status DC Iohexol (Omnipaque 240 Mg/ml) 50 ml STK-MED ONCE .ROUTE ; Start 05/22/18 at 15: 01; Stop 05/22/18 at 15:02; Status DC Iohexol (Omnipaque 300 Mg/ml) 100 ml STK-MED ONCE .ROUTE ; Start 05/22/18 at 15: 01; Stop 05/22/18 at 15:02; Status DC Heparin Sodium/ Sodium Chloride 1,000 ml @ As Directed STK-MED ONCE .ROUTE ; Start 05/22/18 at 15:01; Stop 05/22/18 at 15:02; Status DC Midazolam HCl (Versed) 2 mg STK-MED ONCE .ROUTE ; Start 05/22/18 at 15:35; Stop 05/22/18 at 15:36; Status DC Fentanyl Citrate (Fentanyl 2ml Vial) 100 mcg STK-MED ONCE .ROUTE ; Start at 15:36; Stop 05/22/18 at 15:37; Status DC Heparin Sodium/ Sodium Chloride (HEPARIN for ARTERIAL LINE FLUSH) 1,000 unit 1X ONCE IART Last administered on 05/22/18at 17:40; Start 05/22/18 at 16:45; Stop 05/22/18 at 16:46; Status DC Lidocaine/Sodium Bicarbonate (Buffered Lidocaine 1%) 3 ml 1X ONCE IJ Last administered on 05/22/18at 17:40; Start 05/22/18 at 16:45; Stop 05/22/18 at 16:46 ; Status DC Midazolam HCl (Versed) 2 mg 1X ONCE IV Last administered on 05/22/18at 17:39; Start 05/22/18 at 16:45; Stop 05/22/18 at 16:46; Status DC Fentanyl Citrate (Fentanyl 2ml Vial) 100 mcg 1X ONCE IV Last administered on 05/22/18at 17:39; Start 05/22/18 at 16:45; Stop 05/22/18 at 16:46; Status DC Iohexol (Omnipaque 300 Mg/ml) 100 ml 1X ONCE IART Last administered on at 17:39; Start 05/22/18 at 16:45; Stop 05/22/18 at 16:46; Status DC Iohexol (Omnipaque 240 Mg/ml) 50 ml 1X ONCE IART Last administered on at 17:40; Start 05/22/18 at 16:45; Stop 05/22/18 at 16:46; Status DC Info (CONTRAST GIVEN -- Rx MONITORING) 1 each PRN DAILY PRN MC SEE COMMENTS; Start 05/22/18 at 17:00; Stop 05/24/18 at 16:59; Status DC Midazolam HCl (Versed) 2 mg STK-MED ONCE .ROUTE ; Start 05/22/18 at 16:45; Stop 05/22/18 at 16:46; Status DC Fentanyl Citrate (Fentanyl 2ml Vial) 100 mcg STK-MED ONCE .ROUTE ; Start at 16:46; Stop 05/22/18 at 16:47; Status DC Iohexol (Omnipaque 300 Mg/ml) 100 ml STK-MED ONCE .ROUTE ; Start 05/22/18 at 16: 51; Stop 05/22/18 at 16:52; Status DC Epinephrine HCl (EPINEPHrine SYRINGE) 1 mg STK-MED ONCE .ROUTE ; Start 05/21/18 at 14:00; Stop 05/23/18 at 07:59; Status DC Fentanyl Citrate (Fentanyl 2ml Vial) 100 mcg STK-MED ONCE .ROUTE ; Start at 14:00; Stop 05/23/18 at 07:59; Status DC Midazolam HCl (Versed) 5 mg STK-MED ONCE .ROUTE ; Start 05/21/18 at 14:00; Stop 05/23/18 at 07:59; Status DC Pantoprazole Sodium (Protonix) 40 mg DAILYAC PO Last administered on at 07:39; Start 05/24/18 at 07:30 Acetaminophen (Tylenol) 500 mg PRN Q6HRS PRN PO MILD PAIN / TEMP; Start at 11:45 Levothyroxine Sodium (Synthroid) 50 mcg DAILY06 PO Last administered on at 05:25; Start 05/24/18 at 06:00 Vitamin D (Vitamin D3) 3,000 unit DAILY PO Last administered on 05/26/18at 07: 39; Start 05/24/18 at 09:00 Non-Formulary Medication (Ascorbate Calcium/ Bioflavonoid (Sugey-C 1,000 Mg Tablet)) 1 each DAILY PO ; Start 05/24/18 at 09:00; Status UNV Non-Formulary Medication (Biotin ) 10,000 mcg DAILY PO ; Start 05/24/18 at 09:00 ; Status UNV Estradiol (Estrace) 2 mg DAILY PO Last administered on 05/26/18at 07:40; Start 05/24/18 at 09:00 Glyburide (Diabeta) 2.5 mg DAILY PO Last administered on 05/26/18at 07:38; Start 05/24/18 at 09:00 Metformin HCl (Glucophage) 1,000 mg BIDWMEALS PO ; Start 05/24/18 at 17:00 Active Scripts Active [Pantoprazole] 40 MG Tablet.dr 40 Mg PO DAILYAC Reported Vitamin D3 (Cholecalciferol (Vitamin D3)) 1,000 Unit Tablet 3 Tab PO DAILY Metformin Hcl 1,000 Mg Tablet 1,000 Mg PO BID Glyburide 2.5 Mg Tablet 1 Tab PO DAILY Famotidine 40 Mg Tablet 40 Mg PO DAILY Levothyroxine Sodium 50 Mcg Tablet 50 Mcg PO DAILYAC Estrace (Estradiol) 2 Mg Tablet 2 Mg PO DAILY Biotin 10,000 Mcg Capsule 10,000 Mcg PO DAILY Sugey-C 1,000 Mg Tablet (Ascorbate Calcium/Bioflavonoid) 1 Each Tablet 1 Each PO DAILY Vitals/I & O Vital Sign - Last 24 Hours 05/25/18 05/25/18 05/25/18 05/25/18 14:52 19:00 19:53 23:00 Temp 96.1 97.7 96.1 97.7 Pulse 90 111 Resp 18 18 B/P (MAP) 132/67 (88) 187/81 (116) () Pulse Ox 100 95 O2 Delivery Nasal Cannula Nasal Cannula Nasal Cannula Nasal Cannula O2 Flow Rate 3.0 3.0 3.0 05/25/18 05/26/18 05/26/18 05/26/18 23:30 03:00 07:00 08:00 Temp 97.6 97.7 97.6 97.7 Pulse 94 92 Resp 18 18 B/P (MAP) 138/85 (102) 126/58 (80) 158/69 (98) Pulse Ox 96 96 O2 Delivery Nasal Cannula Nasal Cannula Nasal Cannula O2 Flow Rate 3.0 3.0 3.0 Intake and Output 05/25/18 05/25/18 05/26/18 15:00 23:00 07:00 Intake Total 180 ml 240 ml Balance 180 ml 240 ml FADI MAX MD May 26, 2018 11:59
[2018-05-26 15:00] VITALS: BP 164/60
[2018-05-26 19:00] VITALS: BP 137/63
[2018-05-26 23:00] VITALS: BP 172/77
[2018-05-27] VITALS (7 sets, daily range): BP systolic 128–172; BP diastolic 62–85
[2018-05-27 04:16] LABS: BASO % 1 % (0-3); EOS # 0.3 x10^3/uL (0.0-0.7); EOS % 4 % (0-3); HEMATOCRIT 22.4 % (36.0-47.0); HEMOGLOBIN 7.7 g/dL (12.0-15.5); LYMPH # 1.5 x10^3/uL (1.0-4.8); LYMPH % 23 % (24-48); MEAN CORPUSCULAR HEMOGLOBIN 33 pg (25-35); MEAN CORPUSCULAR HGB CONC 35 g/dL (31-37); MEAN CORPUSCULAR VOLUME 96 fL (79-100); MONO # 0.8 x10^3/uL (0.0-1.1); MONO % 12 % (0-9); NEUT % 60 % (31-73); PLATELET COUNT 164 x10^3/uL (140-400); RED BLOOD COUNT 2.34 x10^6/uL (3.50-5.40); RED CELL DISTRIBUTION WIDTH 15.4 % (11.5-14.5); WHITE BLOOD COUNT 6.7 x10^3/uL (4.0-11.0)
[2018-05-27 04:37] LABS: CREATININE 0.5 mg/dL (0.6-1.0); POTASSIUM 3.3 mmol/L (3.5-5.1)
[2018-05-27] MEDS: PANTOPRAZOLE 40 MG TABLET.DR. PO SCH (06:38)
[2018-05-27] MEDS: LEVOTHYROXINE 50 MCG TABLET PO SCH (06:38)
[2018-05-27] MEDS: INSULIN LISPRO 300 UNITS/3 ML INSULN.PEN. SQ SCH ×3 (08:00→17:00)
[2018-05-27] MEDS: metFORMIN 500 MG TABLET PO SCH ×2 (08:49→17:25)
[2018-05-27] MEDS: ESTRADIOL 1 MG TABLET. PO SCH (08:49)
[2018-05-27] MEDS: glyBURIDE 5 MG TABLET PO SCH (08:52)
[2018-05-27] MEDS: CHOLECALCIFEROL (VITAMIN D3) 1,000 UNIT TABLET PO SCH (08:53)
--- NOTE | 2018-05-27 09:12 | PDOC ---
PROGRESS NOTES Chief Complaint Chief Complaint AV mal, diverticular bleed s/p coiling by iR (04/22/18) acute anemia with gib DROP IN HGB hypotension with gib resolved dm2 controlled hld hypothyroidism EDEMA SEC LOW ALBUMIN History of Present Illness History of Present Illness Admitted for LGIB - diverticular, still with low Hb Normal stool now, no further blood-tinged stool Hemodynamically stable Hemoglobin did drop to 9 from 7.7 in the last 12- 48 hrs. No abdominal pain A/P: AV mal, diverticular bleed s/p coiling by iR (04/22/18) - monitoring acute anemia with gib DROP IN HGB - 7.7 today hypotension with gib - resolved dm2 - controlled hld - stable hypothyroidism - cont meds EDEMA SEC LOW ALBUMIN - will give nutritional supplements for moderate protein calorie malnutrition Maintain clear for now, await GI Rounds H&H Daily now Vitals Vitals Vital Signs Date Time Temp Pulse Resp B/P (MAP) Pulse Ox O2 Delivery O2 Flow Rate FiO2 05/27/18 03:13 97.5 84 20 145/62 (89) 98 Nasal Cannula 97.5 05/26/18 20:00 3.0 Physical Exam General: Alert, Oriented X3, Cooperative, No acute distress Heart: Regular rate, Normal S1, Normal S2 Lungs: Clear, Wheezing Abdomen: Normal bowel sounds, Soft, No tenderness, No hepatosplenomegaly Extremities: No clubbing, No cyanosis, Other (MILD ANKLE EDEMA) Skin: No rashes, No breakdown Labs LABS Laboratory Tests Test 05/26/18 11:49 05/26/18 17:05 05/26/18 20:36 05/27/18 04:00 Glucose (Fingerstick) 62 mg/dL (70-99) 65 mg/dL (70-99) 77 mg/dL (70-99) White Blood Count 6.7 x10^3/uL (4.0-11.0) Red Blood Count 2.34 x10^6/uL (3.50-5.40) Hemoglobin 7.7 g/dL (12.0-15.5) Hematocrit 22.4 % (36.0-47.0) Mean Corpuscular Volume 96 fL (79-100) Mean Corpuscular Hemoglobin 33 pg (25-35) Mean Corpuscular Hemoglobin Concent 35 g/dL (31-37) Red Cell Distribution Width 15.4 % (11.5-14.5) Platelet Count 164 x10^3/uL (140-400) Neutrophils (%) (Auto) 60 % (31-73) Lymphocytes (%) (Auto) 23 % (24-48) Monocytes (%) (Auto) 12 % (0-9) Eosinophils (%) (Auto) 4 % (0-3) Basophils (%) (Auto) 1 % (0-3) Neutrophils # (Auto) 4.0 x10^3uL (1.8-7.7) Lymphocytes # (Auto) 1.5 x10^3/uL (1.0-4.8) Monocytes # (Auto) 0.8 x10^3/uL (0.0-1.1) Eosinophils # (Auto) 0.3 x10^3/uL (0.0-0.7) Basophils # (Auto) 0.0 x10^3/uL (0.0-0.2) Sodium Level 143 mmol/L (136-145) Potassium Level 3.3 mmol/L (3.5-5.1) Chloride Level 105 mmol/L (98-107) Carbon Dioxide Level 33 mmol/L (21-32) Anion Gap 5 (6-14) Blood Urea Nitrogen 5 mg/dL (7-20) Creatinine 0.5 mg/dL (0.6-1.0) Estimated GFR (Cockcroft-Gault) 120.0 Glucose Level 76 mg/dL (70-99) Calcium Level 8.0 mg/dL (8.5-10.1) Test 05/27/18 06:40 Glucose (Fingerstick) 80 mg/dL (70-99) Review of Systems Review of Systems Card - no CP or palp Resp - no SOB or HU Gu - no dysuria Endo - no heat/cold intolerance, normoglycemia Comment Review of Relevant I have reviewed the following items cynthia (where applicable) has been applied. Labs Laboratory Tests Test 05/25/18 12:10 05/25/18 20:48 05/26/18 04:15 05/26/18 08:30 White Blood Count 8.1 x10^3/uL (4.0-11.0) 7.0 x10^3/uL (4.0-11.0) Red Blood Count 2.69 x10^6/uL (3.50-5.40) 2.38 x10^6/uL (3.50-5.40) Hemoglobin 8.9 g/dL (12.0-15.5) 8.1 g/dL (12.0-15.5) Hematocrit 25.8 % (36.0-47.0) 22.7 % (36.0-47.0) Mean Corpuscular Volume 96 fL (79-100) 95 fL (79-100) Mean Corpuscular Hemoglobin 33 pg (25-35) 34 pg (25-35) Mean Corpuscular Hemoglobin Concent 35 g/dL (31-37) 36 g/dL (31-37) Red Cell Distribution Width 16.0 % (11.5-14.5) 15.5 % (11.5-14.5) Platelet Count 141 x10^3/uL (140-400) 145 x10^3/uL (140-400) Glucose (Fingerstick) 100 mg/dL (70-99) 93 mg/dL (70-99) 97 mg/dL (70-99) Neutrophils (%) (Auto) 62 % (31-73) Lymphocytes (%) (Auto) 23 % (24-48) Monocytes (%) (Auto) 12 % (0-9) Eosinophils (%) (Auto) 3 % (0-3) Basophils (%) (Auto) 0 % (0-3) Neutrophils # (Auto) 4.3 x10^3uL (1.8-7.7) Lymphocytes # (Auto) 1.6 x10^3/uL (1.0-4.8) Monocytes # (Auto) 0.8 x10^3/uL (0.0-1.1) Eosinophils # (Auto) 0.2 x10^3/uL (0.0-0.7) Basophils # (Auto) 0.0 x10^3/uL (0.0-0.2) Sodium Level 144 mmol/L (136-145) Potassium Level 3.5 mmol/L (3.5-5.1) Chloride Level 106 mmol/L (98-107) Carbon Dioxide Level 29 mmol/L (21-32) Anion Gap 9 (6-14) Blood Urea Nitrogen 5 mg/dL (7-20) Creatinine 0.6 mg/dL (0.6-1.0) Estimated GFR (Cockcroft-Gault) 97.2 BUN/Creatinine Ratio 8 (6-20) Glucose Level 80 mg/dL (70-99) Calcium Level 7.7 mg/dL (8.5-10.1) Total Bilirubin 0.3 mg/dL (0.2-1.0) Aspartate Amino Transf (AST/SGOT) 11 U/L (15-37) Alanine Aminotransferase (ALT/SGPT) 12 U/L (14-59) Alkaline Phosphatase 43 U/L (46-116) Total Protein 5.1 g/dL (6.4-8.2) Albumin 2.1 g/dL (3.4-5.0) Albumin/Globulin Ratio 0.7 (1.0-1.7) Test 05/26/18 11:49 05/26/18 17:05 05/26/18 20:36 05/27/18 04:00 Glucose (Fingerstick) 62 mg/dL (70-99) 65 mg/dL (70-99) 77 mg/dL (70-99) White Blood Count 6.7 x10^3/uL (4.0-11.0) Red Blood Count 2.34 x10^6/uL (3.50-5.40) Hemoglobin 7.7 g/dL (12.0-15.5) Hematocrit 22.4 % (36.0-47.0) Mean Corpuscular Volume 96 fL (79-100) Mean Corpuscular Hemoglobin 33 pg (25-35) Mean Corpuscular Hemoglobin Concent 35 g/dL (31-37) Red Cell Distribution Width 15.4 % (11.5-14.5) Platelet Count 164 x10^3/uL (140-400) Neutrophils (%) (Auto) 60 % (31-73) Lymphocytes (%) (Auto) 23 % (24-48) Monocytes (%) (Auto) 12 % (0-9) Eosinophils (%) (Auto) 4 % (0-3) Basophils (%) (Auto) 1 % (0-3) Neutrophils # (Auto) 4.0 x10^3uL (1.8-7.7) Lymphocytes # (Auto) 1.5 x10^3/uL (1.0-4.8) Monocytes # (Auto) 0.8 x10^3/uL (0.0-1.1) Eosinophils # (Auto) 0.3 x10^3/uL (0.0-0.7) Basophils # (Auto) 0.0 x10^3/uL (0.0-0.2) Sodium Level 143 mmol/L (136-145) Potassium Level 3.3 mmol/L (3.5-5.1) Chloride Level 105 mmol/L (98-107) Carbon Dioxide Level 33 mmol/L (21-32) Anion Gap 5 (6-14) Blood Urea Nitrogen 5 mg/dL (7-20) Creatinine 0.5 mg/dL (0.6-1.0) Estimated GFR (Cockcroft-Gault) 120.0 Glucose Level 76 mg/dL (70-99) Calcium Level 8.0 mg/dL (8.5-10.1) Test 05/27/18 06:40 Glucose (Fingerstick) 80 mg/dL (70-99) Laboratory Tests Test 05/26/18 11:49 05/26/18 17:05 05/26/18 20:36 05/27/18 04:00 Glucose (Fingerstick) 62 mg/dL (70-99) 65 mg/dL (70-99) 77 mg/dL (70-99) White Blood Count 6.7 x10^3/uL (4.0-11.0) Red Blood Count 2.34 x10^6/uL (3.50-5.40) Hemoglobin 7.7 g/dL (12.0-15.5) Hematocrit 22.4 % (36.0-47.0) Mean Corpuscular Volume 96 fL (79-100) Mean Corpuscular Hemoglobin 33 pg (25-35) Mean Corpuscular Hemoglobin Concent 35 g/dL (31-37) Red Cell Distribution Width 15.4 % (11.5-14.5) Platelet Count 164 x10^3/uL (140-400) Neutrophils (%) (Auto) 60 % (31-73) Lymphocytes (%) (Auto) 23 % (24-48) Monocytes (%) (Auto) 12 % (0-9) Eosinophils (%) (Auto) 4 % (0-3) Basophils (%) (Auto) 1 % (0-3) Neutrophils # (Auto) 4.0 x10^3uL (1.8-7.7) Lymphocytes # (Auto) 1.5 x10^3/uL (1.0-4.8) Monocytes # (Auto) 0.8 x10^3/uL (0.0-1.1) Eosinophils # (Auto) 0.3 x10^3/uL (0.0-0.7) Basophils # (Auto) 0.0 x10^3/uL (0.0-0.2) Sodium Level 143 mmol/L (136-145) Potassium Level 3.3 mmol/L (3.5-5.1) Chloride Level 105 mmol/L (98-107) Carbon Dioxide Level 33 mmol/L (21-32) Anion Gap 5 (6-14) Blood Urea Nitrogen 5 mg/dL (7-20) Creatinine 0.5 mg/dL (0.6-1.0) Estimated GFR (Cockcroft-Gault) 120.0 Glucose Level 76 mg/dL (70-99) Calcium Level 8.0 mg/dL (8.5-10.1) Test 05/27/18 06:40 Glucose (Fingerstick) 80 mg/dL (70-99) Medications Current Medications Sodium Chloride 1,000 ml @ 100 mls/hr Q10H IV Last administered on 05/23/18at 03:07; Start 05/20/18 at 21:30; Stop 05/23/18 at 11:58; Status DC Pantoprazole Sodium (PROTONIX VIAL for IV PUSH) 40 mg DAILYAC IVP ; Start at 07:30; Stop 05/21/18 at 13:41; Status DC Ondansetron HCl (Zofran) 4 mg PRN Q6HRS PRN IV NAUSEA/VOMITING Last administered on 05/23/18at 16:59; Start 05/20/18 at 21:30 Acetaminophen (Tylenol) 650 mg PRN Q6HRS PRN PO MILD PAIN; Start 05/20/18 at 21 :30; Stop 05/23/18 at 11:35; Status DC Morphine Sulfate (Morphine Sulfate) 2 mg PRN Q2HR PRN IV PAIN; Start 05/20/18 at 21:30 Pantoprazole Sodium 80 mg/ Sodium Chloride 100 ml @ 10 mls/hr Q10H IV Last administered on 05/23/18at 09:29; Start 05/20/18 at 22:00; Stop 05/23/18 at 10:19 ; Status DC Pantoprazole Sodium (PROTONIX VIAL for IV PUSH) 80 mg 1X ONCE IVP Last administered on 05/20/18at 22:27; Start 05/20/18 at 22:00; Stop 05/20/18 at 22:01 ; Status DC Heparin Sodium (Porcine) (HEPARIN for NUC MED) 100 unit 1X ONCE IV Last administered on 05/21/18at 10:30; Start 05/21/18 at 10:30; Stop 05/21/18 at 10:31 ; Status DC Sodium Chloride 1,000 ml @ 1,000 mls/hr 1X ONCE IV Last administered on at 10:38; Start 05/21/18 at 10:45; Stop 05/21/18 at 11:44; Status DC Levothyroxine Sodium 25 mcg/ Sodium Chloride 5 ml @ 100 mls/hr DAILY IVP Last administered on 05/23/18at 09:29; Start 05/21/18 at 13:00; Stop 05/23/18 at 11:33 ; Status DC Insulin Human Lispro (HumaLOG) 0-5 UNITS TIDWMEALS SQ ; Start 05/21/18 at 17:00 Dextrose (Dextrose 50%-Water Syringe) 12.5 gm PRN Q15MIN PRN IV SEE COMMENTS; Start 05/21/18 at 13:00 Sodium Monofluorophosphate (Fleet Adult) 133 ml 1X ONCE NC Last administered on 05/21/18at 13:58; Start 05/21/18 at 13:15; Stop 05/21/18 at 13:20; Status DC Sodium Monofluorophosphate (Fleet Adult) 133 ml 1X ONCE NC Last administered on 05/21/18at 13:55; Start 05/21/18 at 13:15; Stop 05/21/18 at 13:26; Status DC Midazolam HCl (Versed) 5 mg STK-MED ONCE .ROUTE ; Start 05/21/18 at 14:11; Stop 05/21/18 at 14:12; Status DC Fentanyl Citrate (Fentanyl 2ml Vial) 100 mcg STK-MED ONCE .ROUTE ; Start at 14:12; Stop 05/21/18 at 14:13; Status DC Epinephrine HCl (Adrenalin) 1 mg STK-MED ONCE .ROUTE ; Start 05/21/18 at 14:46; Stop 05/21/18 at 14:47; Status DC Epinephrine HCl (EPINEPHrine SYRINGE) 1 mg STK-MED ONCE .ROUTE ; Start 05/21/18 at 14:47; Stop 05/21/18 at 14:48; Status DC Fentanyl Citrate (Fentanyl 2ml Vial) 100 mcg STK-MED ONCE IV Last administered on 05/21/18at 14:50; Start 05/21/18 at 14:50; Stop 05/21/18 at 15:55; Status DC Midazolam HCl (Versed) 5 mg STK-MED ONCE IV Last administered on 05/21/18at 14: 51; Start 05/21/18 at 14:51; Stop 05/21/18 at 15:55; Status DC Midazolam HCl (Versed) 5 mg STK-MED ONCE IV Last administered on 05/21/18at 14: 52; Start 05/21/18 at 14:52; Stop 05/21/18 at 15:55; Status DC Fentanyl Citrate (Fentanyl 2ml Vial) 100 mcg STK-MED ONCE IV Last administered on 05/21/18at 14:54; Start 05/21/18 at 14:54; Stop 05/21/18 at 15:55; Status DC Midazolam HCl (Versed) 5 mg STK-MED ONCE IV Last administered on 05/21/18at 14: 56; Start 05/21/18 at 14:56; Stop 05/21/18 at 15:55; Status DC Midazolam HCl (Versed) 5 mg STK-MED ONCE IV Last administered on 05/21/18at 15: 02; Start 05/21/18 at 15:02; Stop 05/21/18 at 15:55; Status DC Iohexol (Omnipaque 300 Mg/ml) 90 ml 1X ONCE IV ; Start 05/21/18 at 17:15; Stop 05/21/18 at 17:17; Status DC Sodium Cl/Sod Bicarb/Potass Cl/ PEG (Golytely) 4,000 ml 1X ONCE PO Last administered on 05/21/18at 19:33; Start 05/21/18 at 18:30; Stop 05/21/18 at 18:31 ; Status DC Propofol 40 ml @ As Directed STK-MED ONCE IV ; Start 05/22/18 at 12:33; Stop at 12:34; Status DC Lidocaine/Sodium Bicarbonate (Buffered Lidocaine 1%) 3 ml STK-MED ONCE .ROUTE ; Start 05/22/18 at 15:01; Stop 05/22/18 at 15:02; Status DC Iohexol (Omnipaque 240 Mg/ml) 50 ml STK-MED ONCE .ROUTE ; Start 05/22/18 at 15: 01; Stop 05/22/18 at 15:02; Status DC Iohexol (Omnipaque 300 Mg/ml) 100 ml STK-MED ONCE .ROUTE ; Start 05/22/18 at 15: 01; Stop 05/22/18 at 15:02; Status DC Heparin Sodium/ Sodium Chloride 1,000 ml @ As Directed STK-MED ONCE .ROUTE ; Start 05/22/18 at 15:01; Stop 05/22/18 at 15:02; Status DC Midazolam HCl (Versed) 2 mg STK-MED ONCE .ROUTE ; Start 05/22/18 at 15:35; Stop 05/22/18 at 15:36; Status DC Fentanyl Citrate (Fentanyl 2ml Vial) 100 mcg STK-MED ONCE .ROUTE ; Start at 15:36; Stop 05/22/18 at 15:37; Status DC Heparin Sodium/ Sodium Chloride (HEPARIN for ARTERIAL LINE FLUSH) 1,000 unit 1X ONCE IART Last administered on 05/22/18at 17:40; Start 05/22/18 at 16:45; Stop 05/22/18 at 16:46; Status DC Lidocaine/Sodium Bicarbonate (Buffered Lidocaine 1%) 3 ml 1X ONCE IJ Last administered on 05/22/18at 17:40; Start 05/22/18 at 16:45; Stop 05/22/18 at 16:46 ; Status DC Midazolam HCl (Versed) 2 mg 1X ONCE IV Last administered on 05/22/18at 17:39; Start 05/22/18 at 16:45; Stop 05/22/18 at 16:46; Status DC Fentanyl Citrate (Fentanyl 2ml Vial) 100 mcg 1X ONCE IV Last administered on 05/22/18at 17:39; Start 05/22/18 at 16:45; Stop 05/22/18 at 16:46; Status DC Iohexol (Omnipaque 300 Mg/ml) 100 ml 1X ONCE IART Last administered on at 17:39; Start 05/22/18 at 16:45; Stop 05/22/18 at 16:46; Status DC Iohexol (Omnipaque 240 Mg/ml) 50 ml 1X ONCE IART Last administered on at 17:40; Start 05/22/18 at 16:45; Stop 05/22/18 at 16:46; Status DC Info (CONTRAST GIVEN -- Rx MONITORING) 1 each PRN DAILY PRN MC SEE COMMENTS; Start 05/22/18 at 17:00; Stop 05/24/18 at 16:59; Status DC Midazolam HCl (Versed) 2 mg STK-MED ONCE .ROUTE ; Start 05/22/18 at 16:45; Stop 05/22/18 at 16:46; Status DC Fentanyl Citrate (Fentanyl 2ml Vial) 100 mcg STK-MED ONCE .ROUTE ; Start at 16:46; Stop 05/22/18 at 16:47; Status DC Iohexol (Omnipaque 300 Mg/ml) 100 ml STK-MED ONCE .ROUTE ; Start 05/22/18 at 16: 51; Stop 05/22/18 at 16:52; Status DC Epinephrine HCl (EPINEPHrine SYRINGE) 1 mg STK-MED ONCE .ROUTE ; Start 05/21/18 at 14:00; Stop 05/23/18 at 07:59; Status DC Fentanyl Citrate (Fentanyl 2ml Vial) 100 mcg STK-MED ONCE .ROUTE ; Start at 14:00; Stop 05/23/18 at 07:59; Status DC Midazolam HCl (Versed) 5 mg STK-MED ONCE .ROUTE ; Start 05/21/18 at 14:00; Stop 05/23/18 at 07:59; Status DC Pantoprazole Sodium (Protonix) 40 mg DAILYAC PO Last administered on at 06:38; Start 05/24/18 at 07:30 Acetaminophen (Tylenol) 500 mg PRN Q6HRS PRN PO MILD PAIN / TEMP; Start at 11:45 Levothyroxine Sodium (Synthroid) 50 mcg DAILY06 PO Last administered on at 06:38; Start 05/24/18 at 06:00 Vitamin D (Vitamin D3) 3,000 unit DAILY PO Last administered on 05/27/18at 08: 53; Start 05/24/18 at 09:00 Non-Formulary Medication (Ascorbate Calcium/ Bioflavonoid (Sugey-C 1,000 Mg Tablet)) 1 each DAILY PO ; Start 05/24/18 at 09:00; Status UNV Non-Formulary Medication (Biotin ) 10,000 mcg DAILY PO ; Start 05/24/18 at 09:00 ; Status UNV Estradiol (Estrace) 2 mg DAILY PO Last administered on 05/27/18at 08:49; Start 05/24/18 at 09:00 Glyburide (Diabeta) 2.5 mg DAILY PO Last administered on 05/27/18at 08:52; Start 05/24/18 at 09:00 Metformin HCl (Glucophage) 1,000 mg BIDWMEALS PO Last administered on at 08:49; Start 05/24/18 at 17:00 Active Scripts Active [Pantoprazole] 40 MG Tablet.dr 40 Mg PO DAILYAC Reported Vitamin D3 (Cholecalciferol (Vitamin D3)) 1,000 Unit Tablet 3 Tab PO DAILY Metformin Hcl 1,000 Mg Tablet 1,000 Mg PO BID Glyburide 2.5 Mg Tablet 1 Tab PO DAILY Famotidine 40 Mg Tablet 40 Mg PO DAILY Levothyroxine Sodium 50 Mcg Tablet 50 Mcg PO DAILYAC Estrace (Estradiol) 2 Mg Tablet 2 Mg PO DAILY Biotin 10,000 Mcg Capsule 10,000 Mcg PO DAILY Sugey-C 1,000 Mg Tablet (Ascorbate Calcium/Bioflavonoid) 1 Each Tablet 1 Each PO DAILY Vitals/I & O Vital Sign - Last 24 Hours 05/26/18 05/26/18 05/26/18 05/26/18 11:00 15:00 19:00 20:00 Temp 97.7 97.9 98.0 97.7 97.9 98.0 Pulse 87 83 81 Resp 20 20 20 B/P (MAP) 149/73 (98) 164/60 (94) 137/63 (87) Pulse Ox 91 94 99 O2 Delivery Nasal Cannula Nasal Cannula Room Air Nasal Cannula O2 Flow Rate 3.0 3.0 3.0 05/26/18 05/27/18 05/27/18 23:00 00:42 03:13 Temp 97.0 97.5 97.0 97.5 Pulse 88 83 84 Resp 20 20 B/P (MAP) 172/77 (108) 128/64 (85) 145/62 (89) Pulse Ox 94 98 O2 Delivery Room Air Nasal Cannula Intake and Output 05/26/18 05/26/18 05/27/18 15:00 23:00 07:00 Intake Total 350 ml Balance 350 ml ANABELLE BEAULIEU MD May 27, 2018 09:12
--- NOTE | 2018-05-27 10:34 | PDOC ---
Subjective: Subjective: No bleeding - describes liquid brown stool yesterday. Not a huge fan of the food here but eating some. Would like to go home but again mentions she doesn't want to go too soon. Objective: Vital Signs: Vital Signs Date Time Temp Pulse Resp B/P (MAP) Pulse Ox O2 Delivery O2 Flow Rate FiO2 05/27/18 08:00 Nasal Cannula 3.0 05/27/18 07:00 98.3 80 18 129/64 (85) 98 98.3 Labs: Laboratory Tests Test 05/26/18 11:49 05/26/18 17:05 05/26/18 20:36 05/27/18 04:00 Glucose (Fingerstick) 62 mg/dL 65 mg/dL 77 mg/dL White Blood Count 6.7 x10^3/uL Red Blood Count 2.34 x10^6/uL Hemoglobin 7.7 g/dL Hematocrit 22.4 % Mean Corpuscular Volume 96 fL Mean Corpuscular Hemoglobin 33 pg Mean Corpuscular Hemoglobin Concent 35 g/dL Red Cell Distribution Width 15.4 % Platelet Count 164 x10^3/uL Neutrophils (%) (Auto) 60 % Lymphocytes (%) (Auto) 23 % Monocytes (%) (Auto) 12 % Eosinophils (%) (Auto) 4 % Basophils (%) (Auto) 1 % Neutrophils # (Auto) 4.0 x10^3uL Lymphocytes # (Auto) 1.5 x10^3/uL Monocytes # (Auto) 0.8 x10^3/uL Eosinophils # (Auto) 0.3 x10^3/uL Basophils # (Auto) 0.0 x10^3/uL Sodium Level 143 mmol/L Potassium Level 3.3 mmol/L Chloride Level 105 mmol/L Carbon Dioxide Level 33 mmol/L Anion Gap 5 Blood Urea Nitrogen 5 mg/dL Creatinine 0.5 mg/dL Estimated GFR (Cockcroft-Gault) 120.0 Glucose Level 76 mg/dL Calcium Level 8.0 mg/dL Test 05/27/18 06:40 Glucose (Fingerstick) 80 mg/dL PE: GEN: NAD LUNGS: CTAB HEART: RRR ABD: S/ND/NT NEURO/PSYCH: A & O 3 A/P: GI bleed - resolved -s/p EGD, colonoscopy x 2 (diverticulosis), IR coil to left colon 05/22/18 Anemia - Hgb 7-8 range -- No further bleeding. Add iron for anemia. DC per primary - would recheck labs as outpt. JULIO CESAR RENTERIA May 27, 2018 10:34
[2018-05-27] MEDS ORDERED: POLYETHYLENE GLYCOL 3350 17 GM PACKET. PO PRN (10:45)
--- NOTE | 2018-05-27 12:26 | RAD ---
Chest, 2 views, 05/27/2018: HISTORY: Hypoxia Comparison is made to a study from 01/31/2018. The heart size and pulmonary vascularity are normal. There are minimal linear basilar opacities compatible with atelectasis. A small amount of bilateral pleural fluid has developed. The upper lung garza are clear. Scattered spurs are present in the spine. IMPRESSION: Small bilateral pleural effusions have developed with minimal basilar linear atelectasis. Electronically signed by: Colton Arellano MD (05/27/2018 12:22 PM) [facility]
[2018-05-27] MEDS ORDERED: POTASSIUM CHLORIDE 20 MEQ TABLET.ER. PO ONE (12:45)
[2018-05-27] MEDS: FERROUS SULFATE ORAL 300 MG/5 ML SOLUTION. PO SCH ×2 (12:48→17:25)
[2018-05-27] MEDS ORDERED: IRON SUCROSE COMPLEX 200 MG in IV NORMAL SALINE 100ML 100 ML IV ONE (13:00)
[2018-05-28 03:00] VITALS: BP 143/67
[2018-05-28] MEDS: LEVOTHYROXINE 50 MCG TABLET PO SCH (06:32)
[2018-05-28 07:00] VITALS: BP 147/58
[2018-05-28 07:49] LABS: BASO % 1 % (0-3); EOS # 0.3 x10^3/uL (0.0-0.7); EOS % 4 % (0-3); HEMATOCRIT 24.7 % (36.0-47.0); HEMOGLOBIN 8.5 g/dL (12.0-15.5); LYMPH # 1.9 x10^3/uL (1.0-4.8); LYMPH % 25 % (24-48); MEAN CORPUSCULAR HEMOGLOBIN 33 pg (25-35); MEAN CORPUSCULAR HGB CONC 35 g/dL (31-37); MEAN CORPUSCULAR VOLUME 96 fL (79-100); MONO # 0.9 x10^3/uL (0.0-1.1); MONO % 12 % (0-9); NEUT # 4.4 x10^3uL (1.8-7.7); NEUT % 59 % (31-73); PLATELET COUNT 204 x10^3/uL (140-400); RED BLOOD COUNT 2.57 x10^6/uL (3.50-5.40); RED CELL DISTRIBUTION WIDTH 15.6 % (11.5-14.5); WHITE BLOOD COUNT 7.4 x10^3/uL (4.0-11.0)
[2018-05-28] MEDS: PANTOPRAZOLE 40 MG TABLET.DR. PO SCH (07:51)
[2018-05-28] MEDS ORDERED: glyBURIDE 5 MG TABLET PO SCH (08:00)
[2018-05-28] MEDS: INSULIN LISPRO 300 UNITS/3 ML INSULN.PEN. SQ SCH ×2 (08:00→12:00)
[2018-05-28] MEDS: FERROUS SULFATE ORAL 300 MG/5 ML SOLUTION. PO SCH (08:08)
[2018-05-28] MEDS: ESTRADIOL 1 MG TABLET. PO SCH (08:08)
[2018-05-28] MEDS: CHOLECALCIFEROL (VITAMIN D3) 1,000 UNIT TABLET PO SCH (08:09)
[2018-05-28] MEDS: metFORMIN 500 MG TABLET PO SCH (08:15)
[2018-05-28] MEDS ORDERED: PSYLLIUM HUSK (SUGAR FREE) 1 PKT PACKET PO SCH (09:00)
[2018-05-28] MEDS ORDERED: NEOMY/BACITR/POLYMYXIN OINT PACKET. TP SCH (10:00)
[2018-05-28 11:00] VITALS: BP 161/80
--- NOTE | 2018-05-28 11:59 | PDOC ---
PROGRESS NOTES Chief Complaint Chief Complaint AV mal, diverticular bleed s/p coiling by iR (04/22/18) acute anemia with gib DROP IN HGB hypotension with gib resolved dm2 controlled hld hypothyroidism EDEMA SEC LOW ALBUMIN History of Present Illness History of Present Illness pt seen and examine w/ family at bedside pt is pleasant and ready to go home Denies anymore bloody stools after coils placed 05/21 Complains of B/L UE and LE edema probably due to decreased protein intake and low albumin levels Dw/ RN Vitals Vitals Vital Signs Date Time Temp Pulse Resp B/P (MAP) Pulse Ox O2 Delivery O2 Flow Rate FiO2 05/28/18 11:00 98.3 97 20 161/80 (107) 84 Room Air 98.3 05/28/18 08:00 2.0 Physical Exam General: Alert, Oriented X3, Cooperative, No acute distress Heart: Regular rate, Normal S1, Normal S2 Lungs: Clear, Wheezing Abdomen: Normal bowel sounds, Soft, No tenderness, No hepatosplenomegaly Extremities: No clubbing, No cyanosis, Other (MILD ANKLE EDEMA) Skin: No rashes, No breakdown Labs LABS Laboratory Tests Test 05/27/18 17:07 05/27/18 21:25 05/28/18 06:55 05/28/18 07:59 Glucose (Fingerstick) 71 mg/dL (70-99) 96 mg/dL (70-99) 93 mg/dL (70-99) White Blood Count 7.4 x10^3/uL (4.0-11.0) Red Blood Count 2.57 x10^6/uL (3.50-5.40) Hemoglobin 8.5 g/dL (12.0-15.5) Hematocrit 24.7 % (36.0-47.0) Mean Corpuscular Volume 96 fL (79-100) Mean Corpuscular Hemoglobin 33 pg (25-35) Mean Corpuscular Hemoglobin Concent 35 g/dL (31-37) Red Cell Distribution Width 15.6 % (11.5-14.5) Platelet Count 204 x10^3/uL (140-400) Neutrophils (%) (Auto) 59 % (31-73) Lymphocytes (%) (Auto) 25 % (24-48) Monocytes (%) (Auto) 12 % (0-9) Eosinophils (%) (Auto) 4 % (0-3) Basophils (%) (Auto) 1 % (0-3) Neutrophils # (Auto) 4.4 x10^3uL (1.8-7.7) Lymphocytes # (Auto) 1.9 x10^3/uL (1.0-4.8) Monocytes # (Auto) 0.9 x10^3/uL (0.0-1.1) Eosinophils # (Auto) 0.3 x10^3/uL (0.0-0.7) Basophils # (Auto) 0.0 x10^3/uL (0.0-0.2) Test 05/28/18 11:10 Glucose (Fingerstick) 94 mg/dL (70-99) Review of Systems Review of Systems CO edema CO fatigue Assessment and Plan Assessmemt and Plan AV mal, diverticular bleed s/p coiling by iR (04/22/18) acute anemia with gib DROP IN HGB hypotension with gib resolved dm2 controlled hld hypothyroidism EDEMA SEC LOW ALBUMIN Plan: Discharge Today Home meds Labs Comment Review of Relevant I have reviewed the following items cynthia (where applicable) has been applied. Labs Laboratory Tests Test 05/26/18 17:05 05/26/18 20:36 05/27/18 04:00 05/27/18 06:40 Glucose (Fingerstick) 65 mg/dL (70-99) 77 mg/dL (70-99) 80 mg/dL (70-99) White Blood Count 6.7 x10^3/uL (4.0-11.0) Red Blood Count 2.34 x10^6/uL (3.50-5.40) Hemoglobin 7.7 g/dL (12.0-15.5) Hematocrit 22.4 % (36.0-47.0) Mean Corpuscular Volume 96 fL (79-100) Mean Corpuscular Hemoglobin 33 pg (25-35) Mean Corpuscular Hemoglobin Concent 35 g/dL (31-37) Red Cell Distribution Width 15.4 % (11.5-14.5) Platelet Count 164 x10^3/uL (140-400) Neutrophils (%) (Auto) 60 % (31-73) Lymphocytes (%) (Auto) 23 % (24-48) Monocytes (%) (Auto) 12 % (0-9) Eosinophils (%) (Auto) 4 % (0-3) Basophils (%) (Auto) 1 % (0-3) Neutrophils # (Auto) 4.0 x10^3uL (1.8-7.7) Lymphocytes # (Auto) 1.5 x10^3/uL (1.0-4.8) Monocytes # (Auto) 0.8 x10^3/uL (0.0-1.1) Eosinophils # (Auto) 0.3 x10^3/uL (0.0-0.7) Basophils # (Auto) 0.0 x10^3/uL (0.0-0.2) Reticulocyte Count (auto) 1.8 % (0.5-2.5) Sodium Level 143 mmol/L (136-145) Potassium Level 3.3 mmol/L (3.5-5.1) Chloride Level 105 mmol/L (98-107) Carbon Dioxide Level 33 mmol/L (21-32) Anion Gap 5 (6-14) Blood Urea Nitrogen 5 mg/dL (7-20) Creatinine 0.5 mg/dL (0.6-1.0) Estimated GFR (Cockcroft-Gault) 120.0 Glucose Level 76 mg/dL (70-99) Calcium Level 8.0 mg/dL (8.5-10.1) Iron Level 26 ug/dL (50-170) Total Iron Binding Capacity 141 ug/dL (250-450) Iron Saturation 18 % (15-34) Vitamin B12 Level 1118 pg/mL (247-911) Test 05/27/18 11:52 05/27/18 17:07 05/27/18 21:25 05/28/18 06:55 Glucose (Fingerstick) 99 mg/dL (70-99) 71 mg/dL (70-99) 96 mg/dL (70-99) White Blood Count 7.4 x10^3/uL (4.0-11.0) Red Blood Count 2.57 x10^6/uL (3.50-5.40) Hemoglobin 8.5 g/dL (12.0-15.5) Hematocrit 24.7 % (36.0-47.0) Mean Corpuscular Volume 96 fL (79-100) Mean Corpuscular Hemoglobin 33 pg (25-35) Mean Corpuscular Hemoglobin Concent 35 g/dL (31-37) Red Cell Distribution Width 15.6 % (11.5-14.5) Platelet Count 204 x10^3/uL (140-400) Neutrophils (%) (Auto) 59 % (31-73) Lymphocytes (%) (Auto) 25 % (24-48) Monocytes (%) (Auto) 12 % (0-9) Eosinophils (%) (Auto) 4 % (0-3) Basophils (%) (Auto) 1 % (0-3) Neutrophils # (Auto) 4.4 x10^3uL (1.8-7.7) Lymphocytes # (Auto) 1.9 x10^3/uL (1.0-4.8) Monocytes # (Auto) 0.9 x10^3/uL (0.0-1.1) Eosinophils # (Auto) 0.3 x10^3/uL (0.0-0.7) Basophils # (Auto) 0.0 x10^3/uL (0.0-0.2) Test 05/28/18 07:59 05/28/18 11:10 Glucose (Fingerstick) 93 mg/dL (70-99) 94 mg/dL (70-99) Laboratory Tests Test 05/27/18 17:07 05/27/18 21:25 05/28/18 06:55 05/28/18 07:59 Glucose (Fingerstick) 71 mg/dL (70-99) 96 mg/dL (70-99) 93 mg/dL (70-99) White Blood Count 7.4 x10^3/uL (4.0-11.0) Red Blood Count 2.57 x10^6/uL (3.50-5.40) Hemoglobin 8.5 g/dL (12.0-15.5) Hematocrit 24.7 % (36.0-47.0) Mean Corpuscular Volume 96 fL (79-100) Mean Corpuscular Hemoglobin 33 pg (25-35) Mean Corpuscular Hemoglobin Concent 35 g/dL (31-37) Red Cell Distribution Width 15.6 % (11.5-14.5) Platelet Count 204 x10^3/uL (140-400) Neutrophils (%) (Auto) 59 % (31-73) Lymphocytes (%) (Auto) 25 % (24-48) Monocytes (%) (Auto) 12 % (0-9) Eosinophils (%) (Auto) 4 % (0-3) Basophils (%) (Auto) 1 % (0-3) Neutrophils # (Auto) 4.4 x10^3uL (1.8-7.7) Lymphocytes # (Auto) 1.9 x10^3/uL (1.0-4.8) Monocytes # (Auto) 0.9 x10^3/uL (0.0-1.1) Eosinophils # (Auto) 0.3 x10^3/uL (0.0-0.7) Basophils # (Auto) 0.0 x10^3/uL (0.0-0.2) Test 05/28/18 11:10 Glucose (Fingerstick) 94 mg/dL (70-99) Medications Current Medications Sodium Chloride 1,000 ml @ 100 mls/hr Q10H IV Last administered on 05/23/18at 03:07; Start 05/20/18 at 21:30; Stop 05/23/18 at 11:58; Status DC Pantoprazole Sodium (PROTONIX VIAL for IV PUSH) 40 mg DAILYAC IVP ; Start at 07:30; Stop 05/21/18 at 13:41; Status DC Ondansetron HCl (Zofran) 4 mg PRN Q6HRS PRN IV NAUSEA/VOMITING Last administered on 05/23/18at 16:59; Start 05/20/18 at 21:30 Acetaminophen (Tylenol) 650 mg PRN Q6HRS PRN PO MILD PAIN; Start 05/20/18 at 21 :30; Stop 05/23/18 at 11:35; Status DC Morphine Sulfate (Morphine Sulfate) 2 mg PRN Q2HR PRN IV PAIN; Start 05/20/18 at 21:30 Pantoprazole Sodium 80 mg/ Sodium Chloride 100 ml @ 10 mls/hr Q10H IV Last administered on 05/23/18at 09:29; Start 05/20/18 at 22:00; Stop 05/23/18 at 10:19 ; Status DC Pantoprazole Sodium (PROTONIX VIAL for IV PUSH) 80 mg 1X ONCE IVP Last administered on 05/20/18at 22:27; Start 05/20/18 at 22:00; Stop 05/20/18 at 22:01 ; Status DC Heparin Sodium (Porcine) (HEPARIN for NUC MED) 100 unit 1X ONCE IV Last administered on 05/21/18at 10:30; Start 05/21/18 at 10:30; Stop 05/21/18 at 10:31 ; Status DC Sodium Chloride 1,000 ml @ 1,000 mls/hr 1X ONCE IV Last administered on at 10:38; Start 05/21/18 at 10:45; Stop 05/21/18 at 11:44; Status DC Levothyroxine Sodium 25 mcg/ Sodium Chloride 5 ml @ 100 mls/hr DAILY IVP Last administered on 05/23/18at 09:29; Start 05/21/18 at 13:00; Stop 05/23/18 at 11:33 ; Status DC Insulin Human Lispro (HumaLOG) 0-5 UNITS TIDWMEALS SQ ; Start 05/21/18 at 17:00 Dextrose (Dextrose 50%-Water Syringe) 12.5 gm PRN Q15MIN PRN IV SEE COMMENTS; Start 05/21/18 at 13:00 Sodium Monofluorophosphate (Fleet Adult) 133 ml 1X ONCE MO Last administered on 05/21/18at 13:58; Start 05/21/18 at 13:15; Stop 05/21/18 at 13:20; Status DC Sodium Monofluorophosphate (Fleet Adult) 133 ml 1X ONCE MO Last administered on 05/21/18at 13:55; Start 05/21/18 at 13:15; Stop 05/21/18 at 13:26; Status DC Midazolam HCl (Versed) 5 mg STK-MED ONCE .ROUTE ; Start 05/21/18 at 14:11; Stop 05/21/18 at 14:12; Status DC Fentanyl Citrate (Fentanyl 2ml Vial) 100 mcg STK-MED ONCE .ROUTE ; Start at 14:12; Stop 05/21/18 at 14:13; Status DC Epinephrine HCl (Adrenalin) 1 mg STK-MED ONCE .ROUTE ; Start 05/21/18 at 14:46; Stop 05/21/18 at 14:47; Status DC Epinephrine HCl (EPINEPHrine SYRINGE) 1 mg STK-MED ONCE .ROUTE ; Start 05/21/18 at 14:47; Stop 05/21/18 at 14:48; Status DC Fentanyl Citrate (Fentanyl 2ml Vial) 100 mcg STK-MED ONCE IV Last administered on 05/21/18at 14:50; Start 05/21/18 at 14:50; Stop 05/21/18 at 15:55; Status DC Midazolam HCl (Versed) 5 mg STK-MED ONCE IV Last administered on 05/21/18at 14: 51; Start 05/21/18 at 14:51; Stop 05/21/18 at 15:55; Status DC Midazolam HCl (Versed) 5 mg STK-MED ONCE IV Last administered on 05/21/18at 14: 52; Start 05/21/18 at 14:52; Stop 05/21/18 at 15:55; Status DC Fentanyl Citrate (Fentanyl 2ml Vial) 100 mcg STK-MED ONCE IV Last administered on 05/21/18at 14:54; Start 05/21/18 at 14:54; Stop 05/21/18 at 15:55; Status DC Midazolam HCl (Versed) 5 mg STK-MED ONCE IV Last administered on 05/21/18at 14: 56; Start 05/21/18 at 14:56; Stop 05/21/18 at 15:55; Status DC Midazolam HCl (Versed) 5 mg STK-MED ONCE IV Last administered on 05/21/18at 15: 02; Start 05/21/18 at 15:02; Stop 05/21/18 at 15:55; Status DC Iohexol (Omnipaque 300 Mg/ml) 90 ml 1X ONCE IV ; Start 05/21/18 at 17:15; Stop 05/21/18 at 17:17; Status DC Sodium Cl/Sod Bicarb/Potass Cl/ PEG (Golytely) 4,000 ml 1X ONCE PO Last administered on 05/21/18at 19:33; Start 05/21/18 at 18:30; Stop 05/21/18 at 18:31 ; Status DC Propofol 40 ml @ As Directed STK-MED ONCE IV ; Start 05/22/18 at 12:33; Stop at 12:34; Status DC Lidocaine/Sodium Bicarbonate (Buffered Lidocaine 1%) 3 ml STK-MED ONCE .ROUTE ; Start 05/22/18 at 15:01; Stop 05/22/18 at 15:02; Status DC Iohexol (Omnipaque 240 Mg/ml) 50 ml STK-MED ONCE .ROUTE ; Start 05/22/18 at 15: 01; Stop 05/22/18 at 15:02; Status DC Iohexol (Omnipaque 300 Mg/ml) 100 ml STK-MED ONCE .ROUTE ; Start 05/22/18 at 15: 01; Stop 05/22/18 at 15:02; Status DC Heparin Sodium/ Sodium Chloride 1,000 ml @ As Directed STK-MED ONCE .ROUTE ; Start 05/22/18 at 15:01; Stop 05/22/18 at 15:02; Status DC Midazolam HCl (Versed) 2 mg STK-MED ONCE .ROUTE ; Start 05/22/18 at 15:35; Stop 05/22/18 at 15:36; Status DC Fentanyl Citrate (Fentanyl 2ml Vial) 100 mcg STK-MED ONCE .ROUTE ; Start at 15:36; Stop 05/22/18 at 15:37; Status DC Heparin Sodium/ Sodium Chloride (HEPARIN for ARTERIAL LINE FLUSH) 1,000 unit 1X ONCE IART Last administered on 05/22/18at 17:40; Start 05/22/18 at 16:45; Stop 05/22/18 at 16:46; Status DC Lidocaine/Sodium Bicarbonate (Buffered Lidocaine 1%) 3 ml 1X ONCE IJ Last administered on 05/22/18at 17:40; Start 05/22/18 at 16:45; Stop 05/22/18 at 16:46 ; Status DC Midazolam HCl (Versed) 2 mg 1X ONCE IV Last administered on 05/22/18at 17:39; Start 05/22/18 at 16:45; Stop 05/22/18 at 16:46; Status DC Fentanyl Citrate (Fentanyl 2ml Vial) 100 mcg 1X ONCE IV Last administered on 05/22/18at 17:39; Start 05/22/18 at 16:45; Stop 05/22/18 at 16:46; Status DC Iohexol (Omnipaque 300 Mg/ml) 100 ml 1X ONCE IART Last administered on at 17:39; Start 05/22/18 at 16:45; Stop 05/22/18 at 16:46; Status DC Iohexol (Omnipaque 240 Mg/ml) 50 ml 1X ONCE IART Last administered on at 17:40; Start 05/22/18 at 16:45; Stop 05/22/18 at 16:46; Status DC Info (CONTRAST GIVEN -- Rx MONITORING) 1 each PRN DAILY PRN MC SEE COMMENTS; Start 05/22/18 at 17:00; Stop 05/24/18 at 16:59; Status DC Midazolam HCl (Versed) 2 mg STK-MED ONCE .ROUTE ; Start 05/22/18 at 16:45; Stop 05/22/18 at 16:46; Status DC Fentanyl Citrate (Fentanyl 2ml Vial) 100 mcg STK-MED ONCE .ROUTE ; Start at 16:46; Stop 05/22/18 at 16:47; Status DC Iohexol (Omnipaque 300 Mg/ml) 100 ml STK-MED ONCE .ROUTE ; Start 05/22/18 at 16: 51; Stop 05/22/18 at 16:52; Status DC Epinephrine HCl (EPINEPHrine SYRINGE) 1 mg STK-MED ONCE .ROUTE ; Start 05/21/18 at 14:00; Stop 05/23/18 at 07:59; Status DC Fentanyl Citrate (Fentanyl 2ml Vial) 100 mcg STK-MED ONCE .ROUTE ; Start at 14:00; Stop 05/23/18 at 07:59; Status DC Midazolam HCl (Versed) 5 mg STK-MED ONCE .ROUTE ; Start 05/21/18 at 14:00; Stop 05/23/18 at 07:59; Status DC Pantoprazole Sodium (Protonix) 40 mg DAILYAC PO Last administered on at 07:51; Start 05/24/18 at 07:30 Acetaminophen (Tylenol) 500 mg PRN Q6HRS PRN PO MILD PAIN / TEMP; Start at 11:45 Levothyroxine Sodium (Synthroid) 50 mcg DAILY06 PO Last administered on at 06:32; Start 05/24/18 at 06:00 Vitamin D (Vitamin D3) 3,000 unit DAILY PO Last administered on 05/28/18at 08: 09; Start 05/24/18 at 09:00 Non-Formulary Medication (Ascorbate Calcium/ Bioflavonoid (Sugey-C 1,000 Mg Tablet)) 1 each DAILY PO ; Start 05/24/18 at 09:00; Status UNV Non-Formulary Medication (Biotin ) 10,000 mcg DAILY PO ; Start 05/24/18 at 09:00 ; Status UNV Estradiol (Estrace) 2 mg DAILY PO Last administered on 05/28/18at 08:08; Start 05/24/18 at 09:00 Glyburide (Diabeta) 2.5 mg DAILY PO Last administered on 05/27/18at 08:52; Start 05/24/18 at 09:00; Stop 05/27/18 at 16:40; Status DC Metformin HCl (Glucophage) 1,000 mg BIDWMEALS PO Last administered on at 08:15; Start 05/24/18 at 17:00 Ferrous Sulfate (Iron Oral Solution) 300 mg BIDWMEALS PO Last administered on 05/28/18at 08:08; Start 05/27/18 at 12:00 Polyethylene Glycol (miraLAX PACKET) 17 gm PRN DAILY PRN PO CONSTIPATION; Start 05/27/18 at 10:45 Potassium Chloride (Klor-Con) 40 meq 1X ONCE PO Last administered on at 12:55; Start 05/27/18 at 12:45; Stop 05/27/18 at 12:46; Status DC Psyllium Hydrophilic Mucilloid (Metamucil Fiber Packet) 1 pkt DAILY PO ; Start 05/28/18 at 09:00 Iron Sucrose 200 mg/Sodium Chloride 110 ml @ 55 mls/hr 1X ONCE IV Last administered on 05/27/18at 12:55; Start 05/27/18 at 13:00; Stop 05/27/18 at 14 :59; Status DC Glyburide (Diabeta) 2.5 mg DAILYWBKFT PO Last administered on 05/28/18at 08:09 ; Start 05/28/18 at 08:00 Neomycin/ Polymyxin/ Bacitracin (Triple Antibiotic Ointment) 1 pkt BID TP Last administered on 05/28/18at 09:55; Start 05/28/18 at 10:00 Active Scripts Active [Pantoprazole] 40 MG Tablet.dr 40 Mg PO DAILYAC Reported Vitamin D3 (Cholecalciferol (Vitamin D3)) 1,000 Unit Tablet 3 Tab PO DAILY Metformin Hcl 1,000 Mg Tablet 1,000 Mg PO BID Glyburide 2.5 Mg Tablet 1 Tab PO DAILY Famotidine 40 Mg Tablet 40 Mg PO DAILY Levothyroxine Sodium 50 Mcg Tablet 50 Mcg PO DAILYAC Estrace (Estradiol) 2 Mg Tablet 2 Mg PO DAILY Biotin 10,000 Mcg Capsule 10,000 Mcg PO DAILY Sugey-C 1,000 Mg Tablet (Ascorbate Calcium/Bioflavonoid) 1 Each Tablet 1 Each PO DAILY Vitals/I & O Vital Sign - Last 24 Hours 05/27/18 05/27/18 05/27/18 05/27/18 15:00 19:00 20:00 23:00 Temp 97.7 97.6 97.9 97.7 97.6 97.9 Pulse 80 93 82 Resp 16 16 16 B/P (MAP) 155/71 (99) 172/85 (114) 167/70 (102) Pulse Ox 96 92 91 O2 Delivery Room Air Room Air Nasal Cannula Room Air O2 Flow Rate 2.0 05/28/18 05/28/18 05/28/18 05/28/18 03:00 07:00 08:00 11:00 Temp 97.6 98.6 98.3 97.6 98.6 98.3 Pulse 83 87 97 Resp 16 16 20 B/P (MAP) 143/67 (92) 147/58 (87) 161/80 (107) Pulse Ox 93 98 84 O2 Delivery Room Air Room Air Nasal Cannula Room Air O2 Flow Rate 2.0 Intake and Output 05/27/18 05/27/18 05/28/18 15:00 23:00 07:00 Intake Total 250 ml 360 ml Balance 250 ml 360 ml RICO ABARCA III DO May 28, 2018 11:59
== END 2018-05-28 13:23 | disposition home or self-care (01) | DRG 356 ==
LOC: 1 WEST ICU 21:00 → 5 NORTH 05-24 08:30
PROVIDERS: ADMIT Internal Medicine; ATTEND Internal Medicine
PROC: 0DJD8ZZ Inspection of Lower Intestinal Tract, Via Natural or Artificial Opening Endoscopic (ICD-10-PCS; 2018-05-22)
PROC: 0DJ08ZZ Inspection of Upper Intestinal Tract, Via Natural or Artificial Opening Endoscopic (ICD-10-PCS; 2018-05-22)
PROC: B40 Imaging, Lower Arteries, Plain Radiography (ICD-10-PCS; 2018-05-22)
PROC: 04L Lower Arteries, Occlusion (ICD-10-PCS; principal; 2018-05-22 13:00)
PROC: 30233N1 Transfusion of Nonautologous Red Blood Cells into Peripheral Vein, Percutaneous Approach (ICD-10-PCS; 2018-05-23)
DX: K57.31 Diverticulosis of large intestine without perforation or abscess with bleeding (principal); E43 Unspecified severe protein-calorie malnutrition; D62 Acute posthemorrhagic anemia; I95.9 Hypotension, unspecified; E03.9 Hypothyroidism, unspecified; E11.9 Type 2 diabetes mellitus without complications; E78.5 Hyperlipidemia, unspecified; K21.9 Gastro-esophageal reflux disease without esophagitis; K64.8 Other hemorrhoids; Z82.49 Family history of ischemic heart disease and other diseases of the circulatory system; Z88.8 Allergy status to other drugs, medicaments and biological substances; Z79.899 Other long term (current) drug therapy; Z68.33 Body mass index [BMI] 33.0-33.9, adult
CPT/HCPCS: 36415; 37244; 45378; 71046; 74174; 75726; 76937; 78278; 80048; 80053; 82607; 82962; 83540; 83550; 85014; 85018; 85025; 85027; 85045; 85610; 86850; 86900; 86901; 86920; 87641; 96374; 99152; 99153; A9560; C1713; C1760; C1769; C1887; C1892; C1894; C9113; G0269; G0500; J0171; J1644; J1756; J1815; J2250; J2405; J2704; J3010; J7030; P9016; Q9966; Q9967; 97116; 97530